=== PATIENT | female | born 1950 | race Caucasian/White ===

== ENCOUNTER 2022-03-12 20:53 | Emergency (ER) | payer MEDICARE, SELFPAY ==
[2022-03-12 21:27] VITALS: BP 171/85; PULSE 98; RESP 18; TEMP 36.3; O2SAT 97; BMI 33.7
--- NOTE | 2022-03-12 21:43 | CRLHL7_ITS ---
For Patients: As a result of the Century Cures Act, medical imaging exams and procedure reports are released immediately into your electronic medical record. You may view this report before your referring provider. If you have questions, please contact your health care provider. INDICATION: Hematuria. History of kidney stones. TECHNIQUE: CT abdomen and pelvis without contrast. COMPARISON: CT chest/abdomen/pelvis dated 11/26/2021. FINDINGS: Lower chest: No focal consolidation. Evaluation of solid organs is limited secondary to lack of IV contrast administration. Liver: Too small to characterize hypodense hepatic lesions, stable, likely benign in the absence of a known malignancy. Gallbladder and bile ducts: Postcholecystectomy. Pancreas: Unremarkable. Spleen: Unremarkable. Adrenal glands: Unremarkable. Kidneys: Multiple subcentimeter right renal calculi, overall renal stone burden has increased since prior study. There is a 0.6 cm calculus in the right renal pelvis, however there is no significant hydronephrosis or hydroureter. Interval decrease in size of a 3.0 cm cyst in the lower pole of the right kidney. Retroperitoneum: No lymphadenopathy. Bowel and mesentery: Bowel is not obstructed. Postsurgical changes at the cecum. No significant ascites. Stable perigastric postoperative changes. Stable sequelae of sclerosing mesenteritis. No pneumoperitoneum. Bladder: Decompressed, suboptimally evaluated. No bladder calculi identified. Reproductive organs: Posthysterectomy. Pelvic lymph nodes: No lymphadenopathy. Vessels: Mild atherosclerotic calcifications. Abdominal wall: No acute abdominal wall abnormality. Bones: Multilevel degenerative changes of the spine. Bones are osteopenic. Stable sclerotic lesion in the L2 vertebral body. IMPRESSION: 1. Multiple subcentimeter right renal calculi, overall renal stone burden has increased since prior study. This includes a 0.6 cm calculus in the right renal pelvis. There is no significant hydronephrosis or hydroureter. 2. Interval decrease in size of a 3.0 cm cyst in the lower pole of the right kidney. 3. Stable additional incidental findings as above. Please note that all CT scans at this facility use dose modulation, iterative reconstruction, and/or weight-based dosing when appropriate to reduce radiation dose to as low as reasonably achievable. Dictated by Nelli Lynn MD @ 03/12/2022 10:56:46 PM (Electronically Signed)
[2022-03-12 22:08] LABS: Appearance Urine Slightly Cloudy (Clear); Bilirubin Urine 2+ (Negative); Blood Urine 3+ (Negative); Color Urine Red (Yellow); Glucose Urine Negative (Negative); Ketones Urine 1+ (Negative); Leukocyte Esterase Urine Negative (Negative); Nitrite Urine Negative (Negative); Protein Urine 3+ (Negative); Specific Gravity Urine 1.015 (1.000-1.030); pH Urine 5.5 (5.0-8.5)
[2022-03-12 22:12] LABS: Chloride* 105 mmol/L (96-114)
[2022-03-12 22:13] LABS: Potassium* 3.9 mmol/L (3.6-5.1); Sodium* 141 mmol/L (135-149)
[2022-03-12 22:15] LABS: Creatinine* 1.1 mg/dL (0.5-1.5); Est. Creatinine Clearance* 44.29; Estimated Glomerular Filt Rate 53 ml/min
[2022-03-12 22:16] LABS: Blood Urea Nitrogen* 16 mg/dL (7-30); Calcium* 8.5 mg/dL (8.4-10.6); Carbon Dioxide* 31 mmol/L (20-32); Glucose* 83 mg/dL (60-115); INR 2.53 (0.91-1.10); Prothrombin Time 27.6 Seconds
[2022-03-12 22:19] LABS: Bacteria Urine Few; RBC Urine >100 (0-2); Squamous Epithelial Cell Urine Few (None-Few)
[2022-03-12 22:20] LABS: Basophils Absolute Auto 0.04 K/uL (0.00-0.30); Basophils Percent Auto 0.7 % (0.0-3.0); Eosinophils Absolute Auto 0.37 K/uL (0.00-0.50); Eosinophils Percent Auto 6.2 % (0.0-7.0); Hematocrit 40.3 % (33.0-51.0); Hemoglobin* 12.9 gm/dL (12.0-16.0); Immature Granulocytes Abs Auto 0.04 K/uL (0.00-0.30); Lymphocytes Absolute Auto 2.21 K/uL (0.90-2.90); Lymphocytes Percent Auto 36.8 % (20-44); Mean Corpuscular HGB Conc 32 gm/dL (32-36); Mean Corpuscular Hemoglobin 30 pg (26-34); Mean Corpuscular Volume 94 fL (80-100); Monocytes Percent Auto 10.2 % (0.0-11.0); Neutrophils Absolute Auto 2.73 K/uL (1.7-7.0); Neutrophils Percent Auto 45.4 % (42.0-72.0); Platelet Count* 205 K/uL (140-440); RDW Coefficient of Variation % 14.3 % (11.5-15.5)
[2022-03-12 22:21] LABS: Slide Review Reflex No
--- NOTE | 2022-03-12 22:21 | ED_ITS ---
HPI - General Adult General Time Seen by Provider: 22:10 Date Seen: 03/12/22 Chief complaint: Urogenital Problems, Female Stated complaint: blood in urine and bruising Time Seen by Provider: 03/12/22 22:06 Source: patient Mode of arrival: ambulatory Limitations: no limitations History of Present Illness HPI narrative: 72-year-old female who presents today with hematuria. This started this evening. No other symptoms. Denies nausea, vomiting, abdominal pain, flank pain. No urinary frequency or urgency. She also has a bruise at the base for right thumb. She is on Coumadin for atrial fibrillation which previously caused acute CVA, INR yesterday was 2.3. Related Data Allergies Allergy/AdvReac Type Severity Reaction Status Date / Time No Known Drug Allergies Allergy Verified 03/12/22 21:26 Review of Systems Status of ROS: Reports: 10 or more systems reviewed and unremarkable except as noted in History and below PFSH PFSH Social History Smoking Status: Never smoker Do you use any of these nicotine containing products: None Second hand tobacco smoke exposure: No How often do you have a drink containing alcohol: monthly or less How many standard drinks containing alcohol do you have on a typical day: 1 or 2 How often do you have six or more drinks on one occasion: Never AUDIT-C Alcohol total score: 1 Non-prescribed substance use: denies use service: No Exam Const: Vital Signs, click to edit/add: Vital Signs - 24 hr 03/12/22 21:27 Temperature 97.4 F L Pulse Rate [Pulse Oximeter] 98 Respiratory Rate 18 Blood Pressure [Le ft Forearm] 171/85 H Pulse Oximetry 97 Oxygen Delivery Me thod Room Air Documenting provider has reviewed patient's vital signs: yes Common normals: no apparent distress, oriented x3, alert and well nourished HENMT: Common normals: normocephalic, head/scalp atraumatic, external ears normal and external nose normal Head and scalp: normocephalic and atraumatic Nose: external nose normal External ear: external ears normal Eye: Common normals: PERRL and conjunctivae normal Conjunctiva: conjunctiva(e) normal Pupil: PERRL Neck & C-Spine: Common normals: full ROM, no lymphadenopathy and supple Chest: Common normals: palpation of chest normal Resp: Common normals: normal respiratory effort and clear to auscultation bilaterally Auscultation: clear to auscultation bilaterally Cardio: Common normals: regular rate, regular rhythm and no murmurs Rate: regular rate Rhythm: regular rhythm GI: Common normals: Normal to inspection, nondistended, normoactive bowel sounds present, soft to palpation and non-tender Palpation: soft : Common normals: no CVA tenderness Bladder/kidney exam: no CVA tenderness Back & Pelvis: Common normals: no CVA tenderness and thoracic and lumbar spine normal to inspection Extremity: Common normals: normal to inspection, full ROM and no pedal edema Neuro: Common normals: oriented x3, CN's II-XII intact bilaterally and no focal motor deficits Sensorium/orientation: alert Psych: Common normals: mental status grossly normal Skin: Common normals: no rashes or lesions noted General skin exam: no rashes or lesions noted Course Course Hospital Course: Patient seen and examined, prior records reviewed. Patient presents with painless hematuria today. History of kidney stones. CT scan personally reviewed by me shows some stones in the kidneys bilaterally but no ureteral stones, also a right renal cyst. There appears to be some bladder wall thickening although this may be due to decompression of the bladder. Labs and urinalysis are ordered if these are normal, patient be discharged with outpatient follow-up. Reevaluation(s) Reevaluation #1: Urinalysis demonstrates hematuria with few bacteria, white blood cells not out of proportion to level of hematuria. INR is therapeutic. Basic panel is reassuring. Radiology interpretation of CT agrees with my initial inter pretation. Patient should follow up with the primary care next week and Urology referral if hematuria persists for cystoscopy for evaluation for bladder cancer, av malformation, or other cause of hematuria. At this point, would have patient continue her anticoagulation as risk of the acute CVA is higher than risk of severe hemorrhage from hematuria. Vital Signs Vital signs: Initial Vital Signs Temperature 97.4 F L 03/12/22 21:27 Temperature Source Temporal Artery Scan 03/12/22 21:27 Pulse Rate 98 03/12/22 21:27 Pulse Rhythm 03/12/22 21:27 Respiratory Rate 18 03/12/22 21:27 Blood Pressure 171/85 H 03/12/22 21:27 Blood Pressure Mean 113 03/12/22 21:27 Blood Pressure Position Supine 03/12/22 21:27 Pulse Oximetry 97 03/12/22 21:27 Oxygen Delivery Method 03/12/22 21:27 Vital Signs Temperature 97.4 F L 03/12/22 21:27 Pulse Rate 98 03/12/22 21:27 Respiratory Rate 18 03/12/22 21:27 Blood Pressure 171/85 H 03/12/22 21:27 Pulse Oximetry 97 03/12/22 21:27 Oxygen Delivery Method 03/12/22 21:27 Temperature 97.4 F L 03/12/22 21:27 Pulse Rate 98 03/12/22 21:27 Respiratory Rate 18 03/12/22 21:27 Blood Pressure 171/85 H 03/12/22 21:27 Pulse Oximetry 97 03/12/22 21:27 Oxygen Delivery Method 03/12/22 21:27 Medical Decision Making Medical Records Medical records reviewed: Yes I reviewed the patient's medical records Lab Data Lab results reviewed: Yes I reviewed the patient's lab results Labs: Lab Results 03/12/22 03/12/22 03/12/22 Range/Units 21:53 21:55 21:55 WBC 6.00 (4.50-11.00) K/uL RBC 4.30 (4.00-5.20) m/uL Hgb 12.9 (12.0-16.0) gm/dL Hct 40.3 (33.0-51.0) % MCV 94 (80-100) fL MCH 30 (26-34) pg MCHC 32 (32-36) gm/dL RDW Coeff of Walt 14.3 (11.5-15.5) % Plt Count 205 (140-440) K/uL Neut % (Auto) 45.4 (42.0-72.0) % Lymph % (Auto) 36.8 (20-44) % [place] % (Auto) 10.2 (0.0-11.0) % Eos % (Auto) 6.2 (0.0-7.0) % Baso % (Auto) 0.7 (0.0-3.0) % Neut # (Auto) 2.73 (1.7-7.0) K/uL Lymph # (Auto) 2.21 (0.90-2.90) K/uL [place] # (Auto) 0.60 (0.00-0.90) K/UL Eos # (Auto) 0.37 (0.00-0.50) K/uL Baso # (Auto) 0.04 (0.00-0.30) K/uL Abs Immat Gran (auto) 0.04 (0.00-0.30) K/uL INR 2.53 H (0.91-1.10) Sodium (135-149) mmol/L Potassium (3.6-5.1) mmol/L Chloride (96-114) mmol/L Carbon Dioxide (20-32) mmol/L BUN (7-30) mg/dL Creatinine (0.5-1.5) mg/dL Estimated Creat Clear Estimated GFR ml/min Glucose (60-115) mg/dL Calcium (8.4-10.6) mg/dL Urine Color Red A (Yellow) Urine Appearance Slightly Cloudy A (Clear) Urine pH 5.5 (5.0-8.5) Ur Specific [place] 1.015 (1.000-1.030) Urine Protein 3+ A (Negative) Urine Glucose (UA) Negative (Negative) Urine Ketones 1+ A (Negative) Urine Blood 3+ A (Negative) Urine Nitrite Negative (Negative) Urine Bilirubin 2+ A (Negative) Urine Urobilinogen 1.0 (0.2-1.0) Ur Leukocyte Esterase Negative (Negative) Urine RBC >100 A (0-2) Urine WBC 5-10 A (0-5) Ur Squamous Epith Cells Few (None-Few) Urine Bacteria Few A (None) 03/12/22 Range/Units 21:55 WBC (4.50-11.00) K/uL RBC (4.00-5.20) m/uL Hgb (12.0-16.0) gm/dL Hct (33.0-51.0) % MCV (80-100) fL MCH (26-34) pg MCHC (32-36) gm/dL RDW Coeff of Walt (11.5-15.5) % Plt Count (140-440) K/uL Neut % (Auto) (42.0-72.0) % Lymph % (Auto) (20-44) % [place] % (Auto) (0.0-11.0) % Eos % (Auto) (0.0-7.0) % Baso % (Auto) (0.0-3.0) % Neut # (Auto) (1.7-7.0) K/uL Lymph # (Auto) (0.90-2.90) K/uL [place] # (Auto) (0.00-0.90) K/UL Eos # (Auto) (0.00-0.50) K/uL Baso # (Auto) (0.00-0.30) K/uL Abs Immat Gran (auto) (0.00-0.30) K/uL INR (0.91-1.10) Sodium 141 (135-149) mmol/L Potassium 3.9 (3.6-5.1) mmol/L Chloride 105 (96-114) mmol/L Carbon Dioxide 31 (20-32) mmol/L BUN 16 (7-30) mg/dL Creatinine 1.1 (0.5-1.5) mg/dL Estimated Creat Clear 44.29 Estimated GFR 53 ml/min Glucose 83 (60-115) mg/dL Calcium 8.5 (8.4-10.6) mg/dL Urine Color (Yellow) Urine Appearance (Clear) Urine pH (5.0-8.5) Ur Specific [place] (1.000-1.030) Urine Protein (Negative) Urine Glucose (UA) (Negative) Urine Ketones (Negative) Urine Blood (Negative) Urine Nitrite (Negative) Urine Bilirubin (Negative) Urine Urobilinogen (0.2-1.0) Ur Leukocyte Esterase (Negative) Urine RBC (0-2) Urine WBC (0-5) Ur Squamous Epith Cells (None-Few) Urine Bacteria (None) Discharge Plan Discharge Clinical Impression: Gross hematuria, Anticoagulated on Coumadin Patient Disposition: Home, Self-Care Condition: Stable Instructions: Hematuria (ED) Additional Instructions: Make sure you stay well hydrated this weekend. Take antibiotics as prescribed. Follow-up with your primary care doctor next week. If symptoms persist, follow- up with urology. Follow Up/Referrals: Mayur Foster MD [Primary Care Provider] - Stand Alone Forms: [employer] Info Instructions
[2022-03-12 23:30] VITALS: BP 133/76; PULSE 68; RESP 18; O2SAT 99
== END 2022-03-13 00:08 | disposition home or self-care (01) ==
PROVIDERS: Emergency Provider Family Medicine; PCP Family Medicine
DX: R31.0 Gross hematuria (principal)
CPT/HCPCS: 36415; 74176; 80048; 81001; 85025; 85610; 87086; 99284

== ENCOUNTER 2022-03-18 06:17 | Emergency (ER) | payer MEDICARE, SELFPAY ==
[2022-03-18 06:24] VITALS: BP 144/84; PULSE 71; RESP 24; TEMP 35.6; O2SAT 96
--- NOTE | 2022-03-18 06:57 | CRLHL7_ITS ---
For Patients: As a result of the Century Cures Act, medical imaging exams and procedure reports are released immediately into your electronic medical record. You may view this report before your referring provider. If you have questions, please contact your health care provider. Indication: Right-sided flank pain Technique: Plain-film examination of abdomen was performed Comparison: Limited portions of a CT dated March 12, 2022. Findings: Fecal retention. Pacemaker. Postsurgical changes in the right upper quadrant. Degenerative changes of the spine. Pelvic calcifications likely phleboliths. No definite left renal calcifications. Re-demonstration of calcifications overlying the right kidney consistent with urolithiasis. There is 1 calcification identified measuring about 6 millimeters which is at the level L3-L4 on the right. This might be within the proximal right ureter or ureteral pelvic junction. This appears to be slightly more distal than it was on the CT. On the CT, it did not appear to be obstructive. Impression: Right-sided urolithiasis as described Dictated by Martin Mitchell MD @ 03/18/2022 7:30:28 AM (Electronically Signed)
[2022-03-18 07:09] LABS: Basophils Absolute Auto 0.05 K/uL (0.00-0.30); Basophils Percent Auto 0.8 % (0.0-3.0); Eosinophils Absolute Auto 0.23 K/uL (0.00-0.50); Eosinophils Percent Auto 3.5 % (0.0-7.0); Hematocrit 38.6 % (33.0-51.0); Hemoglobin* 12.5 gm/dL (12.0-16.0); Immature Granulocytes Abs Auto 0.01 K/uL (0.00-0.30); Lymphocytes Absolute Auto 2.36 K/uL (0.90-2.90); Lymphocytes Percent Auto 36.4 % (20-44); Mean Corpuscular HGB Conc 32 gm/dL (32-36); Mean Corpuscular Hemoglobin 30 pg (26-34); Mean Corpuscular Volume 93 fL (80-100); Monocytes Percent Auto 7.9 % (0.0-11.0); Neutrophils Absolute Auto 3.33 K/uL (1.7-7.0); Neutrophils Percent Auto 51.2 % (42.0-72.0); Platelet Count* 189 K/uL (140-440); RDW Coefficient of Variation % 14.2 % (11.5-15.5); Red Blood Count 4.17 m/uL (4.00-5.20); White Blood Count* 6.49 K/uL (4.50-11.00)
[2022-03-18 07:12] LABS: Slide Review Reflex No
[2022-03-18] MEDS: KETOROLAC 15 MG/ML inj 30 MG IVP (07:22)
[2022-03-18 07:23] LABS: Chloride* 109 mmol/L (96-114); Sodium* 140 mmol/L (135-149)
[2022-03-18 07:24] LABS: Potassium* 3.9 mmol/L (3.6-5.1)
[2022-03-18] MEDS: 0.9 % SODIUM CHLORIDE 1000 ml 1,000 ML IV (07:25)
[2022-03-18] MEDS: ONDANSETRON 2 MG/ML inj 4 MG IVP (07:25)
[2022-03-18 07:26] LABS: Carbon Dioxide* 26 mmol/L (20-32); Creatinine* 1.1 mg/dL (0.5-1.5); Estimated Glomerular Filt Rate 53 ml/min
[2022-03-18 07:27] LABS: Blood Urea Nitrogen* 31 mg/dL (7-30); Calcium* 8.9 mg/dL (8.4-10.6); Glucose* 121 mg/dL (60-115); INR 3.05 (0.91-1.10); Prothrombin Time 31.9 Seconds
--- NOTE | 2022-03-18 07:54 | ED_ITS ---
HPI - Abdominal Pain General Chief Complaint: Flank Pain Stated Complaint: Right side pain Time Seen by Provider: 03/18/22 06:49 Source: patient, RN notes reviewed and old records reviewed Mode of arrival: ambulatory Limitations: no limitations History of Present Illness HPI narrative: 72-year-old woman returns to the emergency department after being seen 6 days ago with hematuria. Hematuria has returned but in addition is sudden onset of severe, sharp stabbing right flank pain at 4:[address] scan 2 days ago demonstrated numerous subcentimeter renal calculi on the right side as well as a 6 mm calculus in the right renal pelvis. She was initiated on Keflex for presumed urinary tract infection. Unconvincing culture is reviewed. Due to historically severe nausea with opiates she has taken some ibuprofen in the interim. Is anticoagulated with Coumadin. Six days ago when seen had an INR of 2.5. She has not had any fever. Is nauseated. History of atrial fibrillation and related CVA prompting anticoagulation. Related Data Home Medications Medication Instructions Recorded Confirmed albuterol sulfate 90 mcg/actuation inhalation 03/18/22 aerosol inhaler carvedilol 3.125 mg tablet mg 03/18/22 tamoxifen 20 mg tablet mg 03/18/22 warfarin 5 mg tablet mg 03/18/22 Previous Rx's Medication Instructions Recorded tamsulosin 0.4 mg capsule (Flomax) 0.4 mg PO DAILY #7 caps 03/18/22 Allergies Allergy/AdvReac Type Severity Reaction Status Date / Time No Known Drug Allergies Allergy Verified 03/18/22 06:31 Review of Systems Status of ROS Reports: 6 or more systems reviewed and unremarkable except as noted in History and below [facility] Social History Smoking Status: Never smoker Do you use any of these nicotine containing products: None Second hand tobacco smoke exposure: No How often do you have a drink containing alcohol: monthly or less How many standard drinks containing alcohol do you have on a typical day: 1 or 2 How often do you have six or more drinks on one occasion: Never AUDIT-C Alcohol total score: 1 Non-prescribed substance use: denies use service: No Exam Narrative: Exam Narrative: Is pleasant. clearly uncomfortable. With an emesis bag. Hand at right flank. Breathing easily. Moving all extremities difficulty. Well perfused peripherally. No lower extremity edema. Abdomen is soft. There is some right flank tenderness. Const: Vital Signs, click to edit/add: Vital Signs - 24 hr 03/18/22 06:24 03/18/22 08:35 03/18/22 08:39 Temperature 96.0 F L Pulse Rate [Right Pulse Oximeter] 71 Respiratory Rate 24 Blood Pressure [Ri ght Upper Arm] 144/84 H Pulse Oximetry 96 84 L 84 L Oxygen Delivery Me thod Room Air Room Air Nasal Cannula Oxygen Flow Rate 2 03/18/22 08:37 03/18/22 10:19 Temperature Pulse Rate [Right Pulse Oximeter] Respiratory Rate Blood Pressure [Ri ght Upper Arm] Pulse Oximetry 96 98 Oxygen Delivery Me thod Room Air Room Air Oxygen Flow Rate 2 Documenting provider has reviewed patient's vital signs: yes Course Course Hospital Course: Interviewed and exam as above. IV has been placed blood drawn. Reevaluation(s) Reevaluation #1: Returning after fluids and ketorolac. Looks more comfortable and she says it has taken the edge off. Though she clearly is still in a good deal of discomfort. We decided to proceed with that 0.5 mg of Dilaudid, like the less nausea inducing than morphine. Zofran is already on board, apparently this typically helps. Will add diphenhydramine for the anti-histaminic effect. Reevaluation #2: Markedly improved on reassessment with only a very small discomfort. Consultations Consultation #1: Discussed hematuria and anticoagulation with colleague. Vital Signs Vital signs: Initial Vital Signs Temperature 96.0 F L 03/18/22 06:24 Temperature Source Temporal Artery Scan 03/18/22 06:24 Pulse Rate 71 03/18/22 06:24 Respiratory Rate 24 03/18/22 06:24 Blood Pressure 144/84 H 03/18/22 06:24 Blood Pressure Mean 104 03/18/22 06:24 Blood Pressure Position Sitting 03/18/22 06:24 Pulse Oximetry 96 03/18/22 06:24 Oxygen Delivery Method 03/18/22 06:24 Vital Signs Temperature 96.0 F L 03/18/22 06:24 Pulse Rate 71 03/18/22 06:24 Respiratory Rate 24 03/18/22 06:24 Blood Pressure 144/84 H 03/18/22 06:24 Pulse Oximetry 96 03/18/22 06:24 Oxygen Delivery Method 03/18/22 06:24 Temperature 96.0 F L 03/18/22 06:24 Pulse Rate 71 03/18/22 06:24 Respiratory Rate 24 03/18/22 06:24 Blood Pressure 144/84 H 03/18/22 06:24 Pulse Oximetry 98 03/18/22 10:19 Oxygen Delivery Method 03/18/22 10:19 Oxygen Flow Rate 2 03/18/22 08:39 MDM - Abdominal Pain MDM Narrative Medical decision making narrative: We discussed options for pain management. Suspect that the stone that was evident in the renal pelvis has drifted. She would prefer not to receive opiates due to degree of nausea she gets. She would like ketorolac. Discussed that this likely to worsen her INR but perhaps a 1 time dose would be acceptable. Ordered a KUB. I did review this image. Radiology over-read also confirms renal calculi and the 6 mm renal pelvis stone noted on CT is suspected to have drifted distally. Looks to be approximately where she is complaining of pain. Medical Records Attestation: I reviewed the patient's medical records. Lab Data Attestation: I reviewed the patient's lab results. Labs: Lab Results 03/18/22 03/18/22 03/18/22 Range/Units 06:57 06:57 06:57 WBC 6.49 (4.50-11.00) K/uL RBC 4.17 (4.00-5.20) m/uL Hgb 12.5 (12.0-16.0) gm/dL Hct 38.6 (33.0-51.0) % MCV 93 (80-100) fL MCH 30 (26-34) pg MCHC 32 (32-36) gm/dL RDW Coeff of Walt 14.2 (11.5-15.5) % Plt Count 189 (140-440) K/uL Neut % (Auto) 51.2 (42.0-72.0) % Lymph % (Auto) 36.4 (20-44) % [place] % (Auto) 7.9 (0.0-11.0) % Eos % (Auto) 3.5 (0.0-7.0) % Baso % (Auto) 0.8 (0.0-3.0) % Neut # (Auto) 3.33 (1.7-7.0) K/uL Lymph # (Auto) 2.36 (0.90-2.90) K/uL [place] # (Auto) 0.50 (0.00-0.90) K/UL Eos # (Auto) 0.23 (0.00-0.50) K/uL Baso # (Auto) 0.05 (0.00-0.30) K/uL Abs Immat Gran (auto) 0.01 (0.00-0.30) K/uL INR 3.05 H (0.91-1.10) Sodium 140 (135-149) mmol/L Potassium 3.9 (3.6-5.1) mmol/L Chloride 109 (96-114) mmol/L Carbon Dioxide 26 (20-32) mmol/L BUN 31 H (7-30) mg/dL Creatinine 1.1 (0.5-1.5) mg/dL Estimated GFR 53 ml/min Glucose 121 H (60-115) mg/dL Calcium 8.9 (8.4-10.6) mg/dL Urine Color (Yellow) Urine Appearance (Clear) Urine pH (5.0-8.5) Ur Specific [place] (1.000-1.030) Urine Protein (Negative) Urine Glucose (UA) (Negative) Urine Ketones (Negative) Urine Blood (Negative) Urine Nitrite (Negative) Urine Bilirubin (Negative) Urine Urobilinogen (0.2-1.0) Ur Leukocyte Esterase (Negative) Urine RBC (0-2) Urine WBC (0-5) Urine WBC Clumps (None) Ur Squamous Epith Cells (None-Few) Urine Bacteria (None) 03/18/22 Range/Units 09:40 WBC (4.50-11.00) K/uL RBC (4.00-5.20) m/uL Hgb (12.0-16.0) gm/dL Hct (33.0-51.0) % MCV (80-100) fL MCH (26-34) pg MCHC (32-36) gm/dL RDW Coeff of [place] (11.5-15.5) % Plt Count (140-440) K/uL Neut % (Auto) (42.0-72.0) % Lymph % (Auto) (20-44) % [place] % (Auto) (0.0-11.0) % Eos % (Auto) (0.0-7.0) % Baso % (Auto) (0.0-3.0) % Neut # (Auto) (1.7-7.0) K/uL Lymph # (Auto) (0.90-2.90) K/uL [place] # (Auto) (0.00-0.90) K/UL Eos # (Auto) (0.00-0.50) K/uL Baso # (Auto) (0.00-0.30) K/uL Abs Immat Gran (auto) (0.00-0.30) K/uL INR (0.91-1.10) Sodium (135-149) mmol/L Potassium (3.6-5.1) mmol/L Chloride (96-114) mmol/L Carbon Dioxide (20-32) mmol/L BUN (7-30) mg/dL Creatinine (0.5-1.5) mg/dL Estimated GFR ml/min Glucose (60-115) mg/dL Calcium (8.4-10.6) mg/dL Urine Color Yellow (Yellow) Urine Appearance Slightly Cloudy A (Clear) Urine pH 5.5 (5.0-8.5) Ur Specific [place] 1.025 (1.000-1.030) Urine Protein 2+ A (Negative) Urine Glucose (UA) Negative (Negative) Urine Ketones Negative (Negative) Urine Blood 3+ A (Negative) Urine Nitrite Negative (Negative) Urine Bilirubin Negative (Negative) Urine Urobilinogen 0.2 (0.2-1.0) Ur Leukocyte Esterase Negative (Negative) Urine RBC 50-100 A (0-2) Urine WBC 0-2 (0-5) Urine WBC Clumps None (None) Ur Squamous Epith Cells Few (None-Few) Urine Bacteria Few A (None) Discharge Plan Discharge Clinical Impression: Hematuria, Colic, ureteral, Calculus, ureteral Patient Disposition: Home w/ Parent or Adult Condition: Improved Additional Instructions: Continue to focus on hydration. Strain urine over this next week. Taking NSAIDs like ibuprofen is raising your INR. I would use caution with those. I know that opiates make you nauseated but pretreating them like you say with Zofran or maybe diphenhydramine would be helpful in decreasing nausea effect of opiates and then less problematic with your INR. I would follow up on Tuesday to recheck your INR. Take 1/2 usual coumadin dose today. Return for uncontrolled pain, marked increase in bleeding, repeated vomiting such that you can not control your pain, fever. Be seen also if pain still present in 5 days. Zofran and Percocet from [facility]. Prescriptions: New tamsulosin [Flomax] 0.4 mg capsule 0.4 mg PO DAILY Qty: 7 1RF Rx Instructions: for ureteral colic No Action carvedilol 3.125 mg tablet warfarin 5 mg tablet albuterol sulfate 90 mcg/actuation HFA aerosol inhaler INHALATION tamoxifen 20 mg tablet Follow Up/Referrals: Mayur Foster MD [Primary Care Provider] - Stand Alone Forms: [email or web address] Info Instructions
[2022-03-18] MEDS: HYDROmorphone 0.5 mg/0.5 ml inj IVP (08:22)
[2022-03-18] MEDS: diphenhydrAMINE 50 MG/ML inj 12.5 MG IVP (08:22)
[2022-03-18 08:35] VITALS: O2SAT 84
[2022-03-18 08:37] VITALS: O2SAT 96
[2022-03-18 08:39] VITALS: O2SAT 84
[2022-03-18 10:02] LABS: Appearance Urine Slightly Cloudy (Clear); Bilirubin Urine Negative (Negative); Blood Urine 3+ (Negative); Color Urine Yellow (Yellow); Glucose Urine Negative (Negative); Ketones Urine Negative (Negative); Leukocyte Esterase Urine Negative (Negative); Nitrite Urine Negative (Negative); Protein Urine 2+ (Negative); Specific Gravity Urine 1.025 (1.000-1.030); Urobilinogen Urine 0.2 (0.2-1.0); pH Urine 5.5 (5.0-8.5)
[2022-03-18 10:07] LABS: RBC Urine 50-100 (0-2); WBC Urine 0-2 (0-5)
[2022-03-18 10:14] LABS: Squamous Epithelial Cell Urine Few (None-Few)
[2022-03-18 10:15] LABS: Bacteria Urine Few
[2022-03-18 10:19] VITALS: O2SAT 98
== END 2022-03-18 10:13 | disposition home or self-care (01) ==
PROVIDERS: Emergency Provider Family Medicine; PCP Family Medicine
DX: R31.9 Hematuria, unspecified (principal); N20.1 Calculus of ureter
CPT/HCPCS: 36415; 74018; 80048; 81003; 81015; 85025; 85610; 87086; 96374; 96375; 99283; 99284; J1170; J1200; J1885; J2405; J7030

== ENCOUNTER 2022-03-20 07:59 | Emergency (ER) | payer MEDICARE, SELFPAY ==
[2022-03-20] VITALS (14 sets, daily range): BP systolic 122–146; BP diastolic 51–76; PULSE 60–72; RESP 14–20; TEMP 35.8; O2SAT 97–100; BMI 33.7
--- NOTE | 2022-03-20 08:22 | ED_ITS ---
HPI - General Adult General Time Seen by Provider: : Date Seen: 03/20/22 Chief complaint: Flank Pain Stated complaint: Right Flank Pain Time Seen by Provider: 03/20/22 08:04 Source: patient, RN notes reviewed and old records reviewed (Prior 2 ED visits reviewed) Mode of arrival: ambulatory Limitations: no limitations History of Present Illness HPI narrative: Patient is a 72-year-old female coming and with a known kidney stone with worsening right-sided abdominal pain. She started with hematuria I believe around March 12, was seen here. Was subsequently seen on March 18 with increased pain. KUB done on the showed that a 6 mm stone had probably moved. Patient is on chronic anticoagulation with Coumadin for history of a CVA. She states her pain has increased. She had some hematuria yesterday indicating to her that this stone probably moved. Since then she has developed increasing abdominal pain. She has been trying ibuprofen at home, has been maintained on Flomax, has been trying Percocet. She did have an emesis this morning and is nauseated. She does not think she can urinate at this time. Her pain is uncontrolled. She is requesting IV Toradol. Reviewed with her that she is on Coumadin and we need to be careful with NSAIDs. She states she has cut down on her Coumadin herself because she has been using ibuprofen for pain c ontrol. She denies any fevers. No concomitant cough or cold symptoms. She reports she has had kidney stones 7 other times and they have all passed without intervention. Related Data Home Medications Medication Instructions Recorded Confirmed albuterol sulfate 90 mcg/actuation inhalation 03/18/22 aerosol inhaler carvedilol 3.125 mg tablet mg 03/18/22 tamoxifen 20 mg tablet mg 03/18/22 warfarin 5 mg tablet mg 03/18/22 Previous Rx's Medication Instructions Recorded tamsulosin 0.4 mg capsule (Flomax) 0.4 mg PO DAILY #7 caps 03/18/22 Allergies Allergy/AdvReac Type Severity Reaction Status Date / Time No Known Drug Allergies Allergy Verified 03/18/22 06:31 Review of Systems Status of ROS: Reports: 10 or more systems reviewed and unremarkable except as noted in History and below PFSH PFSH Social History Smoking Status: Never smoker Do you use any of these nicotine containing products: None Second hand tobacco smoke exposure: No How often do you have a drink containing alcohol: monthly or less How many standard drinks containing alcohol do you have on a typical day: 1 or 2 How often do you have six or more drinks on one occasion: Never AUDIT-C Alcohol total score: 1 Non-prescribed substance use: denies use service: No Exam Const: Vital Signs, click to edit/add: Vital Signs - 24 hr 03/20/22 08:13 03/20/22 10:30 03/20/22 11:00 Temperature 96.5 F L Pulse Rate [Pulse Oximeter] 61 72 60 Respiratory Rate 20 16 16 Blood Pressure [Ri ght Upper Arm] 125/72 137/72 132/65 Pulse Oximetry 97 99 99 Oxygen Delivery Me thod Room Air Nasal Cannula Nasal Cannula Oxygen Flow Rate 2 2 03/20/22 11:30 03/20/22 12:00 03/20/22 12:30 Temperature Pulse Rate [Pulse Oximeter] 60 60 60 Respiratory Rate 16 14 14 Blood Pressure [Ri ght Upper Arm] 122/51 L 139/76 146/74 H Pulse Oximetry 100 100 99 Oxygen Delivery Me thod Nasal Cannula Nasal Cannula Nasal Cannula Oxygen Flow Rate 2 2 2 03/20/22 13:00 03/20/22 13:30 03/20/22 14:00 Temperature Pulse Rate [Pulse Oximeter] 60 60 60 Respiratory Rate 16 16 14 Blood Pressure [Ri ght Upper Arm] 139/69 131/64 122/67 Pulse Oximetry 99 100 99 Oxygen Delivery Me thod Nasal Cannula Nasal Cannula Nasal Cannula Oxygen Flow Rate 2 2 2 03/20/22 14:30 03/20/22 15:00 03/20/22 15:30 Temperature Pulse Rate [Pulse Oximeter] 60 60 60 Respiratory Rate 14 14 16 Blood Pressure [Ri ght Upper Arm] 123/62 131/62 125/59 L Pulse Oximetry 99 99 99 Oxygen Delivery Me thod Nasal Cannula Nasal Cannula Nasal Cannula Oxygen Flow Rate 2 2 2 03/20/22 17:30 03/20/22 16:30 Temperature Pulse Rate [Pulse Oximeter] 60 60 Respiratory Rate 16 15 Blood Pressure [Ri ght Upper Arm] 123/70 123/58 L Pulse Oximetry 99 100 Oxygen Delivery Me thod Nasal Cannula Nasal Cannula Oxygen Flow Rate 2 2 Documenting provider has reviewed patient's vital signs: yes Common normals: oriented x3, no limitations, healthy appearing, alert and well nourished General appearance: cooperative and in distress (Groaning a little bit, hanging onto emesis bag. Looks mildly uncomfortable) mild Nutritional appearance: overweight HENMT: Common normals: normocephalic, head/scalp atraumatic, hearing grossly normal bilaterally, external ears normal, external nose normal, nasal mucous membranes and turbinates normal, moist oral mucous membranes, oropharynx normal and dentition normal Head and scalp: normocephalic and atraumatic Nose: external nose normal and nasal mucous membranes and turbinates normal External ear: external ears normal Eye: Common normals: PERRL, EOMs intact bilaterally, conjunctivae normal and no scleral icterus Conjunctiva: conjunctiva(e) normal Pupil: PERRL Neck & C-Spine: Common normals: full ROM, no lymphadenopathy, supple, no meningeal signs, no JVD and thyroid normal Thyroid: thyroid normal Resp: Common normals: normal respiratory effort, no retractions, no use of accessory muscles and clear to auscultation bilaterally Auscultation: clear to auscultation bilaterally Cardio: Common normals: no JVD, regular rate, regular rhythm, S1 normal heart sound, S2 normal heart sound, no gallops, no clicks and no murmurs Rate: regular rate Rhythm: regular rhythm Heart sounds: S1 normal and S2 normal GI: Common normals: Normal to inspection, nondistended, normoactive bowel sounds present, soft to palpation, no hepatosplenomegaly and no masses Palpation: soft, tender (Mild tenderness right mid to lower abdomen, no rebound or guarding) Details: RLQ and no hepatosplenomegaly Neuro: Common normals: oriented x3 Sensorium/orientation: alert Meningeal signs: no meningeal signs Speech: speech normal Gait (neuro): normal gait Course Course Hospital Course: Will initiate an IV, a L of normal saline over 2 hours, 4 mg IV Zofran and 15 mg IV Toradol. We will place her on pulse oximetry and motor narcotic pain management if needed. I will recheck a CBC, basic metabolic panel and obtain urinalysis. This time I do think we should reimage her with a CT for better delineation to see if there is anything within the urinary system suggesting that she should have further intervention. We will also check an INR. Reevaluation(s) Reevaluation #1: Patient is back from CT. She is up to the bathroom on was able to leave us a urine specimen. She states her pain is letting up. I did review with her that if it was not improving that we could initiate IV narcotic medicines. She stated she really did not want to do that as those medicines just make her sick. Time: 09:03 Consultations Consultation #1: Spoke with our radiologist, he states that many stones have dropped down and or obstructing in the distal ureter. He states this is not going to pass on its own and will need intervention. I have subsequently spoken with patient. She does see Dr. Foster at [facility], will see if there is any possibility for transfer to Urology. We no longer have urology services in [place]. Time: 10:28 Consultation #2: Have spoken with the hospitalist at [facility]. Barr whom is pending acceptance of this patient, will need to talk to Urology on-call as well. There is a bed hold right now at [facility], we will have await for transfer upwards of about 8 hours. I will let them know if for some reason her COVID should come back positive or if there is a change in status. Time: 11:26 Consultation #3: Spoke with Dr. Truong in Urology. He will accept this patient via the hospitalist. Time: 11:58 Vital Signs Vital signs: Initial Vital Signs Temperature 96.5 F L 03/20/22 08:13 Temperature Source Temporal Artery Scan 03/20/22 08:13 Pulse Rate 61 03/20/22 08:13 Respiratory Rate 20 03/20/22 08:13 Blood Pressure 125/72 03/20/22 08:13 Blood Pressure Mean 89 03/20/22 08:13 Blood Pressure Position Supine 03/20/22 08:13 Pulse Oximetry 97 03/20/22 08:13 Oxygen Delivery Method 03/20/22 08:13 Vital Signs Temperature 96.5 F L 03/20/22 08:13 Pulse Rate 61 03/20/22 08:13 Respiratory Rate 20 03/20/22 08:13 Blood Pressure 125/72 03/20/22 08:13 Pulse Oximetry 97 03/20/22 08:13 Oxygen Delivery Method 03/20/22 08:13 Temperature 96.5 F L 03/20/22 08:13 Pulse Rate 60 03/20/22 17:30 Respiratory Rate 16 03/20/22 17:30 Blood Pressure 123/70 03/20/22 17:30 Pulse Oximetry 99 03/20/22 17:30 Oxygen Delivery Method 03/20/22 17:30 Oxygen Flow Rate 2 03/20/22 17:30 Medical Decision Making Lab Data Labs: Lab Results 03/20/22 03/20/22 03/20/22 Range/Units 08:30 08:30 08:30 WBC 8.08 (4.50-11.00) K/uL RBC 3.82 L (4.00-5.20) m/uL Hgb 11.6 L (12.0-16.0) gm/dL Hct 36.0 (33.0-51.0) % MCV 94 (80-100) fL MCH 30 (26-34) pg MCHC 32 (32-36) gm/dL RDW Coeff of Walt 14.2 (11.5-15.5) % Plt Count 164 (140-440) K/uL Neut % (Auto) 71.3 (42.0-72.0) % Lymph % (Auto) 19.3 L (20-44) % [place] % (Auto) 6.1 (0.0-11.0) % Eos % (Auto) 2.6 (0.0-7.0) % Baso % (Auto) 0.5 (0.0-3.0) % Neut # (Auto) 5.76 (1.7-7.0) K/uL Lymph # (Auto) 1.60 (0.90-2.90) K/uL [place] # (Auto) 0.50 (0.00-0.90) K/UL Eos # (Auto) 0.21 (0.00-0.50) K/uL Baso # (Auto) 0.04 (0.00-0.30) K/uL Abs Immat Gran (auto) 0.02 (0.00-0.30) K/uL INR 2.63 H (0.91-1.10) Sodium 137 (135-149) mmol/L Potassium 4.4 (3.6-5.1) mmol/L Chloride 105 (96-114) mmol/L Carbon Dioxide 28 (20-32) mmol/L BUN 29 (7-30) mg/dL Creatinine 1.2 (0.5-1.5) mg/dL Estimated Creat Clear 40.60 Estimated GFR 48 ml/min Glucose 145 H (60-115) mg/dL Calcium 8.6 (8.4-10.6) mg/dL Urine Color (Yellow) Urine Appearance (Clear) Urine pH (5.0-8.5) Ur Specific [place] (1.000-1.030) Urine Protein (Negative) Urine Glucose (UA) (Negative) Urine Ketones (Negative) Urine Blood (Negative) Urine Nitrite (Negative) Urine Bilirubin (Negative) Urine Urobilinogen (0.2-1.0) Ur Leukocyte Esterase (Negative) Urine RBC (0-2) Urine WBC (0-5) Ur Squamous Epith Cells (None-Few) Urine Bacteria (None) SARS-CoV-2 (PCR) (Negative) 03/20/22 03/20/22 Range/Units 08:50 10:28 WBC (4.50-11.00) K/uL RBC (4.00-5.20) m/uL Hgb (12.0-16.0) gm/dL Hct (33.0-51.0) % MCV (80-100) fL MCH (26-34) pg MCHC (32-36) gm/dL RDW Coeff of Walt (11.5-15.5) % Plt Count (140-440) K/uL Neut % (Auto) (42.0-72.0) % Lymph % (Auto) (20-44) % [place] % (Auto) (0.0-11.0) % Eos % (Auto) (0.0-7.0) % Baso % (Auto) (0.0-3.0) % Neut # (Auto) (1.7-7.0) K/uL Lymph # (Auto) (0.90-2.90) K/uL [place] # (Auto) (0.00-0.90) K/UL Eos # (Auto) (0.00-0.50) K/uL Baso # (Auto) (0.00-0.30) K/uL Abs Immat Gran (auto) (0.00-0.30) K/uL INR (0.91-1.10) Sodium (135-149) mmol/L Potassium (3.6-5.1) mmol/L Chloride (96-114) mmol/L Carbon Dioxide (20-32) mmol/L BUN (7-30) mg/dL Creatinine (0.5-1.5) mg/dL Estimated Creat Clear Estimated GFR ml/min Glucose (60-115) mg/dL Calcium (8.4-10.6) mg/dL Urine Color Yellow (Yellow) Urine Appearance Clear (Clear) Urine pH 5.0 (5.0-8.5) Ur Specific [place] >= 1.030 (1.000-1.030) Urine Protein Negative (Negative) Urine Glucose (UA) Negative (Negative) Urine Ketones Negative (Negative) Urine Blood 2+ A (Negative) Urine Nitrite Negative (Negative) Urine Bilirubin Negative (Negative) Urine Urobilinogen 0.2 (0.2-1.0) Ur Leukocyte Esterase Negative (Negative) Urine RBC 10-25 A (0-2) Urine WBC 2-5 (0-5) Ur Squamous Epith Cells Few (None-Few) Urine Bacteria Few A (None) SARS-CoV-2 (PCR) Negative SARS-CoV-2 (Negative) Imaging Data CT scan - abdomen: Attestation: I have reviewed the pertinent imaging results. Radiologist's impression: Patient: AMINA ALVARES Facility:?[facility] Patient ID:?[id number] Site Patient ID:?[id number]. Site :?[id number] Study:?CT Abdomen/Pelvis WITHOUT-03/20/2022 9:03:46 AM Ordering Physician:Tj Plascencia Final Report: Indication: Right flank pain Technique: Noncontrast CT abdomen and pelvis Please note that all CT scans at this facility use dose modulation, iterative reconstruction, and/or weight-based dosing when appropriate to reduce radiation dose to as low as reasonably achievable. Comparison: 03/12/2022 Findings: Multiple stones are now present within the right distal ureter with associated right hydroureter and right hydronephrosis. Small stones remain within the right renal pelvis. Right perinephric stranding is present along with right periureteral stranding. No stone within the bladder. Ovaries are normal. Uterus appears absent. Left ovary and left kidney are normal. Normal adrenal glands. Spleen normal. Postop changes to the stomach. Gallbladder absent. Normal noncontrast enhanced liver. 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 Trace pelvic free fluid. No bowel obstruction or free air. Lung bases clear. Stable density within the L2 vertebral body. Chronic wedging of L1. Impression: Multiple stones in the right distal ureter measuring in total approximately 1.5 cm in craniocaudad dimension. Associated right hydronephrosis and right hydroureter. A few small stones remain within the right renal pelvis. Please note that all CT scans at this facility use dose modulation, iterative reconstruction, and/or weight-based dosing when appropriate to reduce radiation dose to as low as reasonably achievable. Dictated by Mike Aguayo MD @ 03/20/2022 9:28:18 AM (Electronic Signature) Critical Care Time Critical Care Time Critical Care Time: No Discharge Plan Discharge Clinical Impression: Acute unilateral obstructive uropathy Patient Disposition: Xfer [facility] Discharge Location: [facility] Condition: Stable Prescriptions: No Action carvedilol 3.125 mg tablet warfarin 5 mg tablet albuterol sulfate 90 mcg/actuation HFA aerosol inhaler INHALATION tamoxifen 20 mg tablet tamsulosin [Flomax] 0.4 mg capsule 0.4 mg PO DAILY Qty: 7 1RF Rx Instructions: for ureteral colic Stand Alone Forms: MyHealth Info Instructions
[2022-03-20] MEDS: 0.9 % SODIUM CHLORIDE 1000 ml 1,000 ML 500 ML IV (08:35)
[2022-03-20] MEDS: ONDANSETRON 2 MG/ML inj 4 MG IVP (08:36)
[2022-03-20] MEDS: KETOROLAC 15 MG/ML inj IVP (08:38)
[2022-03-20 08:39] LABS: Basophils Absolute Auto 0.04 K/uL (0.00-0.30); Basophils Percent Auto 0.5 % (0.0-3.0); Eosinophils Absolute Auto 0.21 K/uL (0.00-0.50); Eosinophils Percent Auto 2.6 % (0.0-7.0); Hemoglobin* 11.6 gm/dL (12.0-16.0); Immature Granulocytes Abs Auto 0.02 K/uL (0.00-0.30); Lymphocytes Percent Auto 19.3 % (20-44); Mean Corpuscular HGB Conc 32 gm/dL (32-36); Mean Corpuscular Hemoglobin 30 pg (26-34); Mean Corpuscular Volume 94 fL (80-100); Monocytes Percent Auto 6.1 % (0.0-11.0); Neutrophils Absolute Auto 5.76 K/uL (1.7-7.0); Neutrophils Percent Auto 71.3 % (42.0-72.0); Platelet Count* 164 K/uL (140-440); RDW Coefficient of Variation % 14.2 % (11.5-15.5); Red Blood Count 3.82 m/uL (4.00-5.20); White Blood Count* 8.08 K/uL (4.50-11.00)
[2022-03-20 08:45] LABS: Slide Review Reflex No
[2022-03-20 08:51] LABS: Chloride* 105 mmol/L (96-114); Potassium* 4.4 mmol/L (3.6-5.1); Sodium* 137 mmol/L (135-149)
[2022-03-20 08:53] LABS: INR 2.63 (0.91-1.10); Prothrombin Time 28.5 Seconds
[2022-03-20 08:54] LABS: Blood Urea Nitrogen* 29 mg/dL (7-30); Calcium* 8.6 mg/dL (8.4-10.6); Carbon Dioxide* 28 mmol/L (20-32); Creatinine* 1.2 mg/dL (0.5-1.5); Estimated Glomerular Filt Rate 48 ml/min; Glucose* 145 mg/dL (60-115)
[2022-03-20 09:13] LABS: Appearance Urine Clear (Clear); Bilirubin Urine Negative (Negative); Blood Urine 2+ (Negative); Color Urine Yellow (Yellow); Glucose Urine Negative (Negative); Ketones Urine Negative (Negative); Leukocyte Esterase Urine Negative (Negative); Nitrite Urine Negative (Negative); Protein Urine Negative (Negative); Specific Gravity Urine >= 1.030 (1.000-1.030); Urobilinogen Urine 0.2 (0.2-1.0)
[2022-03-20 09:20] LABS: Bacteria Urine Few; Squamous Epithelial Cell Urine Few (None-Few)
[2022-03-20] MEDS: fentaNYL 100 MCG/2 ML inj 50 MCG IVP ×3 (09:49→13:37)
--- NOTE | 2022-03-20 09:53 | PC.NURSE ---
pain starting to come back, fenanyl given
[2022-03-20 11:51] LABS: SARS PCR* Negative SARS-CoV-2 (Negative)
== END 2022-03-20 17:25 | disposition short-term general hospital (02) ==
PROVIDERS: Emergency Provider Family Medicine; PCP Family Medicine
DX: N13.9 Obstructive and reflux uropathy, unspecified (principal); N20.9 Urinary calculus, unspecified; Z87.442 Personal history of urinary calculi; Z13.0 Encounter for screening for diseases of the blood and blood-forming organs and certain disorders involving the immune mechanism
CPT/HCPCS: 36415; 74176; 80048; 81001; 85025; 85610; 87086; 87635; 96374; 96375; 96376; 99284; J1885; J2405; J3010; J7030

== ENCOUNTER 2022-03-20 16:56 | Outpatient (CLI) | payer MEDICARE, SELFPAY | END 2022-03-20 16:57 | disposition home or self-care (01) | LOC: AMB 03-27 20:26 | PROVIDERS: PCP Family Medicine; Visit Provider Family Medicine | DX: N20.0 Calculus of kidney (principal); M54.9 Dorsalgia, unspecified | CPT/HCPCS: A0425; A0426 ==

== ENCOUNTER 2022-07-07 09:45 | Outpatient (RCR) | payer MEDICARE, SELFPAY ==
[2022-05-20 09:45] VITALS: BP 141/77; PULSE 82; RESP 18; TEMP 36.4; O2SAT 95
[2022-05-20 10:06] LABS: Creatinine* 1.1 mg/dL (0.5-1.5); Est. Creatinine Clearance* 44.29; Estimated Glomerular Filt Rate 53 ml/min
[2022-05-20] MEDS: DENOSUMAB 60 MG/ML SYRINGE SUBCUT (10:20)
== END 2022-10-03 23:59 | disposition home or self-care (01) ==
LOC: CCIC 09:45
PROVIDERS: PCP Family Medicine; Referring Provider Family Medicine; Visit Provider Internal Medicine Hematology & Oncology
DX: C50.911 Malignant neoplasm of unspecified site of right female breast (principal); Z17.0 Estrogen receptor positive status [ER+]; Z79.810 Long term (current) use of selective estrogen receptor modulators (SERMs); R53.83 Other fatigue; M25.512 Pain in left shoulder; I48.91 Unspecified atrial fibrillation; Z79.01 Long term (current) use of anticoagulants
CPT/HCPCS: 36415; 82310; 82565; 96372; 99202; 99212; 99214; J0897

== ENCOUNTER 2022-09-25 20:47 | Outpatient (CLI) | payer MEDICARE, SELFPAY | END 2022-09-25 20:48 | disposition home or self-care (01) | LOC: SLEEP 20:47 | PROVIDERS: PCP Family Medicine; Visit Provider Internal Medicine | DX: G47.33 Obstructive sleep apnea (adult) (pediatric) (principal) | CPT/HCPCS: 95810 ==

== ENCOUNTER 2023-02-22 10:00 | Outpatient (RCR) | payer MEDICARE, SELFPAY | END 2023-06-22 23:59 | disposition home or self-care (01) | PROVIDERS: PCP Family Medicine; Visit Provider Family Medicine | DX: M47.816 Spondylosis without myelopathy or radiculopathy, lumbar region (principal); M51.36 Other intervertebral disc degeneration, lumbar region; M54.50 Low back pain, unspecified; R26.2 Difficulty in walking, not elsewhere classified; Z51.89 Encounter for other specified aftercare | CPT/HCPCS: 97110; 97161 ==

== ENCOUNTER 2023-02-24 10:00 | Outpatient (RCR) | payer MEDICARE, SELFPAY ==
--- NOTE | 2022-11-16 13:37 | URNOTE ---
Per Karen at [facility], prior auth is not required for Prolia ([id number]). Ref #[id number]
[2022-11-18 08:52] VITALS: BP 123/82; PULSE 78; RESP 18; TEMP 36.7; O2SAT 93
[2022-11-18 09:02] LABS: Estimated Glomerular Filt Rate 59 ml/min
[2022-11-18 09:03] LABS: Calcium* 8.6 mg/dL (8.4-10.6)
[2022-11-18] MEDS: DENOSUMAB 60 MG/ML SYRINGE SUBCUT (09:17)
== END 2023-04-26 23:59 | disposition home or self-care (01) ==
LOC: CCIC 10:00
PROVIDERS: Internal Medicine Hematology & Oncology; PCP Family Medicine; Visit Provider Physician Assistant
DX: C50.911 Malignant neoplasm of unspecified site of right female breast (principal); Z17.0 Estrogen receptor positive status [ER+]; Z90.13 Acquired absence of bilateral breasts and nipples; Z79.810 Long term (current) use of selective estrogen receptor modulators (SERMs); M81.0 Age-related osteoporosis without current pathological fracture; I48.91 Unspecified atrial fibrillation; Z86.73 Personal history of transient ischemic attack (TIA), and cerebral infarction without residual deficits
CPT/HCPCS: 36415; 82310; 82565; 96372; 99212; 99214; 99215; J0897

== ENCOUNTER 2023-06-24 06:56 | Outpatient (CLI) | payer MEDICARE, SELFPAY ==
--- OUTSIDE RECORDS SUMMARY | 2023-06-24 06:58 | XMS_ITS | Continuity of Care Document ---
Author Name Unknown Organization [facility] Address [address] [place] [address] Phone Care Team Providers Care Rn Psych Name Role Phone Katerine ABRAMS MD, Miller Unavailable Unavailable Advance Directives Directive Yes / No Effective Date File Name No Information Encounters Encounter Description Practice Location Reason(s) For Visit Diagnoses Date Provider Providers Copied on Encounter [facility], [address] [facility] [address], [place], [place], [id number], [place] tel:[phone] No Information Apr-200 9 Katerine Bhatt. [address], [place], [address], . tel:[phone] Referring Provider: Miller Donald, [address] [place], [place], [facility]. tel:[phone] Family History Family Member Type Diagnosis Age At Onset No Information Payers Payer name Insurance type Covered republican ID Authoriza tirafa(s) [employer] [facility] CI [id number] Social History Type Description Quantity Date Captured Comments Sex Female Smoking Status No Information Chief Complaint And Reason For Visit No Information Reason For Referral Reason For Referral No Information History Of Present Illness Encounter Date Complaint History Of Prese nt Illness No Information Functional Status Date Functional Assessmen t No Information Instructions Date Instruction Additional Infor mation No Information Assessments Type Assessment Date No Information Patient Care Teams Name Effective Dates (start - stop) Status Members No Information
--- OUTSIDE RECORDS SUMMARY | 2023-06-24 06:58 | XMS_ITS | Continuity of Care Document ---
Author Name Unknown Organization [facility] Address [address] [place] [address] [address] [place] [address] Phone Care Team Providers Care Tourist Agent Name Role Phone No Information Unavailable Unavailable Procedures Procedure Date Office consultation, moderate 0 X-ray exam lwr spine, min 4 views Advance Directives Directive Yes / No Effective Date File Name No Information Encounters Encounter Description Practice Location Reason(s) For Visit Diagnoses Date Provider Providers Copied on Encounter [facility], [address] [place] [address], [address], tel:[phone] No Information 8-201 0 No Information Office consultation, moderate [facility], [address] [place] [address], [address], tel:[phone] [facility] No Information 0-201 0 Cody Hinojosa. [facility], [address], [address], [id number], . tel:[phone] Referring Provider: Micaela Ross, [facility] [address], [facility] [address], [place], [address] . tel:[phone] Family History Family Member Type Diagnosis Age At Onset No Information Payers Payer name Insurance type Covered green party ID Authoriza tion(s) No Information Social History Type Description Quantity Date Captured [...]
--- OUTSIDE RECORDS SUMMARY | 2023-06-24 06:58 | XMS_ITS | Continuity of Care Document ---
Author Name Unknown Organization [facility] Address [address] [address] [place] [address] Phone Care Team Providers Care Frit Coater Name Role Phone Eric Jacob MD Unavailable Unavailable Allergies, Adverse Reactions, Alerts Substance Reaction Status Criticality No Known Allergies Active No Inform ation Medications Medication Instructions Dosage Effective Dates (start - stop) Status Comments Coreg 3.125 mg tablet take 1 tablet by oral route 2 times every day with food 3.125 MG - Active Aspir-81 81 mg tablet,delayed release take 1 tablet by oral route every day - Active losartan 25 mg tablet take 1 tablet by ORAL route every day 25 MG - Active Lasix 20 mg tablet take 1 tablet by ORAL route every day as needed 20 MG - Active Prilosec OTC 20 mg tablet,delayed release take 1 Tablet by Oral route every day as needed 1 Tablet - No Longer Active Procedures Procedure Date Offic/outpt E&m New Mod-hi Subsqt Hosp-da E&m Minr Compl 9 Init Inpt Cons New/est Mod-hi 9 [facility]; W/bx 1/mx [facility] End[facility]; Dx W/wo Collec Specm 09 Ugi Endo; W/remov Fb Offic Cons New/estab Minor 15 8 U[facility] Endo; W/remov Fb EGD W/eso EUS [facility] Endo; W/remov Fb Advance Directives Directive Yes / No Effective Date File Name No Information Encounters Encounter Description Practice Location Reason(s) For Visit Diagnoses Date Provider Providers Copied on Encounter [facility], [address] [address], [place], [place], [id number], [place] tel:[phone] [facility] No Information Cecil Reyes. [address] [facility], [facility] [address], [place], [place], [id number], [place]. tel:[phone] Offic/outpt E&m New Mod-[facility], [address] [address], [place], [place], [id number], [place] tel:[phone] [facility] GI Symptoms or Concerns (chief complaint) DyspepsiaWeight lossNauseaDietar y counseling and surveillance Cecil Reyes. [address] [place] [address], [facility] [address], [place], [place], [id number], [place]. tel:[phone] Referring Provider: Mayur Foster MD W, [address] [place] [address], [place], [address]. tel:[phone] Subsqt Hosp-da E&m Minr Compl [facility], [address] [address], [place], [id number], [place] tel:[phone] [facility] No Information No Information Referring Provider: Sudarshan Adams MD, [address] [place] [address], [place], [address] . tel:[phone] Init Inpt Cons New/est Mod-hi [facility], [address] [address], [place], [id number], [place] tel:[phone] [facility] No Information Volodymyr Call. [facility], [facility] [address], [place], [place], [id number], [place]. tel:[phone] Referring Provider: Sudarshan Adams MD, [address] [place] [address], [place], [address] . tel:[phone] [facility], [address] [address], [place], [id number], [place] tel:[phone] [facility] No Information [address] [facility], [facility] [address], [place], [place], [id number], [place]. tel:[phone] [facility], [address] [address], [place], [id number], [place] tel:[phone] [facility] No Information 8200 8 No Information Offic Cons New/estab Minor 15 [facility], [address] [address], [place], [id number], [place] tel:[phone] [facility] No Information [address] [facility], [facility] [address], [place], [place], [id number], [place]. tel:[phone] Referring Provider: Leonides Bond, [address], [place], [address]. tel:[phone] [facility], [address] [address], [place], [id number], [place] tel:[phone] [facility] No Information 7 Link MD Young. [address] [facility], [address], [place], [place], [id number], [place]. tel:[phone] [facility], [address] [address], [place], [id number], [place] tel:[phone] [facility] No Information 7 No Information Referring Provider: Leonides Bond, [address], [place], [address]. tel:[phone] Family History Family Member Type Diagnosis Age At Onset Sister Problem (finding) Alive and well Father Problem (finding) Brother Problem (finding) Alive and well Daughter Problem (finding) Irritable bowel disease Mother Problem (finding) malignant neoplasm of c ervix uteri Immunizations Vaccine Date Status Comments Influenza, injectable, quadr ivalent, preservative free, 3 yrs or older administered Source : Other Provider Pneumococcal conjugate PCV 13 administere d Source: Other Provider Pneumo (2 yrs or older)(PPV) administered Source: Other Provider Payers Payer name Insurance type Covered green party ID Giacomo rendon(s) Blue Cross [place] [employer] BL [id number] Social History Type Description Quantity Date Captured Comments Alcohol Use Details Unknown Caffeine Use Details Unknown Tobacco Use Status No Information Smoking Status No Information Sex Female Chief Complaint And Reason For Visit No Information Reason For Referral Reason For Referral No Information Plan Of Treatment Date Type Action Status Goal Lifestyle education regardin g diet completed History Of Present Illness Encounter Date Complaint History Of Prese nt Illness GI Symptoms or Concerns This is a 67-year-old female who we are asked to see by Dr. Foster for postprandial abdominal pain, nausea. Apparently, the patient was also discussed with Dr. Souza, and the patient was referred here. She states over the last five to six weeks whenever she eats, she will get abdominal discomfort that lasts for two to three hours. She feels full. Discomfort she feels is in the upper epigastric area as a pressure that is constant. She will belch a lot. She does have a early satiety. She has nausea, but no vomiting.She has a history of VBG with a gastric band placed in 1997. This was removed on 10/22/2015. After that was done, she did gain about 15 pounds. More recently over the last five or six weeks with her not feeling well, she has lost about 25 pounds. Over the last two months, she has had her knee replaced and has had some pain associated with that. She has been on aspirin. In addition to the 81 mg aspirin that she takes every day, she has been taking 625 mg of aspir Functional Status Date Functional Assessmen t No Information Instructions Date Instruction Additional Infor [place] We could start by ch ecking abdominal x-ray. We should also start the patient on a PPI to see if this helps improve her symptoms. If the x-ray is nondiagnostic and the PPI is not helping, she should call and let me know that and then we will set up an upper endoscopy to help investigate her symptoms. At some point in the near future, she should have the followup colonoscopy done, I do not think that is currently urgent. Related to Dyspepsia Lifestyle education regarding di et Related to Dietary counseling and surveillance Xray Abdomen Complete Assessments Type Assessment Date No Information Patient Care Teams Name Effective Dates (start - stop) Status Members No Information
== END 2023-06-24 06:57 | disposition home or self-care (01) ==
LOC: INJ CL 06:56
PROVIDERS: PCP Family Medicine; Visit Provider Family Medicine
DX: M54.16 Radiculopathy, lumbar region (principal); M51.36 Other intervertebral disc degeneration, lumbar region
CPT/HCPCS: 62323; J0702; Q9966

== ENCOUNTER 2023-06-29 14:13 | Outpatient (CLI) | payer MEDICARE, SELFPAY ==
--- OUTSIDE RECORDS SUMMARY | 2023-06-29 14:17 | XMS_ITS | Continuity of Care Document ---
Author Name Unknown Organization [facility] Address [address] [place] [address] [address] [place] [address] Phone Care Team Providers Care Photovoltaic Panel Installer Name Role Phone No Information Unavailable Unavailable Procedures Procedure Date Office consultation, moderate 0 X-ray exam lwr spine, min 4 views Advance Directives Directive Yes / No Effective Date File Name No Information Encounters Encounter Description Practice Location Reason(s) For Visit Diagnoses Date Provider Providers Copied on Encounter [facility], [address] [place] [address], [address], tel:[phone] No Information 8-201 0 No Information Office consultation, moderate [facility], [address] [place] [address], [address], tel:[phone] [facility] No Information 0-201 0 Cody Hinojosa. [facility], [address], [address], [id number], . tel:[phone] Referring Provider: Micaela Ross, [facility] [address], [facility] [address], [place], [address] . tel:[phone] Family History Family Member Type Diagnosis Age At Onset No Information Payers Payer name Insurance type Covered republican ID Authoriza tion(s) No Information Social History [...]
--- NOTE | 2023-06-29 14:30 | CRLHL7_ITS ---
For Patients: As a result of the Century Cures Act, medical imaging exams and procedure reports are released immediately into your electronic medical record. You may view this report before your referring provider. If you have questions, please contact your health care provider. DXA BONE MINERAL DENSITY STUDY Current height (in): 67.0. Weight (lb): 225.0. Menopause age: 49. Ethnicity: White. Reason for exam: Monitor on aromatase inhibitor. 1. Have you had a previous hip or vertebral fracture? Yes. 2. Have you had any fractures during your adult life which did not result from significant trauma (e.g., auto accident)? Yes. 3. Did either of your parents have a hip fracture? No. 4. Do you smoke? No. 5. Have you ever taken Glucocorticoids? No. 6. Do you have rheumatoid arthritis? No. 7. Do you have secondary osteoporosis? No. 8. Do you drink 3 or more alcoholic drinks per day? No. 9. Are you being treated for osteoporosis? No. 10. Have you ever taken any of the following medications: Actonel, Evista, Fosamax, Miacalcin, Reclast, Boniva, Forteo, HRT (i.e. estrogen/hormone therapy), Protelos, Prolia, Vitamin D, Calcium, other ??? please specify. ANSWER: Yes, HRT, Prolia, calcium, Tamoxifen. 11. Do you have any of the following medical conditions: Anorexia or bulimia, asthma or emphysema, end stage renal disease, hyperparathyroidism, any seizure disorders, cancer, inflammatory bowel diseases, hysterectomy, other ??? please specify. ANSWER: Yes, cancer, breast cancer, hysterectomy. 12. What was your maximum height (inches)? 68. 13. Do you perform weight bearing exercise regularly? No. 14. Do you regularly consume dairy products? Yes. 15. Do you drink caffeinated beverages? Yes. 16. At what age did your period start? 13. 17. Are you premenopausal? No. 18. How many full term pregnancies have you had? 2. 19. Have you ever missed your period for more than 6 months in a row (not including or menopause)? No. TECHNIQUE: Bone mineral density study was performed using the [employer]. FINDINGS: The results of the study expressed as bone mineral density (BMD) are as follows: Lumbar spine L3-L4: BMD: 0.807 g/cm2. T-score: -2.7. Z-score: -0.2 Neck Left: BMD: 0.603 g/cm2. T-score: -2.2. Z-score: -0.2. Right: BMD: 0.591 g/cm2. T-score: -2.3. Z-score: -0.3. Total Left: BMD: 0.745 g/cm2. T-score: -1.6. Z-score: 0.1. Right: BMD: 0.766 g/cm2. T-score: -1.4. Z-score: 0.3. IMPRESSION: Osteoporosis. *Comparison exams done prior to 12/2019 were performed on different unit, [employer]. COMPARISON: Compared with scan of 06/11/2021, the bone mineral density has increased by 5.0 percent at the spine and increased by 5.9 percent at the hip. Mike Aguayo M.D. Diagnostic Radiologist [email or web address] Transcribed: 9:26 am DW/Dictated by: Mike Aguayo MD @ 07/04/2023 6:37:00 AM (Electronically Signed)
== END 2023-06-29 14:14 | disposition home or self-care (01) ==
LOC: RAD 14:14
PROVIDERS: PCP Family Medicine; Visit Provider Physician Assistant
DX: M81.0 Age-related osteoporosis without current pathological fracture (principal); Z79.811 Long term (current) use of aromatase inhibitors
CPT/HCPCS: 77080

== ENCOUNTER 2023-11-14 13:00 | Outpatient (RCR) | payer MEDICARE, SELFPAY ==
[2023-05-18 08:31] LABS: Creatinine* 1.1 mg/dL (0.5-1.5); Estimated Glomerular Filt Rate 53 ml/min
[2023-05-18 08:32] LABS: Calcium* 8.9 mg/dL (8.4-10.6)
[2023-05-18 08:49] VITALS: BP 117/79; PULSE 78; RESP 16; TEMP 36.6; O2SAT 94
[2023-05-18] MEDS: DENOSUMAB 60 MG/ML SYRINGE SUBCUT (08:49)
--- NOTE | 2023-07-01 11:40 | URNOTE ---
Prior auth obtained for Denosumab ([id number]). 06/29/2023-06/27/2024 Ref #[id number]
--- NOTE | 2023-07-08 11:44 | ONC.NURNOTE ---
Dexa scan reviewed by Tati Sierra PA-C. Per Tati, Dexa with osteoporosis, improved from 2020. No change in plan. Pt notified, verbalized understanding of plan of care.
== END 2023-11-14 23:59 | disposition home or self-care (01) ==
LOC: CCIC 13:00
PROVIDERS: Internal Medicine Hematology & Oncology; PCP Family Medicine; Referring Provider Family Medicine; Visit Provider Physician Assistant
DX: C50.911 Malignant neoplasm of unspecified site of right female breast (principal); Z17.0 Estrogen receptor positive status [ER+]
CPT/HCPCS: 36415; 82310; 82565; 96372; 99214; G0463; J0897

== ENCOUNTER 2023-12-30 08:00 | Outpatient (RCR) | payer MEDICARE, SELFPAY | END 2024-04-13 14:10 | disposition home or self-care (01) | PROVIDERS: PCP Family Medicine; Visit Provider Family Medicine | DX: M54.50 Low back pain, unspecified (principal); M48.062 Spinal stenosis, lumbar region with neurogenic claudication; Z74.09 Other reduced mobility; R29.3 Abnormal posture; R29.898 Other symptoms and signs involving the musculoskeletal system; Z51.89 Encounter for other specified aftercare | CPT/HCPCS: 97110; 97140; 97162; 97530 ==

== ENCOUNTER 2024-02-20 08:30 | Outpatient (RCR) | payer MEDICARE, SELFPAY ==
[2023-11-17 08:58] LABS: Creatinine* 0.9 mg/dL (0.5-1.5); Estimated Glomerular Filt Rate 67 ml/min
[2023-11-17 08:59] LABS: Calcium* 8.9 mg/dL (8.4-10.6)
[2023-11-17] MEDS: DENOSUMAB 60 MG/ML SYRINGE SUBCUT (09:32)
[2024-02-20 09:31] LABS: Basophils Absolute Auto 0.07 K/uL (0.00-0.30); Basophils Percent Auto 1.4 % (0.0-3.0); Eosinophils Percent Auto 10.3 % (0.0-7.0); Hematocrit 38.8 % (33.0-51.0); Hemoglobin* 12.4 gm/dL (12.0-16.0); Immature Granulocytes Abs Auto 0.01 K/uL (0.00-0.30); Immature Granulocytes Pct Auto 0.2 %; Lymphocytes Absolute Auto 1.64 K/uL (0.90-2.90); Lymphocytes Percent Auto 33.9 % (20-44); Mean Corpuscular HGB Conc 32 gm/dL (32-36); Mean Corpuscular Hemoglobin 30 pg (26-34); Mean Corpuscular Volume 93 fL (80-100); Monocytes Percent Auto 8.9 % (0.0-11.0); Neutrophils Absolute Auto 2.19 K/uL (1.7-7.0); Neutrophils Percent Auto 45.3 % (42.0-72.0); Platelet Count* 220 K/uL (140-440); RDW Coefficient of Variation % 14.4 % (11.5-15.5); Red Blood Count 4.16 m/uL (4.00-5.20); White Blood Count* 4.84 K/uL (4.50-11.00)
[2024-02-20 09:34] LABS: Slide Review Reflex No
[2024-02-20 09:41] LABS: Albumin* 3.9 g/dL (3.3-5.0); Chloride* 109 mmol/L (96-114)
[2024-02-20 09:42] LABS: Potassium* 4.2 mmol/L (3.6-5.1); Sodium* 141 mmol/L (135-149)
[2024-02-20 09:44] LABS: Alkaline Phosphatase* 86 U/L (40-150); Anion Gap 3 mEq/L (7-15); Aspartate Amino Transferase* 56 U/L (12-35); Bilirubin Total* 0.6 mg/dL (0.1-1.5); Blood Urea Nitrogen* 17 mg/dL (7-30); Carbon Dioxide* 29 mmol/L (20-32); Estimated Glomerular Filt Rate 59 ml/min; Total Protein* 6.3 g/dL (6.0-8.3)
[2024-02-20 09:45] LABS: Alanine Aminotransferase* 51 U/L (4-35); Calcium* 9.3 mg/dL (8.4-10.6); Glucose* 121 mg/dL (60-115)
== END 2024-05-15 23:59 | disposition home or self-care (01) ==
LOC: CCIC 08:30
PROVIDERS: Physician Assistant; PCP Family Medicine; Referring Provider Family Medicine; Visit Provider Internal Medicine Hematology & Oncology
DX: C50.911 Malignant neoplasm of unspecified site of right female breast (principal); Z17.0 Estrogen receptor positive status [ER+]; R42 Dizziness and giddiness; M81.0 Age-related osteoporosis without current pathological fracture; Z51.81 Encounter for therapeutic drug level monitoring; Z79.810 Long term (current) use of selective estrogen receptor modulators (SERMs); I48.91 Unspecified atrial fibrillation; Z86.73 Personal history of transient ischemic attack (TIA), and cerebral infarction without residual deficits; R51.9 Headache, unspecified; Z90.13 Acquired absence of bilateral breasts and nipples; Z79.01 Long term (current) use of anticoagulants
CPT/HCPCS: 36415; 80053; 82310; 82565; 85025; 96372; 99215; G0463; J0897

== ENCOUNTER 2024-02-29 08:17 | Outpatient (CLI) | payer MEDICARE, SELFPAY ==
--- OUTSIDE RECORDS SUMMARY | 2024-02-29 08:19 | XMS_ITS | Clinical Summary ---
Author Organization [facility] Address [address] [place] [address] Care Team Providers Care Autocad Designer Name Role Phone Mayur Foster Primary Care Provider Unavailabl e Allergies Active Allergy Reactions Criticality Noted Date Comments No Known Drug Allergy 12/07/2006 Medications Medication Sig Dispensed Refills Start Date End Date Status carvedilol (COREG) 3.125 MG tablet Take 3.125 mg by mouth 2 times daily (with meals) Active furosemide (LASIX) 20 MG tablet Take 20 mg by mouth daily as needed (swelling) Active cholecalciferol (VITAMIN D3) 125 mcg (5000 units) capsule Take 125 mcg by mouth every other day Active Zinc Sulfate 220 (50 Zn) MG TABS Take 110 mg by mouth every 3 days Active montelukast (SINGULAIR) 10 MG tablet Take 10 mg by mouth daily Active warfarin ANTICOAGULANT (COUMADIN) 5 MG tablet Take 7.5 mg by mouth daily Active dexamethasone (DECADRON) 4 MG tablet Take 16 mg by mouth daily as needed Takes for 3 days of chemo Active prochlorperazine (COMPAZINE) 10 MG tablet Take 10 mg by mouth every 6 hours as needed for nausea or vomiting Active ondansetron (ZOFRAN) 4 MG tablet Take 4 mg by mouth every 8 hours as needed for nausea Active LORazepam (ATIVAN) 0.5 MG tablet Take 0.5 mg by mouth every 6 hours as needed for anxiety, nausea or vomiting Active diclofenac (VOLTAREN) 1 % topical gelIndications:Closed fracture of multiple ribs of right side, initial encounter Apply 4 g topically 4 times daily 5 g 1 03/17/2021 Active hydrOXYzine (ATARAX) 25 MG tabletIndications:Sheba sed fracture of multiple ribs of right side, initial encounter Take 1-2 tablets (25-50 mg) by mouth every 6 hours as needed for other (adjuvant pain) 30 tablet 03/17/2021 Active Lidocaine (LIDOCARE) 4 % PatchIndications:Clos ed fracture of multiple ribs of right side, initial encounter Place 1 patch onto the skin every 24 hours To prevent lidocaine toxicity, patient should be patch free for 12 hrs daily. 10 patch 1 03/17/2021 Active oxyCODONE (ROXICODONE) 5 MG tabletIndications:Sheba sed fracture of multiple ribs of right side, initial encounter Take 1 tablet (5 mg) by mouth every 6 hours as needed for severe pain 12 tablet 03/17/2021 Active methocarbamol (ROBAXIN) 500 MG tabletIndications:Com pression fracture of L1 vertebra with routine healing, subsequent encounter Take 1 tablet (500 mg) by mouth 4 times daily as needed for muscle spasms 20 tablet 04/28/2021 Active gabapentin (NEURONTIN) 300 MG capsule Take 300 mg by mouth At Bedtime Active Active Problems Problem Noted Date Diagnosed Date Facet arthropathy, lumbosacral 08/11/2021 Compression fracture of L1 v ertebra with routine healing, subsequent encounter 04/30/2021 Rib fractures 03/15/2021 Knee pain 12/05/2014 HYPERLIPIDEMIA LDL GOAL <160 05/31/2010 DDD (degenerative disc disease), lumbosacral Disorder of bone and cartilage 08/09/2006 Overview: Problem list name updated by automated process. Provider to review Diaphragmatic hernia 08/09/2006 Overview: Problem list name updated by automated process. Provider to review s/p Gastric Bypass 08/09/2006 Overview: 2002 Hyperlipidemia 08/09/2006 Overview: Problem list name updated by automated process. Provider to review CARDIAC DYSRHYTHMIA - Pacemaker 08/03/2006 Overview: Sick Sinus Syndrome Immunizations Name Administration Dates Next Due Influenza (IIV3) PF 05/21/2010 TD,PF 7+ (Tenivac) 12/18/2002 Family History Medical History Relation Comments Family History Negative Brother 1 prostate ca Family History Negative Brother 2 Cancer Father prostate ca, ali ve 89 in 2 weeks Cancer Mother at 51, uter ine ca Hypertension Mother Family History Negative Sister 1 Diabetes Sister 2 Relation Status Comments Brother 1 Brother 2 Father Mother Sister 1 Sister 2 Social History Tobacco Use Types Packs/Day Years Used Date Smoking Tobacco: Never Smokeless Tobacco: Never Alcohol Use Standard Drinks/Week Comments Yes 0 (1 standard drink = 0.6 oz pur e alcohol) casual- 2 drinks per year PHQ-2 Answer Date Recorded PHQ-2 Score 0 01/12/2022 Adolescent Education Answer Date Record ed Getting School Help Needed Not on file 04/24 Sex and Gender Information Value Date Recorded Sex Assigned at Not on file Gender Identity Not on file Sexual Orientation Not on file Last Filed Vital Signs Vital Sign Reading Time Taken Comments Blood Pressure 165/90 05/03/2022 1:36 PM CDT Pulse 77 05/03/2022 1:36 PM CDT Temperature 36.1 ??C (96.9 ??F) 03/17/2021 7:39 AM CD T Respiratory Rate 16 03/09/2022 7:22 AM CDT Oxygen Saturation 93% 05/03/2022 1:36 PM CDT Inhaled Oxygen Concentration - - Weight 97.5 kg (215 lb) 05/03/2022 1:36 PM CDT Height 170.2 cm (5' 7) 05/03/2022 1:36 PM CDT Body Mass Index 33.67 05/03/2022 1:36 PM CDT Plan of Treatment Health Maintenance Due Date Last Done Comments ADVANCE CARE PLANNING 1950 ANNUAL REVIEW OF HM ORDERS 1950 CT COLONOGRAPHY 1950 FLEX SIG 1950 sDNA (Cologuard) 1950 DEXA 1967 HEPATITIS C SCREENING 1967 RSV VACCINE ( & 60+) (1 - 1-dose 60+ series) 2009 FIT 07/15/2010 07/15/2009, 08/09/2006 MAMMO SCREENING 07/22/2011 07/22/2010, 12/31, 08/31/2004 LIPID 05/02/2012 05/02/2007 FALL RISK ASSESSMENT 2014 COLONOSCOPY 02/08/2017 02/08/2007 COLORECTAL CANCER SCREENING 02/08/2017 MEDICARE ANNUAL WELLNESS VISIT 07/22/2022 07/22/2021, 06/17/2020 DTAP/TDAP/TD IMMUNIZATION (2 - Td or Tdap) 02/06/2023 02/06/2013, 12/18/2002 COVID-19 Vaccine (3 - season) 2023 07/28/2021, 03/13/2021 PHQ-2 (once per calendar year) 2023 01/12/2022 GLUCOSE 03/15/2024 03/15/2021, 05/01, 02/27/2011, Additional history exists INFLUENZA VACCINE (#1) 2024 , 06/17/2020, 06/04/2019, Additional history exists Pneumococcal Vaccine: 65+ Years Completed 06/17/2015, 05/16/2014 ZOSTER IMMUNIZATION Completed 12/02/2022, 08/23/2022, 03/07/2013 HPV IMMUNIZATION Aged Out No longer e ligible based on patient's age to complete this topic IPV IMMUNIZATION Aged Out No longer e ligible based on patient's age to complete this topic MENINGITIS IMMUNIZATION Aged Out No l onger eligible based on patient's age to complete this topic RSV MONOCLONAL ANTIBODY Aged Out No l onger eligible based on patient's age to complete this topic Procedures Procedure Name Priority Date/Time Associated Diagnosis Comments BASIC METABOLIC PANEL STAT 03/15/2021 7:46 PM CDT MA SCREENING DIGITAL BILATERAL Routine 07/22/2010 9:00 AM APPLIANCE SERVICER Other screening mammogram OCCULT BLOOD STOOL STAT 07/15/2009 6: 55 AM APPLIANCE SERVICER CL AFF A.M.A. LIPID PANEL Routine 05/02/2007 11:16 AM CDT Screening-Lipoid Disorders COLONOSCOPY Routine 02/08/2007 10:00 AM CDT from Last 3 Months or Most Recently Relevant to Health Maintenance Results * (ABNORMAL) Basic metabolic panel (03/15/2021 7:46 PM CDT) Sodium 139 133 - 144 mmol/L 03/15/2021 8:31 PM CDT LABORATORY Potassium 3.7 3.4 - 5.3 mmol/L 03/15/2021 8:31 PM CDT LABORATORY Chloride 107 94 - 109 mmol/L 03/15/2021 8:31 PM CDT LABORATORY Carbon Dioxide (CO2) 28 20 - 32 mmol/L 03/15/2021 8:31 PM CDT LABORATORY Anion Gap 4 3 - 14 mmol/L 03/15/2021 8:31 PM CDT LABORATORY Urea Nitrogen 13 7 - 30 mg/dL 03/15/2021 8:31 PM CDT LABORATORY Creatinine 0.92 0.52 - 1.04 mg/dL 03/15/2021 8:31 PM CDT LABORATORY Calcium 8.6 8.5 - 10.1 mg/dL 03/15/2021 8:31 PM CDT LABORATORY Glucose 148(H) 70 - 99 mg/dL 03/15/2021 8:31 PM CDT LABORATORY GFR Estimate 62 >60 mL/min/1.7 3m2 03/15/2021 8:31 PM CDT LABORATORY Comment:As of February 08, 2021, eGFR is calculated by the CKD-EPI creatinine equation, without race adjustment. eGFR can be influenced by muscle mass, exercise, and diet. The reported eGFR is an estimation only and is only applicable if the renal function is stable. Blood VENOUS LINE / Unknown Venipuncture / Unknown 03/15/2021 7:46 PM CDT 03/15/2021 7:58 PM CDT Liz Lopez MD LAB - BLOOD ORDERABL ES LABORATORY [facility] [address] Lab (1st floor, no room number) [place] [address], [facility] [phone] * Mammo Screening digital (bilat) (07/22/2010 9:00 AM APPLIANCE SERVICER) Anatomical Region Laterality Modality Breast Bilateral Other 07/22/2010 9:00 AM APPLIANCE SERVICER Impressions 07/22/2010 9:57 AM APPLIANCE SERVICER SCREENING MAMMOGRAPHY, BILATERAL, DIGITAL, w/CAD ??July ??2009. HISTORY/COMPARISON: 01/27/2007 BREAST PARENCHYMAL PATTERN: ??Heterogeneously dense. FINDINGS: ??Negative. ?? IMPRESSION: ??BI-RADS 1, NEGATIVE. Liseth Holly MD IMG MAMMOGRAPHY ORDE AMADOR * (ABNORMAL) Occult blood stool (07/15/2009 6:55 AM APPLIANCE SERVICER) Occult Blood Positive(A ) NEG MISYS 07/15/2009 6:55 AM APPLIANCE SERVICER 07/15/2009 7:02 AM APPLIANCE SERVICER Anastasia Castaneda MD LAB - STOOLS ORD ERABLES MISYS * A.M.A. LIPID PANEL (05/02/2007 11:16 AM CDT) Cholesterol 170 0 - 200 mg/dL [facility] Comment: LDL Cholesterol is the primary guide to therapy: LDL-cholesterol goal in high risk patients is <100 mg/dL and in very high risk patients is <70 mg/dL. The NCEP recommends further evaluation of: patients with cholesterol <200 mg/dL if additional risk factors are present, cholesterol >240 mg/dL, triglycerides >150 mg/dL, or HDL <40 mg/dL. Triglycerides 133 0 - 150 mg/dL [facility] HDL Cholesterol 56 50 - 110 mg/dL [facility] LDL Cholesterol Calculated 87 0 - 129 mg/dL [facility] Comment: LDL Cholesterol is the primary guide to therapy: LDL-cholesterol goal in high risk patients is <100 mg/dL and in very high risk patients is <70 mg/dL. VLDL-Cholesterol 27 0 - 30 mg/dL [facility] Cholesterol/HDL Ratio 3.0 0.0 - 5.0 [facility] 05/02/2007 11:1 6 AM CDT 05/02/2007 11:18 AM CDT Peewee Headley MD LABORATORY [facility] * COLONOSCOPY (02/08/2007 10:00 AM CDT) COLONOSCOPY Endoscopy Patient Name: Fartun Farias ?Gender: F ? Procedure Date: 02/08/2007 10:00 AM ? Date of : 1950 ? Age: 56 ? Admit Type: Outpatient ? Attending MD: Triston Bryant ? Procedure: ?Colonoscopy Indications: ?Avg risk screening for malignant neoplasm in the colon Providers: ?Triston Bryant MD Referring MD: ?? Peewee Headley MD Medicines: ?Fentanyl 100 mcg IV, Midazolam 2 mg IV, Atropine 0.6 mg IV Complications: ??No immediate complications Procedure: ?- A History and Physical has been performed, and patient ?medication allergies have been reviewed. The patient The ?risks and benefits of the procedure and the sedation options ?and risks were discussed with the patient. All questions were ?answered and informed consent was obtained. Patient ?identification and proposed procedure were verified prior to ?the procedure by the physician in the procedure room. Mental ?Status Examination: normal. Respiratory Examination: clear to ?auscultation. CV Examination: normal. ASA Grade Assessment: ?P2 A patient with mild systemic disease. After reviewing the ?risks and benefits, the patient was deemed in satisfactory ?condition to undergo the procedure. The anesthesia plan was ?to use moderate sedation / analgesia (conscious sedation). ?Immediately prior to administration of medications, the ?patient was re-assessed for adequacy to receive sedatives. ?The heart rate, respiratory rate, oxygen saturations, blood ?pressure, adequacy of pulmonary ventilation, and response to ?care were monitored throughout the procedure. The physical ?status of the patient was re-assessed after the procedure. ?After obtaining informed consent, the colonoscope was passed ?under direct vision. Throughout the procedure, the patient's ?blood pressure, pulse, and oxygen saturations were monitored ?continuously. The [id number] was introduced through ?the anus and advanced to the ileum. The colonoscopy was ?accomplished without difficulty. The patient tolerated the ?procedure well. The quality of the prep was good. ? Findings: ? The digital rectal exam was normal. The rectum, sigmoid colon, ? descending colon, splenic flexure, transverse colon, hepatic flexure, ? ascending colon, cecum, ileocecal valve and ileum were normal. The ? retroflexed view of the anal verge was normal and showed no anal or ? rectal abnormalities. The terminal ileum was normal. ? Impression: ? - The rectum, sigmoid colon, descending colon, splenic ?flexure, transverse colon, hepatic flexure, ascending colon, ?cecum, ileocecal valve and terminal ileum are normal. ?- The terminal ileum is normal. Recommendation: - Discharge patient to home (ambulatory). ?- Collect hemoccults on three spontaneously passed stools ?annually. ?- Flexible Sigmoidoscopy in 3 years. ?- Return to primary care provider PRN. ? R Annette Sands Triston Bryant MD Signed Date: 02/08/2007 10:22 AM Number of Addenda: 0 I was physically present for the entire viewing portion of the exam. Note generated on 02/08/2007 10:02 AM RADIOLOGY RESULTS COLONOSCOPY RADIOLOG Y RESULTS 02/08/2007 10:0 0 AM CDT Jorge Headley MD PROCEDURES RADIOLOGY RESULTS from Last 3 Months or Most Recently Relevant to Health Maintenance Advance Directives For more information, please contact: [phone] * Full Code (Latest Code Status on File) Date Activated Date Inactivated Comments 03/15/2021 11:10 PM 03/17/2021 1:25 PM All basic a nd advanced life-sustaining interventions are performed as appropriate Question Answer Comments Code status determined by: Discussion with jose mckeon/ legal decision maker Care Teams Autocad Designer Relationship Specialty Start Date End Date Mayur Foster PCP - General 05/16/12
--- OUTSIDE RECORDS SUMMARY | 2024-02-29 08:19 | XMS_ITS | Continuity of Care Document ---
Author Organization [facility] Address [address] [place] [address] [address] [place] [address] Phone Care Team Providers Care Dormitory Supervisor Name Role Phone No Information Unavailable Unavailable Procedures Procedure Date Office consultation, moderate 0 X-ray exam lwr spine, min 4 views Advance Directives Directive Yes / No Effective Date File Name No Information Encounters Encounter Description Practice Location Reason(s) For Visit Diagnoses Date Provider Providers Copied on Encounter [facility], [address] [place] [address], [address], tel:[phone] No Information 8-201 0 No Information Office consultation, moderate [facility], [address] [place] [address] [address] [place], [address], tel:[phone] [facility] No Information 0-201 0 Cody Hinojosa. [facility] [place], [address], [address], [place], [place], [id number], . tel:[phone] Referring Provider: Micaela Ross, [facility] [address], [address], [place], [address] . tel:[phone] Family History Family Member Type Diagnosis Age At Onset No Information Payers Payer name Insurance type Covered democrat ID Authoriza tion(s) No Information Social History [...]
--- OUTSIDE RECORDS SUMMARY | 2024-02-29 08:19 | XMS_ITS | Referral Summary ---
Author Organization [facility] Address [address] [place] [id number] Care Team Providers Care Neonatal Critical Care Nurse Name Role Phone Mayur Foster Primary Care [...] (IIV3) PF 05/21/2010 TD,PF 7+ (Tenivac) 12/18/2002 Social History Tobacco Use Types Packs/Day Years [...] 05/03/2022 1:36 PM CDT Plan of Treatment Not on file Procedures Procedure Name Priority Date/Time Associated Diagnosis Comments BASIC METABOLIC PANEL STAT 03/15/2021 7:46 PM CDT MA SCREENING DIGITAL BILATERAL Routine 07/22/2010 9:00 AM SENIOR IOS DEVELOPER Other screening mammogram OCCULT BLOOD STOOL STAT 07/15/2009 6: 55 AM SENIOR IOS DEVELOPER CL AFF A.M.A. LIPID PANEL Routine 05/02/2007 11:16 AM CDT Screening-Lipoid Disorders COLONOSCOPY Routine 02/08/2007 10:00 AM CDT from Last 3 Months or Most Recently Relevant to Health Maintenance Results * (ABNORMAL) Basic metabolic panel (03/15/2021 7:46 PM CDT) Sodium 139 133 - 144 mmol/L 03/15/2021 8:31 PM CDT [facility] LAB[facility]AT[facility] Potassium 3.7 3.4 - 5.3 mmol/L [...] MD LAB - BLOOD ORDERABL ES LABORATORY [facility] Lab [address] Lab (1st floor, no room number) [place] [address], [facility] [phone] * Mammo Screening digital (bilat) (07/22/2010 9:00 AM SENIOR IOS DEVELOPER) Anatomical Region Laterality Modality Breast Bilateral Other 07/22/2010 9:00 AM SENIOR IOS DEVELOPER Impressions 07/22/2010 9:57 AM SENIOR IOS DEVELOPER SCREENING MAMMOGRAPHY, BILATERAL, DIGITAL, w/CAD ??July ??2009. HISTORY/COMPARISON: 01/27/2007 BREAST PARENCHYMAL PATTERN: ??Heterogeneously dense. FINDINGS: ??Negative. ?? IMPRESSION: ??BI-RADS 1, NEGATIVE. Liseth Holly MD IMG MAMMOGRAPHY MARU ALIYAALEISHA * (ABNORMAL) Occult blood stool (07/15/2009 6:55 AM SENIOR IOS DEVELOPER) Occult Blood Positive(A ) NEG MISYS 07/15/2009 6:55 AM SENIOR IOS DEVELOPER 07/15/2009 7:02 AM SENIOR IOS DEVELOPER Anastasia Castaneda MD LAB - STOOLS ORD ERABLES MISYS * A.M.A. LIPID PANEL (05/02/2007 11:16 AM CDT) Cholesterol 170 0 - 200 mg/dL [facility] Comment: LDL Cholesterol is the primary guide to therapy: LDL-cholesterol goal in high risk patients is <100 mg/dL and in very high risk patients is <70 mg/dL. The NCEP recommends further evaluation of: patients with cholesterol <200 mg/dL if additional risk factors are present, cholesterol >240 mg/dL, triglycerides >150 mg/dL, or HDL <40 mg/dL. Triglycerides 133 0 - 150 mg/dL [facility] HDL Cholesterol 56 50 - 110 mg/dL [facility] LDL Cholesterol Calculated 87 0 - 129 mg/dL [facility] Comment: LDL Cholesterol is the primary guide to therapy: LDL-cholesterol goal in high risk patients is <100 mg/dL and in very high risk patients is <70 mg/dL. VLDL-Cholesterol 27 0 - 30 mg/dL [facility] Cholesterol/HDL Ratio 3.0 0.0 - 5.0 [facility] 05/02/2007 11:1 6 AM CDT 05/02/2007 11:18 AM CDT Peewee Headley MD LABORATORY [facility] * COLONOSCOPY (02/08/2007 10:00 AM CDT) [...] and oxygen saturations were monitored ?continuously. The [id number] was introduced through ?the anus and advanced [...] Advance Directives For more information, please contact: [phone] * Full Code (Latest Code Status on File) Date Activated Date Inactivated Comments 03/15/2021 11:10 PM 03/17/2021 1:25 PM All basic a nd advanced life-sustaining interventions are performed as appropriate Question Answer Comments Code status determined by: Discussion with jose nt/ legal decision maker Care Teams Neonatal Critical Care Nurse Relationship Specialty Start Date End Date Mayur Foster PCP - General 05/16/12
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
--- OUTSIDE RECORDS SUMMARY | 2024-02-29 08:20 | XMS_ITS | Clinical Summary ---
Author Organization [employer] [facility] Address [place], [place] [address] Care Team Providers Care Sausage Cooker Name Role Phone Guera Dominique DO Primary Care Provider [phone] Allergies Active Allergy Reactions Criticality Noted Date Comments Lisinopril Cough 05/09/2014 Narcotic Antagonist Nausea Only 05/08/2014 Medications Medication Sig Dispensed Refills Start Date End Date Status ondansetron (ZOFRAN) 4 mg tabletIndication s:Closed fracture of distal end of left radius with routine healing, unspecified fracture morphology, subsequent encounter Take 1 Tablet (4 mg) by mouth every 8 hours if needed for Nausea/Vomiting. 0 1 Active tamoxifen (NOLVADEX) 20 mg tablet Take 1 Tablet by mouth once daily. 2 Active calcium carbonate (CALCIUM 600 ORAL) Take 1 Tablet by mouth 2 times daily. Active cholecalciferol (VITAMIN D3) 1,000 unit tablet Take 2,000 units by mouth two times daily. Active zinc sulfate 50 mg zinc (220 mg) capsule Take 220 mg by mouth once weekly. (on ) Active acetaminophen (TYLENOL) 325 mg tabletIndication s:Nephrolithiasi s Take 2 Tablets (650 mg) by mouth every 4 hours if needed for Pain (For mild pain.). Max acetaminophen dose: 4000mg in 24 hrs. 0 2 Active albuterol HFA (PRO-AIR; VENTOLIN; PROVENTIL) 90 mcg/actuation inhalerIndicatio ns:Bronchitis with bronchospasm Inhale 1-2 Puffs by mouth every 6 hours if needed for Shortness of Breath 2nd choice or Wheezing 1st choice. 17 g 3 Active albuterol (PROVENTIL) 0.083 % neb solutionIndicati ons:Chronic bronchitis, unspecified chronic bronchitis type (HC),Wheezing,SO B (shortness of breath) Inhale 3 mL (2.5 mg) via a nebulizer every 6 hours if needed for Cough 1st choice. 180 mL 3 Active NebulizerIndicat ions:Chronic bronchitis, unspecified chronic bronchitis type (HC),Wheezing,SO B (shortness of breath) Nebulizer, disposable neb kit x 4, reuseable neb kit x 1, mask x 1, filters x 1. Frequency of use: daily; Medication: albuterol Length of need: prn months 1 Each 3 Active fluticasone furoate-vilanter oL (Breo Ellipta) 100-25 mcg/dose inhalerIndicatio ns:Asthma, unspecified asthma severity, unspecified whether complicated, unspecified whether persistent Inhale 1 Puff by mouth once daily. 60 Each 11 3 Active CPAPIndications: JENNIFER (obstructive sleep apnea) CPAP machine for home use at pressure 4-15 cmw, nasal mask x1/3month with a nasal cushion x2/mo 1 Each 11 3 Active spironolactone (ALDACTONE) 25 mg tabletIndication s:Cerebrovascula r accident (CVA), unspecified mechanism (HC) Take 1 Tablet (25 mg) by mouth once daily. 90 Tablet 3 3 Active carvediloL (COREG) 3.125 mg tabletIndication s:Essential hypertension,PAF (paroxysmal atrial fibrillation) (HC) TAKE ONE TABLET BY MOUTH TWICE A DAY WITH MEALS 180 Tablet 2 4 Active aspirin 325 mg tablet reports taking 650 mg twice weekly for back pain 4 Active warfarin (COUMADIN) 5 mg tabletIndication s:PAF (paroxysmal atrial fibrillation) (HC),Anticoagula tion monitoring, INR range 2-3 Take by mouth 7.5 mg (5 mg x 1.5) every Mon, Wed, Fri; 5 mg (5 mg x 1) all other days in the evening OR as directed 4 Active methylPREDNISolo ne (Medrol, Nigel,) 4 mg tabletIndication s:Chronic right-sided low back pain without sciatica Take by mouth as instructed per packaging. 21 Tablet 4 024 Discontinued(*P atient states no longer taking) warfarin (COUMADIN) 5 mg tabletIndication s:PAF (paroxysmal atrial fibrillation) (HC),Anticoagula tion monitoring, INR range 2-3 Take by mouth 5 mg (5 mg x 1) every Sun, Kalee; 7.5 mg (5 mg x 1.5) all other days in the evening OR as directed 4 024 Discontinued warfarin (COUMADIN) 5 mg tabletIndication s:PAF (paroxysmal atrial fibrillation) (HC),Anticoagula tion monitoring, INR range 2-3 Take by mouth 5 mg (5 mg x 1) every Sun, Kalee; 7.5 mg (5 mg x 1.5) all other days in the evening OR as directed 111 Tablet 4 024 Discontinued(Ot her - add note to specify (E-cancel not sent)) Active Problems Problem Noted Date Diagnosed Date Chronic anticoagulation 08/02/2023 Chronic bronchitis, unspecified chronic bronchit is type 08/02/2023 Anticoagulation monitoring, INR range 2-3 2023 DDD (degenerative disc disease), lumbar 06/27/20 Overview: ~ June 2023: L4-L5 [place] epidural steroid injection by Dr. Goyal. 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 September 2020 Vitamin D deficiency 06/17/2020 Creatinine elevation 06/17/2020 Essential hypertension 07/26/2018 ACP (advance care planning) 07/18/2018 Overview: Patient has identified Health Care Agent(s): Yes Add Health Care Agents: Yes Health Care Agent(s): Primary Health Care Agent: Peter Farias Relationship: spouse Secondary Health Care Agent: Vanesa Farias Relationship: daughter Conservator: Relationship: Phone: Guardian: Relationship: Phone: Patient has Advance Care Plan Documents (Health Care Directive, POLST): Yes Advance Care Plan Documents: Health Care Directive (she was asked to provide a copy) Patient has identified Specific Treatment Preferences: Seasonal allergies 07/17/2018 PAF (paroxysmal atrial fibrillation) 07/14/2018 Cerebrovascular accident (CV A) due to embolism of right posterior cerebral artery 07/14/2018 Status post total right knee replacement 017 Ascending aortic aneurysm 02/21/2017 Overview: 3.8 cm on 02/11/2017 echo Repeat yearly Presence of permanent cardiac pacemaker 01/26/20 17 Sick sinus syndrome 01/25/2017 Status post total left knee replacement 06/02/20 16 Iron deficiency anemia 11/11/2015 s/p exploratory laparoscopy, removal of silastic VBG ring, extensive adhesiolysis, intra-op EGD 10/22/2015 Overview: Dr. Rolle Gastric band malfunction 10/21/2015 JENNIFER 08/22/2018 AHi- 6.3 09/25/2022 AHI- 11 016 Stress-induced cardiomyopathy 05/09/2014 Adenomatous colon polyp 12/18/2013 Overview: Colonoscopy 11/2013 polyps repeat in 5 years Colonoscopy 08/2019 polyps, repeat in 5 years Bronchospasm 11/28/2013 Primary osteoarthritis of both knees 11/14/2013 Gastritis 12/28/2011 Overview: EGD 11/2011 Reactive gastropathy Bradycardia 01/14/2011 Overview: S/p pacemaker 2003 Pure hypercholesterolemia 01/14/2011 Hiatal hernia 01/14/2011 Resolved Problems Problem Noted Date Diagnosed Date Resolved Date Anticoagulation monitoring, INR range 2-3 [Z79.01] 08/31/2018 04/20/2023 Anticoagulation monitoring, special range 04/20/2017 05/12/2017 Anticoagulation monitoring, special range 06/02/2016 06/09/2016 Anticoagulation monitoring, special range 05/31/2016 07/15/2016 Encounters Date Type Department Care Team Description 02/22/2024 11:00 AM CDT Orders Only [facility] [address] [place] [address] [facility] [facility] 02/22/2024 Anticoagulation (warfarin) [facility] [address] [place] [address] 1, [facility] Anticoagulation ( ) 02/22/2024 Travel 02/15/[address] [address] Josie Cortés, DO Results 02/15/2024 Anticoagulation (warfarin) [address] [address] 1, [facility] Anticoagulation 02/14/2024 3:15 PM CDT Orders Only [address] [address] Lab, [place] [facility] 02/13/2024 3:40 PM CDT Office Visit [address] [address] Josie Cortés, DO Headache (2 months. side and back of head. tylenol helps some) 02/13/2024 Travel 02/03/[address] [address] Guera Dominique, Refill Request (Warfarin) 01/30/2024 9:30 AM CDT Orders Only [address] [address] Lab[place] [facility] 01/30/2024 Anticoagulation (warfarin) [facility] [address] [place] [address] 1, [facility] Anticoagulation 01/30/[address] [address] Guera Dominique, DO Anticoagulation (INR questions) 01/30/2024 Travel 01/20/2024 1:50 PM CDT Office Visit [facility] [address] [place] [address] Erica Gillette PA Back Pain (Has arthritis in back-has been going to [facility]-woke up today with severe pain and wants some prednisone until she can get in for cortisone injection) 01/20/2024 1:30 PM CDT Orders Only [facility] [address] [place] [address] Lab[facility] [place] [facility] 01/20/2024 Anticoagulation (warfarin) [facility] [address] [place] [address] 1, [facility] Anticoagulation 01/20/2024 Travel 12/05/2023 11:45 AM CDT Orders Only [facility] [address] [place] [address] Lab[facility] [place] 12/05/2023 Anticoagulation (warfarin) [facility] [address] [place] [address] 1, [facility] Anticoagulation 12/05/2023 Travel from Last 3 Months Immunizations Name Administration Dates Next Due COVID-19 vaccine (Nuvotronics-Weatherista NTFluent Home 30mcg/0.3mL) ERICH GARCIA 07/28/2021 Influenza, High-dose Inactivated 05/20/2016,06/01,05/16/2014 Influenza, IIV3 (Age >=3 years) 05/21/2010 Influenza, IIV4 05/21/2010 Influenza, Inactivated AIIV4 (Age 65+ Years) Preserv Free 07/01/2023,07/22/2021,06/17/2020 Influenza, Inactivated IIV3 (Age 65+ Years) Preserv Free 06/04/2019,04/06/2018,06/20/2017 Pneumococcal Poly,23-Valent (Pneumovax) 05/16/20 14 Pneumococcal conj 13-Valent (Prevnar 13) 015 Td (Age >=7 Years) 12/18/2002 Td, Preservative Free (age >= 7 Years) 3 Tdap 08/04/2023,02/06/2013 Zoster (Shingrix-RZV, recombinant) 12/02/2022, Zoster (Zostavax-ZVL, live) 03/07/2013 Family History Medical History Relation Name Comments Cancer Brother 1 prostate, kidne y gall bladder(3 separate cancers) Good Health Brother 2 Other Father at 92 afte r leg fracture Heart Disease Mother at 51 due to valve dz Diabetes Sister 1 Good Health Sister 2 Anesthesia Problem No Family History Blood Disease No Family History Cancer-breast No Family History Relation Name Status Comments Brother 1 Brother 2 Father Mother Sister 1 Sister 2 Social History Tobacco Use Types Packs/Day Years Used Date Smoking Tobacco: Never Smokeless Tobacco: Never Tobacco Cessation:Counseling Given: Yes Alcohol Use Standard Drinks/Week Comments Yes 0 (1 standard drink = 0.6 oz pur e alcohol) PHQ-2 Answer Date Recorded PHQ-2 TOTAL SCORE 1 08/02/2023 Social Connections Answer Date Recorded Frequency of Communication with Friends and Fami ly 0 07/15/2023 Alcohol Use Answer Date Recorded How often do you have a drink containing alcohol ? 1 08/20/2022 How many drinks containing a lcohol do you have on a typical day when you are drinking? 0 08/20/2022 How often do you have five or more drinks on one occasion? 0 08/20/2022 Financial Resource Strain Answer Date R ecorded Difficulty of Paying Living Expenses 3 07/15/2023 Difficulty of Paying Living Expenses Not on file 07/15/2023 Food Insecurity Answer Date Recorded Worried About Running Out of Food in the Last Ye ar 1 07/15/2023 Transportation Needs Answer Date Record ed Lack of Transportation (Medical) 1 07/15/2023 Housing Stability Answer Date Recorded Unable to Pay for Housing in the Last Year 1 07/15/2023 Sex and Gender Information Value Date Recorded Sex Assigned at Not on file Gender Identity Not on file Sexual Orientation Not on file Obstetrics History Para Term AB IAB SAB Ectopic Multiple Livin g Live Births 2 2 2 2 Date Outcome GA Total Labor Labor/2nd/3rd Weight Sex Type Anes PTL Tammy A1 A5 Name Clin Term Term Last Filed Vital Signs Vital Sign Reading Time Taken Comments Blood Pressure 119/79 02/13/2024 3:38 PM CDT Pulse 79 02/13/2024 3:38 PM CDT Temperature 36.6 ??C (97.8 ??F) 08/25/2023 8:01 AM CS T Respiratory Rate 20 12/03/2022 2:09 PM CDT Oxygen Saturation 95% 01/20/2024 1:47 PM CDT Inhaled Oxygen Concentration - - Weight 98 kg (216 lb) 02/13/2024 3:38 PM CDT Height 168 cm (5' 6.14) 08/02/2023 8:48 AM DRESS OPERATOR Body Mass Index 34.71 08/02/2023 8:48 AM DRESS OPERATOR Plan of Treatment Upcoming Encounters Date Type Department Care Team (Late st Contact Info) Description 04/13/2024 1:30 PM CDT Office Visit [facility] [address] [place] [phone] Abdirashid Regalado MD [address] [facility] [address] [place], [place] [phone] 06/12/2024 10:00 AM DRESS OPERATOR Cardiac Device Check [facility] [address] [place] [phone] Health Maintenance Due Date Last Done Comments COVID-19 vaccine series ( season) 2023 07/28/2021, 03/13/2021 Influenza for age 65+ 04/01/2024 07/01/2023 , 07/22/2021, 06/17/2020, Additional history exists BMI (ht and wt on same day) for age 18+ 08/02/2024 08/02/2023, 12/03/2022, 10/07/2022, Additional history exists Depression screening for age 12+ 08/02/2024 08/02/2023, 08/02/2023, 08/02/2023, Additional history exists Medicare Wellness for age 65+ 08/02/2024, 08/20/2022, 07/22/2021, Additional history exists Colonoscopy through age 75 08/08/202408/08, 08/08/2019, 08/08/2019, Additional history exists Lipids for age 45-75 08/16/2028 08/16/2023, 06/17/2020, 08/13/2019, Additional history exists Tetanus booster 08/04/2033 08/04/2023, 07/0 04/2013, 12/18/2002, Additional history exists Pneumococcal series for age 65+ Completed 5, 05/16/2014 Hepatitis C screening for ag e 18-79 Completed 06/14/2020 (Completed [facility]) DEXA/DXA scan for age 65+ Completed 06/11/2021 Zoster (shingles) series for age 50+ Completed 12/02/2022, 08/23/2022, 03/07/2013 Tdap Completed 08/04/2023, 02/06/2013 Medical Devices Implanted Type Area Toll Test Worker Device Identifier Shelf Expiration Date Model / Serial / Lot Standard Pacemaker- 002 Implanted:2001 by Leonides Coffey MD (Quantity not on file) Standard Pacemaker GUIDANT [id number] / [id number] / Stent Uret [id number] Contour - [id number] Implanted:Qty: 1 on 03/21/2022 by Troy Quintanilla MD at [facility] Right: Ureter [facility] Urology [id number] 30 / / [id number] Stent Uret [id number] Contour - [id number] Implanted:Qty: 1 on 04/07/2022 by Troy Quintanilla MD at [facility] Right: Ureter [facility] Urology 07/09/2024 [id number] 30 / / [id number] Procedures Procedure Name Priority Date/Time Associated Diagnosis Comments INR,POCT Routine 02/22/2024 11:00 AM CDT PAF (paroxysmal atrial fibrillation) (HC) PLATELET ESTIMATE Routine 02/14/2024 3:0 0 PM CDT Headache in back of head RED CELL MORPHOLOGY Routine 02/14/2024 3 :00 PM CDT Headache in back of head BASIC METABOLIC PANEL Routine 02/14/2024 3:00 PM CDT Headache in back of head CBC W PLT NO DIFF Routine 02/14/2024 3:0 0 PM CDT Headache in back of head PROTIME-INR STAT 02/14/2024 3:00 PM CDT PAF (paroxysmal atrial fibrillation) (HC) INR,POCT Routine 01/30/2024 8:16 AM CDT PAF (paroxysmal atrial fibrillation) (HC) PROTIME-INR STAT 01/20/2024 1:33 PM CDT PAF (paroxysmal atrial fibrillation) (HC) INR,POCT Routine 12/05/2023 1:01 PM CDT PAF (paroxysmal atrial fibrillation) (HC) LIPID PANEL W REFLEX MEASURED LDL Routine 08/16/2023 8:32 AM DRESS OPERATOR Pure hypercholesterolemia SCAN-BONE DENSITOMETRY DEXA 06/11/2021 12:00 AM DRESS OPERATOR COLONOSCOPY SCREENING Routine 08/08/2019 7:39 AM DRESS OPERATOR History of colon polyps from Last 3 Months or Most Recently Relevant to Health Maintenance Results * (ABNORMAL) INR,POCT (02/22/2024 11:00 AM CDT) Only the most recent of3 resultswithin the time period is included. INR 2.4(H) <1.3 02/22/2024 11:00 AM CDT [facility] Blood BLOOD SPECIMEN / Unknown Capillary / Unknown 02/22/2024 11:00 AM CDT 02/22/2024 11:00 AM CDT Narrative [facility] - 02/22/2024 11:00 AM CDT ?Therapeutic Range 2.0-3.0 for most anticoagulated patients 2.5-3.5 or 4.0 for high risk patients Guera Dominique DO LABORATORY Performing Organization Address [facility]/ZIP Co de Phone Number [facility] [address] [place] [address], [place] [phone] * RED CELL MORPHOLOGY (02/14/2024 3:00 PM CDT) RBC COMMENT RBC morphology appears normal RBC morphology appears normal, RBC morphology within normal limits for newborns. 02/14/2024 3:43 PM CDT [facility] Blood BLOOD SPECIMEN / Unknown Venipuncture / Unknown 02/14/2024 3:00 PM CDT 02/14/2024 3:00 PM CDT Josie Cortés DO HEMATOLOGY Performing Organization Address [facility] Co de Phone Number [facility] [address] [place] [address], [place] [phone] * PLATELET ESTIMATE (02/14/2024 3:00 PM CDT) Pathologist [facility] PLATELET ESTIMATE Adequate Adequate, No estimate 02/14/2024 3:43 PM CDT [facility] Blood BLOOD SPECIMEN / Unknown Venipuncture / Unknown 02/14/2024 3:00 PM CDT 02/14/2024 3:00 PM CDT Josie Cortés DO HEMATOLOGY Performing Organization Address City/[facility]/ZIP Co de Phone Number [facility] [address] [place] [address], [place] [phone] * (ABNORMAL) CBC W PLT NO DIFF (02/14/2024 3:00 PM CDT) Pathologist [facility] WHITE BLOOD COUNT 5.1 4.5 - 11.0 thou/cu mm 02/14/2024 3:42 PM CDT [facility] RED BLOOD COUNT 4.22 4.00 - 5.20 mil/cu mm 02/14/2024 3:42 PM CDT [facility] HEMOGLOBIN 12.6 12.0 - 16.0 g/dL 02/14/2024 3:42 PM CDT [facility] HEMATOCRIT 38.4 33.0 - 51.0 % 02/14/2024 3:42 PM CDT [facility] MCV 91 80 - 100 fL 02/14/2024 3:42 PM CDT [facility] MCH 29.9 26.0 - 34.0 pg 02/14/2024 3:42 PM CDT [facility] MCHC 32.8 32.0 - 36.0 g/dL 02/14/2024 3:42 PM CDT [facility] RDW 14.6 11.5 - 15.5 % 02/14/2024 3:42 PM CDT [facility] PLATELET COUNT 197 140 - 440 thou/cu mm 02/14/2024 3:42 PM CDT [facility] MPV 11.3(H) 6.5 - 11.0 fL 02/14/2024 3:42 PM CDT [facility] Blood BLOOD SPECIMEN / Unknown Venipuncture / Unknown 02/14/2024 3:00 PM CDT 02/14/2024 3:00 PM CDT Josie Cortés DO HEMATOLOGY [facility] [address] [place] [address], * (ABNORMAL) PROTIME-INR (02/14/2024 3:00 PM CDT) Only the most recent of2 resultswithin the time period is included. INR 3.7(H) <1.3 02/14/2024 8:59 PM CDT [facility] PROTIME 40.0(H) 10.3 - 12.3 sec 02/14/2024 8:59 PM CDT [facility] Blood BLOOD SPECIMEN / Unknown Venipuncture / Unknown 02/14/2024 3:00 PM CDT 02/14/2024 3:00 PM CDT Narrative [facility] - 02/14/2024 8:59 PM CDT ?Therapeutic Range 2.0-3.0 for most anticoagulated patients 2.5-3.5 or 4.0 for high risk patients The INR is only used for patients on stable oral anticoagulant therapy. It makes no significant contribution to the diagnosis or treatment of patients whose Protime is prolonged for other reasons. INR results are increased when heparin levels exceed 1.0 U/mL, which corresponds to an aPTT >125 seconds if the patient is on UFH. Guera Tammy Eulogioveronica HEMATOLOGY [facility] [address] [place] [address], * (ABNORMAL) BASIC METABOLIC PANEL (02/14/2024 3:00 PM CDT) SODIUM 138 136 - 145 mmol/L 02/15/2024 6:30 AM [facility] POTASSIUM 4.3 3.5 - 5.1 mmol/L 02/15/2024 6:30 AM [facility] CHLORIDE 105 98 - 107 mmol/L 02/15/2024 6:30 AM [facility] CO2,TOTAL 24 22 - 29 mmol/L 02/15/2024 6:30 AM [facility] ANION GAP 9 5 - 18 02/15/2024 6:30 AM [facility] GLUCOSE 108(H) 70 - 99 mg/dL 02/15/2024 6:30 AM [facility] CALCIUM 9.4 8.8 - 10.2 mg/dL 02/15/2024 6:30 AM [facility] BUN 26(H) 8 - 23 mg/dL 02/15/2024 6:30 AM [facility] CREATININE 1.18(H) 0.50 - 0.90 mg/dL 02/15/2024 6:30 AM [facility] BUN/CREAT RATIO 22(H) 10 - 20 4 6:30 AM CDT [facility] eGFR 49(L) >90 mL/min/1.7 3m2 02/15/2024 6:30 AM CDT [facility] Comment:As of 2021, eG FR is calculated by the CKD-EPI creatinine equation without race adjustment. ??eGFR can be influenced by muscle mass, exercise, and diet. ??The reported eGFR is an estimation only and is only applicable if the renal function is stable. Blood BLOOD SPECIMEN / Unknown Venipuncture / Unknown 02/14/2024 3:00 PM CDT 02/14/2024 3:00 PM CDT Josie Cortés DO [facility] [address] [place] [address], * (ABNORMAL) LIPID PANEL W REFLEX MEASURED LDL (08/16/2023 8:32 AM DRESS OPERATOR) CHOLESTEROL,TOTAL 205(H) 100 - 199 mg/dL 08/16/2023 5:07 PM DRESS OPERATOR [facility] Comment: Cholesterol, Total Reference Ranges Desirable <200 mg/dL Borderline 200-239 mg/dL High >=240 mg/dL TRIGLYCERIDES 143 <150 mg/dL 08/16/2023 5:07 PM [facility] HDL CHOLESTEROL 63 >40 mg/dL 4 5:07 PM DRESS OPERATOR [facility] NON-HDL CHOLESTEROL 142 <145 mg/dl 08/16/2023 5:07 PM [facility] CHOL/HDL RATIO 3.25 <4.50 08/16/2023 5:07 PM [facility] LDL CHOLESTEROL 113 <=130 mg/dL 08/16/2023 5:07 PM [facility] VLDL CHOLESTEROL 29 <=30 mg/dL 08/16/2023 5:07 PM [facility] PROVIDER ORDERED STATUS RANDOM 08/16/2023 5:07 PM DRESS OPERATOR [facility] Blood BLOOD SPECIMEN / Unknown Venipuncture / Unknown 08/16/2023 8:32 AM DRESS OPERATOR 08/16/2023 8:33 AM DRESS OPERATOR Guera Dominique CHEMISTRY [facility] [address] [place] [address], * SCAN-BONE DENSITOMETRY DEXA (06/11/2021 12:00 AM DRESS OPERATOR) Anatomical Region Laterality Modality Other Scanner OTHER * COLONOSCOPY SCREENING [[id number]] (08/08/2019 7:39 AM DRESS OPERATOR) Mayur Foster MD GI PROCEDURE ORD from Last 3 Months or Most Recently Relevant to Health Maintenance Advance Directives * Full Code (Latest Code Status on File) Date Activated Date Inactivated Comments 04/07/2022 6:06 AM 04/07/2022 2:46 PM Question Answer Comments Code Status Discussion: Not Discussed * DNR Date Activated Date Inactivated Comments 03/20/2022 7:33 PM 03/22/2022 4:21 PM Question Answer Comments Code Status Discussion: Reviewed Preferences * Full Code Date Activated Date Inactivated Comments 07/17/2018 12:42 PM 07/21/2018 12:35 PM Question Answer Comments Code Status Discussion: Per Existing Order * Full Code Date Activated Date Inactivated Comments 07/14/2018 3:22 AM 07/17/2018 12:34 PM * Full Code Date Activated Date Inactivated Comments 12/22/2015 6:53 AM 12/22/2015 1:14 PM Care Teams Sausage Cooker Relationship Specialty Start Date End Date Guera Dominique DO [address] [place] [address] PCP - General Family Practice 08/06/22
--- OUTSIDE RECORDS SUMMARY | 2024-02-29 08:20 | XMS_ITS | Encounter Summary ---
Author Organization [facility] Address [address] [place] [address]. [place] [address] Care Team Providers Care Pharm Spec Name Role Phone Peewee Headley MD Primary Care Provider Mayur Foster Primary Care Provider UnavailNishant Read PA-C Unavailable [phone] Tom Dickens MD Unavailable [phone] Encounter Details Date Type Department Care Team (Late st Contact Info) Description 07/15/[address] [id number] Perla Lee MD [address] [place], [place] [id number] Social History Tobacco Use Types Packs/Day Years Used Date Smoking Tobacco: Never Smokeless Tobacco: Never Alcohol Use Standard Drinks/Week Comments Yes 0 (1 standard drink = 0.6 oz pur e alcohol) casual- 2 drinks per year Sex and Gender Information Value Date Recorded Sex Assigned at Not on file Gender Identity Not on file Sexual Orientation Not on file documented as of this encounter Progress Notes * Perla Lee MD - 07/15/2009 3:58 PM CST CC: Coffee Ground emesis and Dizziness HPI: Fartun Farias is a 59 year old female who presented to the ER this AM with complaints of not feeling well for the past several days. Has had nausea, vomiting and dizziness. Dizziness started last PM. About 5 am this AM she had a large episode of coffee ground emesis per her . Has been taking Ibuprofen recently No abdominal pain. No black tarry stools but had a guiac positive stool in the ER. No history of ulcers. Patient has no history of ulcers but has a history of gastric banding. Hashad to have dilation procedures in the past. No weight loss. Patient has also had increasingly severe PECK's. Started out just occasionally but over the past several weeks, have become debililtating. Having them almost every day. Back of head. No associated visual changes, numbness, weakness. Have been waking her from sleep at night. Family said they have lesley decline in her quality of life due to the headaches. No recent head trauma. No fevers. Patient Active Problem List Diagnoses Code ??? CARDIAC DYSRHYTHMIA - Pacemaker 427.89 ??? Osteopenia 733.90 ??? DIAPHRAGMATIC HERNIA 553.3 ??? s/p Gastric Bypass V45.86 ??? HYPERLIPIDEMIA NEC/NOS 272.4 ??? DDD (Degenerative Disc Disease), Lumbar 722.52G Past Surgical History Procedure Date ??? Gastric bypass 1997 stapling with band, last problem with this 3 years, open up with banding, surgeon-dr. omer ??? Hysterectomy, magda fibroids and precancerous calls ??? Removal gallbladder No current outpatient prescriptions on file. Allergies Allergen Reactions ??? No Known Drug Allergy Family History Mother of CHF Children alive and well Social History: . Works at [employer]. 2 children. No ETOH, tobacco and drug use. Full Code. Review Of Systems Skin: negative Eyes: negative Ears/Nose/Throat: negative Respiratory: Recently got over pleurisy Cardiovascular: Packemaker Gastrointestinal: as above Genitourinary: negative Musculoskeletal: Wrist pain after a fracture. Chronic low back pain Neurologic: as above Psychiatric: negative PE: BP 135/66, T-98.7, P 87, 96% RA Gen: Sleepy. Answers questions appropriately HEENT: TM's clear bilaterally. Mucous Membranes pink, moist. Sclera nonicteric. Neck: Supple. No adenopathy. Thyroid Midline. No masses. No nuchal rigidity CV: RRR No S3, S4, murmurs Lungs: CTA bilaterally Abdomen: + BS. Soft. NT/ND. No masses Extremities: No C/C/E Neuro: CN II-XII grossly intact. Strength 5/5 and symmetrical in extremities. FTN-FTF intact Guiac positive in ER. Labs: See FCIS A/P 1. Coffee ground emesis-some concern over GI bleed. History of gastric banding. Will consult GI. Keep NPO after midnight. Protonix IV. Will repeat H/H later on today. Patient is typed and screened. 2. Severe Headaches-increasing in severity. CT head was negative. Unable to do an MRI due to patient's pacemaker. Will get a CT of Head with contrast. Neurology consult. Will check TSH, sed rate and B12 and folate. 3. History of Sick Sinus Syndrome-has pacemaker 4. F/E/N-will keep on maintenance fluids. 5. Disp: Anticipate several days. Perla Lee MD ETRICS SPECIALIST documented in this encounter Plan of Treatment Not on file documented as of this encounter Visit Diagnoses Not on filedocumented in this encounter Care Teams Pharm Spec Relationship Specialty Start Date End Date Peewee Headley MD PCP - General 08/09/06 05/15/12 Mayur Foster PCP - General 05/16/12 Nishant Garcia PA-C [id number] [place] [id number] [place] [id number] Assigned Musculoskeletal Provider 05/03/21 01/21/23 [place] [id number] [address] [place] [id number] Assigned Neuroscience Provider 08/16/21 11/21/23 documented as of this encounter
--- NOTE | 2024-02-29 09:00 | CRLHL7_ITS ---
For Patients: As a result of the Century Cures Act, medical imaging exams and procedure reports are released immediately into your electronic medical record. You may view this report before your referring provider. If you have questions, please contact your health care provider. Indication: Headaches, history of breast cancer. Technique: Noncontrast followed by contrast-enhanced CT of the head multiplanar reconstruction. 106 cc Isovue 370 iodinated intravenous contrast was utilized. Comparison: CT head dated 07/12/2018. Findings: No acute intracranial hemorrhage. The ledesma-white matter interface is preserved. No focus of abnormal enhancement is identified. The ventricles are normal and unchanged in size. No abnormal extra-axial fluid collection is identified. The skull base and calvarium are within normal limits. There is evidence of prior cataract surgery. The imaged paranasal sinuses and mastoid air cells are clear. Impression: 1. No acute intracranial abnormality. 2. Subject to the limited sensitivity of CT, no intracranial mass, mass effect, or focus of abnormal enhancement. Please note that all CT scans at this facility use dose modulation, iterative reconstruction, and/or weight-based dosing when appropriate to reduce radiation dose to as low as reasonably achievable. Dictated by Diony Prince MD @ 03/02/2024 2:04:31 PM (Electronically Signed)
== END 2024-02-29 08:18 | disposition home or self-care (01) ==
LOC: CT 08:17
PROVIDERS: PCP Family Medicine; Visit Provider Internal Medicine Hematology & Oncology
DX: R51.9 Headache, unspecified (principal); C50.919 Malignant neoplasm of unspecified site of unspecified female breast; Z86.73 Personal history of transient ischemic attack (TIA), and cerebral infarction without residual deficits
CPT/HCPCS: 70470; Q9967

== ENCOUNTER 2024-06-07 11:05 | Outpatient (RCR) | payer MEDICARE, SELFPAY | END 2024-12-04 23:59 | disposition home or self-care (01) | LOC: CCIC 11:05 | PROVIDERS: PCP Family Medicine; Referring Provider Family Medicine; Visit Provider Physician Assistant | DX: C50.911 Malignant neoplasm of unspecified site of right female breast (principal); Z17.0 Estrogen receptor positive status [ER+]; Z79.810 Long term (current) use of selective estrogen receptor modulators (SERMs); M81.0 Age-related osteoporosis without current pathological fracture; Z79.01 Long term (current) use of anticoagulants; Z90.13 Acquired absence of bilateral breasts and nipples; Z86.73 Personal history of transient ischemic attack (TIA), and cerebral infarction without residual deficits; I48.91 Unspecified atrial fibrillation; Z51.81 Encounter for therapeutic drug level monitoring; Z92.21 Personal history of antineoplastic chemotherapy | CPT/HCPCS: 99215; G0463 ==

== ENCOUNTER 2024-09-09 19:21 | Emergency (ER) | payer MEDICARE, SELFPAY ==
--- OUTSIDE RECORDS SUMMARY | 2024-09-09 19:23 | XMS_ITS | Clinical Summary ---
Author Organization [facility] Address [place], [place] [address] Care Team Providers Care Assistant Store Leader Name Role Phone Guera Dominique DO Primary Care Provider [phone] Allergies Active Allergy Reactions Criticality Noted Date Comments Lisinopril Cough 05/09/2014 Narcotic Antagonist Nausea Only 05/08/2014 Medications ondansetron (ZOFRAN) 4 mg tabletIndicatio ns:Closed fracture of distal end of left radius with routine healing, unspecified fracture morphology, subsequent encounter Take 1 Tablet (4 mg) by mouth every 8 hours if needed for Nausea/Vomiting. 0 07/22/20 21 Active tamoxifen (NOLVADEX) 20 mg tablet Take 1 Tablet by mouth once daily. 10/22/19 22 Active calcium carbonate (CALCIUM 600 ORAL) Take 1 Tablet by mouth 2 times daily. Active cholecalciferol (VITAMIN D3) 1,000 unit tablet Take 2,000 units by mouth two times daily. Active zinc sulfate 50 mg zinc (220 mg) capsule Take 220 mg by mouth once weekly. (on ) Active acetaminophen (TYLENOL) 325 mg tabletIndicatio ns:Nephrolithia sis Take 2 Tablets (650 mg) by mouth every 4 hours if needed for Pain (For mild pain.). Max acetaminophen dose: 4000mg in 24 hrs. 0 03/22/20 22 Active CPAPIndications :JENNIFER (obstructive sleep apnea) CPAP machine for home use at pressure 4-15 cmw, nasal mask x1/3month with a nasal cushion x2/mo 1 Each 11 12/07/19 23 Active spironolactone (ALDACTONE) 25 mg tabletIndicatio ns:Cerebrovascu lar accident (CVA), unspecified mechanism (HC) Take 1 Tablet (25 mg) by mouth once daily. 90 Tablet 3 05/07/20 24 Active carvediloL (COREG) 3.125 mg tabletIndicatio ns:Essential hypertension,PA F (paroxysmal atrial fibrillation) (HC) Take 1 Tablet (3.125 mg) by mouth two times daily with meals. 90 Tablet 3 08/06/19 25 Active rosuvastatin (CRESTOR) 5 mg tabletIndicatio ns:Cerebrovascu lar accident (CVA), unspecified mechanism (HC) Take 1 Tablet (5 mg) by mouth at bedtime. 90 Tablet 3 08/06/19 25 Active polyethylene glycol-electrol yte (GOLYTELY) 236-22.74-6.74 -5.86 gram suspensionIndic ations:Encounte r for screening colonoscopy Drink 2 liters (half the bottle) the day before colonoscopy and 2 liters (remaining prep) 6 hours prior to colonoscopy appointment. 4000 mL 08/08/19 25 Active warfarin (COUMADIN) 5 mg tabletIndicatio ns:PAF (paroxysmal atrial fibrillation) (HC),Anticoagul ation monitoring, INR range 2-3 Take by mouth 5mg (5mg x1) daily in the evening OR as directed 90 Tablet 3 08/13/19 25 Active rivaroxaban (XARELTO) 20 mg tabletIndicatio ns:Cerebrovascu lar accident (CVA), unspecified mechanism (HC) Take 1 Tablet (20 mg) by mouth once daily with a meal. 30 Tablet 3 04/13/20 24 025 Discontin ued(*Med complete/ Regimen complete/ Level of care change) Active Problems Problem Noted Date Diagnosed Date Anticoagulation monitoring, INR range 2-3 2024 Chronic bronchitis, unspecified chronic bronchit is type 08/02/2023 DDD (degenerative disc disease), lumbar 06/27/20 23 Overview (06/27/2023): ~ June 2023: L4-L5 [place] epidural steroid injection by Dr. Jyotsna. 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 September 2020 Vitamin D deficiency 06/17/2020 Creatinine elevation 06/17/2020 Essential hypertension 07/26/2018 ACP (advance care planning) 07/18/2018 Overview (07/18/2018): Patient has identified Health Care Agent(s): Yes Add Health Care Agents: Yes Health Care Agent(s): Primary Health Care Agent: Peter Jarrett Relationship: spouse Secondary Health Care Agent: Vanesa Jarrett Relationship: daughter Conservator: Relationship: Phone: Guardian: Relationship: [...] knee replacement 017 Ascending aortic aneurysm 02/21/2017 Overview (02/21/2017): 3.8 cm on 02/11/2017 echo Repeat yearly Presence of permanent cardiac pacemaker 01/26/20 17 Sick sinus syndrome 01/25/2017 Status post total left knee replacement 06/02/20 16 Iron deficiency anemia 11/11/2015 s/p exploratory laparoscopy, removal of silastic VBG ring, extensive adhesiolysis, intra-op EGD 10/22/2015 Overview (10/22/2015): Dr. Rolle Gastric band malfunction 10/21/2015 JENNIFER 08/22/2018 AHi- 6.3 09/25/2022 AHI- 11 016 Stress-induced cardiomyopathy 05/09/2014 Adenomatous colon polyp 12/18/2013 Overview (08/10/2019): Colonoscopy 11/2013 polyps repeat in 5 years Colonoscopy 08/2019 polyps, repeat in 5 years Bronchospasm 11/28/2013 Primary osteoarthritis of both knees 11/14/2013 Gastritis 12/28/2011 Overview (12/28/2011): EGD 11/2011 Reactive gastropathy Bradycardia 01/14/2011 Overview (01/14/2011): S/p pacemaker 2002 Pure hypercholesterolemia 01/14/2011 Hiatal hernia 01/14/2011 Resolved Problems Problem Noted Date Diagnosed Date Resolved Date Chronic anticoagulation 08/02/202309/2023 Anticoagulation monitoring, INR range 2-3 08/02/2023 05/02/2024 Anticoagulation monitoring, INR range 2-3 [Z79.01] 08/31/2018 04/20/2023 Anticoagulation monitoring, special range 04/20/2017 05/12/2017 Anticoagulation monitoring, special range 06/02/2016 06/09/2016 Anticoagulation monitoring, special range 05/31/2016 07/15/2016 Encounters Date Type Department Care Team Description 09/06/2024 9:00 AM TRANSLATION DIRECTOR Orders Only [facility] [address] [place] [address] Lab, [place] [facility] 09/06/2024 Telephone [facility] [address] [place] [address] Guera Dominique, DO Anticoagulation (Procedure 11/02/24) 09/06/2024 Anticoagulation (warfarin) [facility] [address] [place] [address] 1, [facility] Anticoagulation 09/06/2024 Travel 08/13/2024 Anticoagulation (warfarin) [facility] [address] [place] [address] 1, [facility] Anticoagulation (Chart Update) 08/13/2024 Refill [facility] [address] [place] [address] Abdirashid Regalado MD, PhD Refill Request (Xarelto 20mg tabs) 08/10/2024 Telephone [facility] [address] [place] [address] Shaqra, Guera Tammy, DO Anticoagulation (Xarelto to warfarin transition) 08/10/[address] [address] Shaqra, Guera Tammy, DO Anticoagulation (INR Orders) 08/10/[address] [address] Shaqra, Guera Tammy, DO 08/08/[address] [address] Shaqra, Guera Tammy, DO Results 08/07/[address] [address] Jose Martin Souza MD pharmacy - [facility] 08/06/2024 7:40 AM TRANSLATION DIRECTOR Office Visit [address] [address] Shaqra Guera Tammy, DO Medicare ANNUAL (subsequent) Visit (74 year old female); Medication Management (Unable to afford Xarelto anymore) 08/06/2024 Travel 08/05/[address] [address] Shaqra, Guera Tammy, DO Refill Request (Carvedilol) 07/27/2024 Orders Only [address] [address] Jose Martin Souza MD <No scans attached> 07/08/[address] [address] Shaqra Guera Tammy, DO Refill Request (Carvedilol) 06/12/2024 Travel 06/11/2024 Refill [facility] [address] [place] [address] Guera Dominique, Refill Request (Rosuvastatin) from Last 3 Months Immunizations Name Administration Dates Next Due COVID-19 vaccine (WeLink NTOpenBook 30mcg/0.3mL) PF, MDV 07/28/2021 Influenza, High-dose Inactivated 05/20/2016,06/01,05/16/2014 Influenza, IIV3 (Age >=3 years) 05/21/2010 Influenza, IIV4 05/21/2010 Influenza, Inactivated AIIV4 (Age 65+ Years) Preserv Free 07/01/2023,07/22/2021,06/17/2020 Influenza, Inactivated IIV3 (Age 65+ Years) Preserv Free 08/06/2024,06/04/2019,04/06/2018,2016 Pneumococcal Poly,23-Valent (Pneumovax) 05/16/2014 Pneumococcal conj 13-Valent (Prevnar 13) 06/17/2015 Td (Age >=7 Years) 12/18/2002 Td, Preservative Free (age > = 7 Years) 12/18/2002 Tdap 08/04/2023,02/06/2013 Zoster (Shingrix-RZV, recombinant) 12/02/2022, Zoster [...] Answer Date Recorded PHQ-2 TOTAL SCORE 1 08/06/2024 Social Connections Answer Date Recorded Do you often feel lonely or isolated from those around you? 0 07/15/2023 Alcohol Use Answer Date Recorded [...] file 07/15/2023 Food Insecurity Answer Date Recorded Do you worry your food will run out before you are able to buy more? 1 07/15/2023 Transportation Needs Answer Date Record ed Does lack of transportation keep you from medica l appointments? 1 07/15/2023 Does lack of transportation keep you from work, meetings or getting things that you need? 1 07/15/2023 Housing Stability Answer Date Recorded What is your housing situation today? 1 07/15/2023 Utilities Answer Date Recorded Do you have trouble paying f or utilities (for example, heat, electricity, water, phone)? 1 07/15/2023 Comments No Sex and Gender Information Value Date Recorded Sex Assigned at Not on file Legal Sex Female 5:25 AM TRANSLATION DIRECTOR Gender Identity Not on file Sexual Orientation Not on file Occupation Industry Job Start Date Job End Date Not on file Not on file Not on file Not on file Obstetrics History Para Term AB IAB SAB Ectopic Multiple Livin g Live Births 2 2 2 2 Date Outcome GA Total Labor Labor/2nd/3rd Weight Sex Type Anes PTL Tammy A1 A5 Name Clin Term Term Last Filed Vital Signs Vital Sign Reading Time Taken Comments Blood Pressure 116/78 08/06/2024 7:55 AM TRANSLATION DIRECTOR Pulse 81 08/06/2024 7:55 AM TRANSLATION DIRECTOR Temperature 36.6 C (97.8 F) 08/25/2023 8:01 AM TRANSLATION DIRECTOR Respiratory Rate 20 12/03/2022 2:09 PM CDT Oxygen Saturation 96% 08/06/2024 7:55 AM TRANSLATION DIRECTOR Inhaled Oxygen Concentration - - Weight 95.9 kg (211 lb 6.4 oz) 08/06/2024 7:55 A M TRANSLATION DIRECTOR Height 168 cm (5' 6.14) 08/06/2024 7:55 AM TRANSLATION DIRECTOR Body Mass Index 33.97 08/06/2024 7:55 AM TRANSLATION DIRECTOR Plan of Treatment Upcoming Encounters Date Type Department Care Team (Late st Contact Info) Description 10/24/2024 7:40 AM CDT Office Visit [facility] [address] [place] [address] Guera Dominique DO [address] [place] [address] 11/02/2024 6:30 AM CDT Office Visit [facility] at [facility] [address] [place] [phone] Jose Martin Souza MD [address] [place] [address] 12/11/2024 10:00 AM CDT Cardiac Device Check [facility] [address] [place] [phone] Health Maintenance Due Date Last Done Comments RSV vaccine for adults or (1 - 1-dose 75+ series) 2024 COVID-19 vaccine series (2023- season) 2024 07/28/2021, 03/13/2021 Colonoscopy through age 75 08/08/202408/08, 08/08/2019, 08/08/2019, Additional history exists BMI (ht and wt on same day) for age 18+ 08/06/2025 08/06/2024, 08/02/2023, 12/03/2022, Additional history exists Medicare Wellness for age 65+ 08/07/2025, 08/02/2023, 08/20/2022, Additional history exists Depression screening for age 12+ 08/08/2025 08/08/2024, 08/07/2024, 08/06/2024, Additional history exists Lipids for age 45-75 08/06/2029 08/06/2024, 08/16/2023, 06/17/2020, Additional history exists Tetanus booster 08/04/2033 08/04/2023, 04/2013, 12/18/2002, Additional history exists Pneumococcal series for age 50+ Completed 5, 05/16/2014 Hepatitis C screening for ag e 18-79 Completed 06/14/2020 (Completed outsid e of Aretha) DEXA/DXA scan for age 65+ Completed 06/11/2021 Zoster (shingles) series for age 50+ Completed 12/02/2022, 08/23/2022, 03/07/2013 Tdap Completed 08/04/2023, 02/06/2013 Influenza for age 65+ Completed 08/06/2024 , 07/01/2023, 07/22/2021, Additional history exists Medical Devices Implanted Type Area New Car Driver Device Identifier Shelf Expiration Date Model / Serial / Lot Standard Pacemaker- 002 Implanted:2001 by Leonides Coffey MD (Quantity not on file) Standard Pacemaker GUIDANT [id number] / [id number] / Stent Uret [id number] Contour - [id number] Implanted:Qty: 1 on 03/21/2022 by Troy Quintanilla MD at [facility] Right: Ureter [facility] [id number] / / [id number] Stent Uret [id number] Contour - [id number] Implanted:Qty: 1 on 04/07/2022 by Troy Quintanilla MD at [facility] Right: Ureter [facility] 07/09/2024 [id number] / / [id number] Procedures Procedure Name Priority Date/Time Associated Diagnosis Comments PROTIME-INR Routine 09/06/2024 9:16 AM TRANSLATION DIRECTOR PAF (paroxysmal atrial fibrillation) (HC) Anticoagulation monitoring, INR range 2-3 LIPID PANEL W REFLEX MEASURED LDL Routine 08/06/2024 9:11 AM TRANSLATION DIRECTOR Pure hypercholesterolemia BASIC METABOLIC PANEL Routine 08/06/2024 9:11 AM TRANSLATION DIRECTOR Essential hypertension HEMOGLOBIN A1C Routine 08/06/2024 9:11 AM TRANSLATION DIRECTOR Elevated glucose SCAN-BONE DENSITOMETRY DEXA 06/11/2021 12:00 AM TRANSLATION DIRECTOR COLONOSCOPY SCREENING Routine 08/08/2019 7:39 AM TRANSLATION DIRECTOR History of colon polyps from Last 3 Months or Most Recently Relevant to Health Maintenance Results * (ABNORMAL) PROTIME-INR [17389.0] - Standing Order (09/06/2024 9:16 AM TRANSLATION DIRECTOR) INR 2.0(H) <1.3 09/06/2024 2:38 PM TRANSLATION DIRECTOR [facility] PROTIME 22.8(H) 10.6 - 12.4 sec 09/06/2024 2:38 PM TRANSLATION DIRECTOR [facility] Blood BLOOD SPECIMEN / Unknown [facility] / Unknown 09/06/2024 9:16 AM TRANSLATION DIRECTOR 09/06/2024 9:16 AM TRANSLATION DIRECTOR Narrative [facility] - 09/06/2024 2:38 PM TRANSLATION DIRECTOR Therapeutic Range 2.0-3.0 for most anticoagulated patients 2.5-3.5 [...] if the patient is on UFH. Guera Dominique DO HEMATOLOGY Final Result [facility] [address] [place] [address], * (ABNORMAL) HEMOGLOBIN A1C (08/06/2024 9:11 AM TRANSLATION DIRECTOR) HEMOGLOBIN A1C 6.0(H) <5.7 % of total Hgb [facility] Comment: For someone without known diabetes, a hemoglobin A1c value between 5.7% and 6.4% is consistent with prediabetes and should be confirmed with a follow-up test. For someone with known diabetes, a value <7% indicates that their diabetes is well controlled. A1c targets should be individualized based on duration of diabetes, age, comorbid conditions, and other considerations. This assay result is consistent with an increased risk of diabetes. Currently, no consensus exists regarding use of hemoglobin A1c for diagnosis of diabetes for children. Blood BLOOD SPECIMEN / Unknown 08/06/2024 9:11 AM TRANSLATION DIRECTOR 08/06/2024 9:11 AM TRANSLATION DIRECTOR Guera Dominique DO CHEMISTRY Final Result [facility] [address] [place] [address], [facility] [address] [place] [address] * LIPID PANEL W REFLEX MEASURED LDL (08/06/2024 9:11 AM TRANSLATION DIRECTOR) [facility] Signature CHOLESTEROL, TOTAL 150 <200 mg/dL [facility] HDL CHOLESTEROL 70 > OR = 50 mg/dL [facility] TRIGLYCERIDES 112 <150 mg/dL [facility] LDL-CHOLESTEROL 60 mg/dL (calc) [facility] Comment: Reference range: <100 Desirable range <100 mg/dL for primary prevention; <70 mg/dL for patients with CHD or diabetic patients with > or = 2 CHD risk factors. LDL-C is now calculated using the Jose Martin-Corado calculation, which is a validated novel method providing better accuracy than the Friedewald equation in the estimation of LDL-C. Jose Martin SS et al. DORIE. 2013;310(19): 4155-8665 (http://education.Qvanteq.[employer]/faq/ICA791) CHOL/HDLC RATIO 2.1 <5.0 (calc) [facility] NON HDL CHOLESTEROL 80 <130 mg/dL (calc) [facility] Comment: For patients with diabetes plus 1 major ASCVD risk factor, treating to a non-HDL-C goal of <100 mg/dL (LDL-C of <70 mg/dL) is considered a therapeutic option. Blood BLOOD SPECIMEN / Unknown 08/06/2024 9:11 AM TRANSLATION DIRECTOR 08/06/2024 9:11 AM TRANSLATION DIRECTOR Guera Dominique DO CHEMISTRY Final Result Performing Organization Address [facility]/ZIP Co de Phone Number [employer] [facility] [address] [place] [address], [place] [phone] [facility] [address] [place] [address] * (ABNORMAL) BASIC METABOLIC PANEL (08/06/2024 9:11 AM TRANSLATION DIRECTOR) [facility] GLUCOSE 103(H) 65 - 99 mg/dL [facility] Comment: Fasting reference interval For someone without known diabetes, a glucose value between 100 and 125 mg/dL is consistent with prediabetes and should be confirmed with a follow-up test. UREA NITROGEN (BUN) 17 7 - 25 mg/dL [facility] CREATININE 1.00 0.60 - 1.00 mg/dL [facility] EGFR 59(L) > OR = 60 mL/min/1. 73m2 [facility] BUN/CREATININE RATIO SEE NOTE: 6 - 22 (calc) [facility] Comment: Not Reported: BUN and Creatinine are within reference range. SODIUM 141 135 - 146 mmol/L [facility] POTASSIUM 4.0 3.5 - 5.3 mmol/L [facility] CHLORIDE 105 98 - 110 mmol/L [facility] CARBON DIOXIDE 27 20 - 32 mmol/L [facility] ELECTROLYTE BALANCE 9 7 - 17 mmol/L (calc) [facility] CALCIUM 9.0 8.6 - 10.4 mg/dL [facility] Blood BLOOD SPECIMEN / Unknown 08/06/2024 9:11 AM TRANSLATION DIRECTOR 08/06/2024 9:11 AM TRANSLATION DIRECTOR Guera Tammy Trip DO CHEMISTRY Final Result Performing Organization Address City/[facility]/ZIP Co de Phone Number [employer] [facility] [address] [place] [address], [place] [phone] [facility] [address] [place] [address] * SCAN-BONE DENSITOMETRY DEXA (06/11/2021 12:00 AM TRANSLATION DIRECTOR) Anatomical Region Laterality Modality Other us Scanner OTHER Final Result * COLONOSCOPY SCREENING [[id number]] (08/08/2019 7:39 AM TRANSLATION DIRECTOR) Myaur Foster MD GI PROCEDURE ORD Final R esult from Last 3 Months or Most Recently Relevant to Health Maintenance Insurance MEDICARE PART A HB ONLY [employer] MEDICARE ADVANTAGE [employer] Advance Directives * Full Code (Latest Code [...] 6:53 AM 12/22/2015 1:14 PM Care Teams Assistant Store Leader Relationship Specialty Start Date End Date Guera Dominique DO [address] [place] [address] PCP - General Family Practice 08/06/22
--- OUTSIDE RECORDS SUMMARY | 2024-09-09 19:23 | XMS_ITS | Clinical Summary ---
Author Organization [facility] Address [address] [place] [address] Care Team Providers Care Overlock Waistline Joiner Name Role Phone Mayur Foster Primary Care Provider Unavailabl e Allergies Active Allergy Reactions Criticality Noted Date Comments No Known Drug Allergy 12/07/2006 Medications carvedilol (COREG) 3.125 MG tablet Take 3.125 [...] vomiting Active diclofenac (VOLTAREN) 1 % topical gelIndications:Sheba sed fracture of multiple ribs of right side, initial encounter Apply 4 g topically 4 times daily 5 g 1 1 Active hydrOXYzine (ATARAX) 25 MG tabletIndications: Closed fracture of multiple ribs of right side, initial encounter Take 1-2 tablets (25-50 mg) by mouth every 6 hours as needed for other (adjuvant pain) 30 tablet 1 Active Lidocaine (LIDOCARE) 4 % PatchIndications:C losed fracture of multiple ribs of right side, initial encounter Place 1 patch onto the skin every 24 hours To prevent lidocaine toxicity, patient should be patch free for 12 hrs daily. 10 patch 1 1 Active oxyCODONE (ROXICODONE) 5 MG tabletIndications: Closed fracture of multiple ribs of right side, initial encounter Take 1 tablet (5 mg) by mouth every 6 hours as needed for severe pain 12 tablet 1 Active methocarbamol (ROBAXIN) 500 MG tabletIndications: Compression fracture of L1 vertebra with routine healing, subsequent encounter Take 1 tablet (500 mg) by mouth 4 times daily as needed for muscle spasms 20 tablet 1 Active gabapentin (NEURONTIN) 300 MG capsule Take 300 mg by mouth At Bedtime Active Active Problems Problem Noted Date Diagnosed Date Facet arthropathy, lumbosacral 08/11/2021 Compression fracture of L1 v ertebra with routine healing, subsequent encounter 04/30/2021 Rib fractures 03/15/2021 Knee pain 12/05/2014 HYPERLIPIDEMIA LDL GOAL <160 05/31/2010 DDD (degenerative disc disease), lumbosacral Disorder of bone and cartilage 08/09/2006 Overview (05/01/2015): Problem list name updated by automated process. Provider to review Diaphragmatic hernia 08/09/2006 Overview (05/01/2015): Problem list name updated by automated process. Provider to review s/p Gastric Bypass 08/09/2006 Overview (08/09/2006): 2002 Hyperlipidemia 08/09/2006 Overview (05/01/2015): Problem list name updated by automated process. Provider to review CARDIAC DYSRHYTHMIA - Pacemaker 08/03/2006 Overview (07/15/2009): Sick Sinus Syndrome Immunizations Name Administration Dates [...] School Help Needed Not on file 04/24 Comments No Sex and Gender Information Value Date Recorded Sex Assigned at Not on file Legal Sex Female 4:43 AM SHANK PINNER Gender Identity Not on file Sexual Orientation Not on file Last Filed Vital Signs Vital Sign Reading Time Taken Comments Blood Pressure 165/90 05/03/2022 1:36 PM CDT Pulse 77 05/03/2022 1:36 PM CDT Temperature 36.1 C (96.9 F) 03/17/2021 7:39 AM CDT Respiratory Rate 16 03/09/2022 7:22 AM CDT [...] 1950 DEXA 1967 HEPATITIS C SCREENING 1967 FIT 07/15/2010 07/15/2009, 08/09/2006 MAMMO SCREENING 07/22/2011 07/22/2010, 12/31, 08/31/2004 LIPID 05/02/2012 05/02/2007 FALL RISK ASSESSMENT 2014 COLONOSCOPY 02/08/2017 02/08/2007 COLORECTAL CANCER SCREENING 02/08/2017 MEDICARE ANNUAL WELLNESS VISIT 07/22/2022 07/22/2021, 06/17/2020 DTAP/TDAP/TD IMMUNIZATION (2 - Td or Tdap) 02/06/2023 02/06/2013, 12/18/2002 RSV VACCINE (1 - 1-dose 75+ series) 2024 GLUCOSE 03/15/2024 03/15/2021, 05/01, 02/27/2011, Additional history exists COVID-19 Vaccine ( - season) 2024 07/28/2021, 03/13/2021 INFLUENZA VACCINE (#1) 2024 , 06/17/2020, 06/04/2019, Additional history exists PHQ-2 (once per calendar year) 2024 01/12/2022 Pneumococcal Vaccine: 50+ Years Completed 06/17/2015, 05/16/2014 ZOSTER IMMUNIZATION Completed [...] SCREENING DIGITAL BILATERAL Routine 07/22/2010 9:00 AM SHANK PINNER Other screening mammogram OCCULT BLOOD STOOL STAT 07/15/2009 6: 55 AM SHANK PINNER CL AFF A.M.A. LIPID PANEL Routine 05/02/2007 [...] 7:46 PM CDT 03/15/2021 7:58 PM CDT us Liz Lopez MD LAB - BLOOD ORDERABLES Final R esult LABORATORY [facility] [address] Lab (1st floor, no room number) [place] [address], [facility] [phone] * Mammo Screening digital (bilat) (07/22/2010 9:00 AM SHANK PINNER) Anatomical Region Laterality Modality Breast Bilateral Other 07/22/2010 9:00 AM SHANK PINNER Impressions 07/22/2010 9:57 AM SHANK PINNER SCREENING MAMMOGRAPHY, BILATERAL, DIGITAL, w/CAD July 22, 2010. HISTORY/COMPARISON: 01/27/2007 BREAST PARENCHYMAL PATTERN: Heterogeneously dense. FINDINGS: Negative. IMPRESSION: BI-RADS 1, NEGATIVE. Liseth Holly MD IMG MAMMOGRAPHY ORDERABLES Edite d * (ABNORMAL) Occult blood stool (07/15/2009 6:55 AM SHANK PINNER) Occult Blood Positive(A ) NEG MISYS 07/15/2009 6:55 AM SHANK PINNER 07/15/2009 7:02 AM SHANK PINNER Anastasia Castaneda MD LAB - STOOLS ORDERABLES Final Result MISYS * A.M.A. LIPID PANEL (05/02/2007 11:16 AM CDT) Cholesterol 170 0 - 200 mg/dL [facility] Comment: LDL Cholesterol is the primary guide to therapy: LDL-cholesterol goal in high risk patients is <100 mg/dL and in very high risk patients is <70 mg/dL. The NCEP recommends further evaluation of: patients with cholesterol <200 mg/dL if additional risk factors are present, cholesterol >240 mg/dL, triglycerides >150 mg/dL, or HDL <40 mg/dL. Triglycerides 133 0 - 150 mg/dL [facility] HDL Cholesterol 56 50 - 110 mg/dL [facility] LDL Cholesterol Calculated 87 0 - 129 mg/dL [facility] Comment: LDL Cholesterol is the primary guide to therapy: LDL-cholesterol goal in high risk patients is <100 mg/dL and in very high risk patients is <70 mg/dL. VLDL-Cholesterol 27 0 - 30 mg/dL [facility] Cholesterol/HDL Ratio 3.0 0.0 - 5.0 [facility] 05/02/2007 11:1 6 AM CDT 05/02/2007 11:18 AM CDT Peewee Headley MD LABORATORY Final Result [place] [id number] * COLONOSCOPY (02/08/2007 10:00 AM CDT) COLONOSCOPY Endoscopy Patient Name: Fartun Farias Gender: F Procedure Date: 02/08/2007 10:00 AM Date of : 1950 Age: 56 Admit Type: Outpatient Attending MD: Triston Bryant Procedure: Colonoscopy Indications: Avg risk screening for malignant neoplasm in the colon Providers: Triston Bryant MD Referring MD: Peewee Headley MD Medicines: Fentanyl 100 mcg IV, Midazolam 2 mg IV, Atropine 0.6 mg IV Complications: No immediate complications Procedure: - A History and Physical has been performed, and patient medication allergies have been reviewed. The patient The risks and benefits of the procedure and the sedation options and risks were discussed with the patient. All questions were answered and informed consent was obtained. Patient identification and proposed procedure were verified prior to the procedure by the physician in the procedure room. Mental Status Examination: normal. Respiratory Examination: clear to auscultation. CV Examination: normal. ASA Grade Assessment: P2 A patient with mild systemic disease. After reviewing the risks and benefits, the patient was deemed in satisfactory condition to undergo the procedure. The anesthesia plan was to use moderate sedation / analgesia (conscious sedation). Immediately prior to administration of medications, the patient was re-assessed for adequacy to receive sedatives. The heart rate, respiratory rate, oxygen saturations, blood pressure, adequacy of pulmonary ventilation, and response to care were monitored throughout the procedure. The physical status of the patient was re-assessed after the procedure. After obtaining informed consent, the colonoscope was passed under direct vision. Throughout the procedure, the patient's blood pressure, pulse, and oxygen saturations were monitored continuously. The [id number] was introduced through the anus and advanced to the ileum. The colonoscopy was accomplished without difficulty. The patient tolerated the procedure well. The quality of the prep was good. Findings: The digital rectal exam was normal. The rectum, sigmoid colon, descending colon, splenic flexure, transverse colon, hepatic flexure, ascending colon, cecum, ileocecal valve and ileum were normal. The retroflexed view of the anal verge was normal and showed no anal or rectal abnormalities. The terminal ileum was normal. Impression: - The rectum, sigmoid colon, descending colon, splenic flexure, transverse colon, hepatic flexure, ascending colon, cecum, ileocecal valve and terminal ileum are normal. - The terminal ileum is normal. Recommendation: - Discharge patient to home (ambulatory). - Collect hemoccults on three spontaneously passed stools annually. - Flexible Sigmoidoscopy in 3 years. - Return to primary care provider PRN. Marissa Bryant M.D Triston Bryant MD Signed Date: 02/08/2007 10:22 AM Number of Addenda: 0 I was physically present for the entire viewing portion of the exam. Note generated on 02/08/2007 10:02 AM RADIOLOGY RESULTS COLONOSCOPY RADIOLOG Y RESULTS 02/08/2007 10:0 0 AM CDT us Jorge Headley MD PROCEDURES Edited RADIOLOGY RESULTS from Last 3 Months or Most Recently Relevant to Health Maintenance Insurance BCBS MEDICARE ADVANTAGE [employer] [facility] MEDICARE ADVANTAGE Advance Directives For more information, please contact: [phone] * Full Code (Latest Code Status on File) Date Activated Date Inactivated Comments 03/15/2021 11:10 PM 03/17/2021 1:25 PM All basic a nd advanced life-sustaining interventions are performed as appropriate Question Answer Comments Code status determined by: Discussion with jose nt/ legal decision maker Care Teams Overlock Waistline Joiner Relationship Specialty Start Date End Date Mayur Foster PCP - General 05/16/12
--- OUTSIDE RECORDS SUMMARY | 2024-09-09 19:23 | XMS_ITS | Encounter Summary ---
Author Organization [facility] Address [address] [place] [address]. [place] [address] Care Team Providers Care Investor Relations Associate Name Role Phone Peewee Headley MD Primary Care Provider Mayur Foster Primary Care Provider UnavailNishant Read PA-C Unavailable [phone] Tom Dickens MD Unavailable [phone] Encounter Details Date Type Department Care Team (Late st Contact Info) Description 07/15/[address] [address] Perla Lee MD [address] [place], [place] [id number] Social History Tobacco Use Types Packs/Day Years Used Date Smoking Tobacco: Never Smokeless Tobacco: Never Alcohol Use Standard Drinks/Week Comments Yes 0 (1 standard drink = 0.6 oz pur e alcohol) casual- 2 drinks per year Comments No Sex and Gender Information Value Date Recorded Sex Assigned at Not on file 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 Works at [employer]. 2 children. No ETOH, tobacco and drug [...] Disp: Anticipate several days. Perla Lee MD WRIGHT SUPERVISOR documented in this encounter Plan of Treatment Not on file documented as of this encounter Visit Diagnoses Not on filedocumented in this encounter Care Teams Investor Relations Associate Relationship Specialty Start Date End Date Peewee Headley MD PCP - General 08/09/06 05/15/12 Mayur Foster PCP - General 05/16/12 Nishant Garcia PA-C [address] [place] [address] [place] [id number] Assigned Musculoskeletal Provider 05/03/21 01/21/23 [place] [id number] [address] [place] [id number] Assigned Neuroscience Provider 08/16/21 11/21/23 documented as of this encounter
--- OUTSIDE RECORDS SUMMARY | 2024-09-09 19:23 | XMS_ITS | Continuity of Care Document ---
Author Organization [facility] Address [address] [place] [address] [address] [place] [address] Phone Care Team Providers Care Pipe Foreman Name Role Phone No Information Unavailable Unavailable Procedures Procedure Date Office consultation, moderate 0 X-ray exam lwr spine, min 4 views Advance Directives Directive Yes / No Effective Date File Name No Information Encounters Encounter Description Practice Location Reason(s) For Visit Diagnoses Date Provider Providers Copied on Encounter [facility], [address] [place] [address], [address], tel:[phone] No Information 8-201 0 No Information Office consultation, moderate Z [facility], [address] [place] [address], [place], [address], tel:[phone] [facility] No Information 0-201 0 Cody Hinojosa. [facility], [address], [address], [place], [place], [id number], . tel:[phone] Referring Provider: Micaela Ross, [facility] [address], [address], [place], [address] . tel:[phone] Family History Family Member Type Diagnosis Age [...]
--- OUTSIDE RECORDS SUMMARY | 2024-09-09 19:24 | XMS_ITS | Continuity of Care Document ---
Author Organization [facility] Address [address] [facility] [address] [place] [address] Phone Care Team Providers Care Pai Gow Dealer Name Role Phone Person Drew RODARTE Unavailable Unavailable Allergies, Adverse Reactions, Alerts Substance Reaction Status Criticality No Known Allergies Active No Inform ation Medications Medication Instructions Dosage Effective Dates (start - stop) Status Comments TAMOXIFEN CITRATE (unknown strength) take 1 tablet by oral route every day in the morning Not Available - Active COREG (unknown strength) take 1 tablet by oral route 2 times every day with food Not Available - Active WARFARIN SODIUM (unknown strength) take 1 tablet by oral route every day Not Available - Active Procedures Procedure Date [...] Est Pt Eval Telehealth [facility], [address], [place], [place], [id number], [place] tel:[phone] [facility] lower back pain (chief complaint) Body mass index (BMI) 37.0-37.9, adultSpinal stenosis, lumbar region with neurogenic claudicationLow back pain 4 Person Drew. [address], [place], [place], [address], [place]. tel:[phone] Referring Provider: Bryant Barr, [address], [place], [address] . tel:[phone] Devyn [facility], [address], [place], [place], [id number], [place] tel:[phone] [facility] No Information 4 Yvette Aranda. [address], [place], [address], [place]. tel:[phone] Referring Provider: Manoj Ovalle, [address], [place], [address]. tel:[phone] [facility], [address], [place], [address], [place] tel:[phone] [facility] Right Low Back Pain (chief complaint) Radiculopathy, lumbar regionSacroiliit is, not elsewhere classifiedSacroi liitis, not elsewhere classified 4 [facility]. [address], [place], [place], [id number], [place]. tel:[phone] Referring Provider: Manoj Ovalle, [address], [place], [address]. tel:[phone] Devyn, [facility], [address], [place], [place], [id number], [place] tel:[phone] [facility] No Information 4 Yvette Aranda. [address] [facility] [address], [place], [address], [place]. tel:[phone] Referring Provider: Manoj Ovalle, [address] [facility] [address], [place], [address]. tel:[phone] [facility], [facility], [address] [facility] [address], [place], [place], [id number], [place] tel:[phone] [facility] Low back painSpinal stenosis, lumbar region with neurogenic claudication 4 Iesha Davidson. [address] [facility] [address], [place], [address], [place]. tel:[phone] Referring Provider: *PCP *No. New Pt Eval Moderate Devyn, [facility], [address] [facility] [address], [place], [place], [address], [place] tel:[phone] [facility] back pain (chief complaint) Body mass index (BMI) 37.0-37.9, adultEssential (primary) hypertensionLow back painSpinal stenosis, lumbar region with neurogenic claudication 4 Iesha Davidson. [address] [facility] [address], [place], [address], [place]. tel:[phone] Referring Provider: Bryant Barr, [address] [facility] [address], [place], [address] . tel:[phone] Family History Family Member Type Diagnosis Age At Onset No Information Payers Payer name Insurance type Covered democrat ID kp rendon(s) Blue Cross Medicare 16 [id number] Social History Type Description Quantity Date Captured [...] discuss next stepsDiscuss with your PCP or Clay Molder regarding holding your Coumadin for 5 days [...] Mental Status Date Cognitive Assessment Orientation - Samaria ed to time, place, person, situation. Patient Care Teams Name Effective Dates (start - stop) Status Members No Information
--- OUTSIDE RECORDS SUMMARY | 2024-09-09 19:24 | XMS_ITS | Continuity of Care Document ---
Author Organization [facility] Address [address] [address] [place] [address] Phone Care Team Providers Care Facilities Locator Name Role Phone Eric Jacob MD Unavailable [...] Diagnoses Date Provider Providers Copied on Encounter [facility], [address] [address], [place], [id number], [place] tel:[phone] [facility] No Information Cecil Reyes. [facility], [place] [address], [place], [place], [address], [place]. tel:[phone] Offic/outpt E&m New Mod-hi [facility], [address] [address], [place], [id number], [place] tel:[phone] [facility] GI Symptoms or Concerns (chief complaint) DyspepsiaWeight lossNauseaDietar y counseling and surveillance Cecil Reyes. [address] [place] [address], [place] [address], [place], [place], [id number], [place]. tel:[phone] Referring Provider: Mayur Foster MD W, [address] [place] [address], [place], [address]. tel:[phone] [facility] Minr Compl [facility], [address] [address], [place], [address], [place] tel:[phone] [facility] No Information No Information Referring Provider: Sudarshan Adams MD, [address] [place] [address], [place], [address] . tel:[phone] Init Inpt Cons New/est Mod-hi [facility], [address] [address], [place], [address], [place] tel:[phone] [facility] No Information Volodymyr Call. [facility], [facility] [address], [place], [place], [id number], [place]. tel:[phone] Referring Provider: Sudarshan Adams MD, [address] [place] [address], [place], [address] . tel:[phone] [facility], [address] [address], [place], [address], [place] tel:[phone] [facility] No Information 9 Gardenia Gamble. [address] [facility], [facility] [address], [place], [place], [address], [place]. tel:[phone] [facility], [address] [address], [place], [id number], [place] tel:[phone] [facility] No Information 8 No Information Offic Cons New/estab Minor 15 [facility], [address] [address], [place], [id number], [place] tel:[phone] [facility] No Information 8 Volodymyr Call. [address] [facility], [facility] [address], [place], [place], [address], [place]. tel:[phone] Referring Provider: Leonides Bond, [address], [place], [address]. tel:[phone] [facility], [address] [address], [place], [id number], [place] tel:[phone] [facility] No Information 7 Link MD Young. [address] [facility], [facility] [address], [place], [place], [address], [place]. tel:[phone] [facility], [address] [address], [place], [id number], [place] tel:[phone] [facility] No Information 7 No Information Referring Provider: Leonides Bond, [address], [place], [address]. tel:[phone] Family History Family Member Type Diagnosis Age [...] Provider Payers Payer name Insurance type Covered libertarian [place] Giacomo rendon(s) Blue Cross [place] Blue BL [id number] Social History Type Description Quantity Date Captured [...]
--- OUTSIDE RECORDS SUMMARY | 2024-09-09 19:24 | XMS_ITS | Data Portability ---
Author Organization [facility], [facility] [employer] Address [facility] [facility] [address] [place] [address] Care Team Providers Care Oenologist Name Role Phone MEJIA DE OLIVEIRA Primary Care Provider Assessment No assessment recorded. Plan of Treatment Reminders Order Date Submit Date Provider Last Modified By Organization Details Last Modified Time Details Appointments None record ed. Lab None record ed. Referral None record ed. Procedures None record ed. Surgeries None record ed. Imaging None record ed. Medication Orders None record ed. Patient TargetsNo targets recorded. Patient Instructions Encounter Date Encounter Id Patient Instructions Last Modified By Organization Details Last Modified Time 04/20/2022 [id number] push fluids and call if problems Not available 04/21/2022 09:24:54 Reason for Referral None Reported. Results Created Date Observation Date Name Description Value Unit Range Abnormal Flag Note LastModifiedBy Organization Detail LastModifiedTime Result Notes None recorded. Problems Name Problem SNOMED Code Status Onset Date Resolution Date Notes Provider Name and Address Organization Details Recorded Time Bradycard ia 82112201 Active 2010 Erica arnold [facility] 2 16:03:23 Iron deficienc y anemia 93698568 Active 2015 Erica arnold [facility] 2 16:03:23 Seasonal allergy 922954479 Active 2017 Erica arnold [facility] 2 16:03:23 Vitamin D deficienc y 89028051 Active 2019 Erica arnold [facility] 2 16:03:23 Paroxysma l atrial fibrillat ion 072972937 Active 2017 Erica arnold [facility] 2 16:03:23 History of bariatric surgical procedure 749777702 Active 2015 Erica arnold [facility] 2 16:03:23 Essential hypertens ion 19066657 Active 2017 Erica arnold [facility] 2 16:03:23 Complicat ion of implant 94036276 Active 2015 Erica arnold [facility] 2 16:03:23 Patient encounter status 903343913 Completed 201707/18/2018 Erica arnold [facility] 2 16:03:23 Takotsubo cardiomyo balbir 798873197 Active 2013 Erica arnold [facility] 2 16:03:24 Embolic stroke 774906397 Active 2017 Erica arnold [facility] 2 16:03:24 Cardiac pacemaker in situ 633051223 Active 2016 Erica arnold [facility] 2 16:03:24 Kidney stone 59268641 Active 2021 Erica arnold [facility] 2 16:03:24 Pure hyperchol esterolem ia 874997177 Active 2010 Erica arnold [facility] 2 16:03:24 Hiatal hernia 19874754 Active 2010 Erica arnold [facility] 2 16:03:24 Adenomato us polyp of colon 961044845 Active 2013 Erica arnold [facility] 2 16:03:24 Bronchosp asm 2374345 Active 2013 Erica arnold [facility] 2 16:03:24 Gastritis 8019068 Active 2011 Erica arnold [facility] 2 16:03:24 Primary osteoporo sis 521659807 Active 2020 Erica arnold [facility] 2 16:03:24 Long-term current use of anticoagu lant 474669219 Active 2018 Erica arnold [facility] 2 16:03:24 Obstructi ve sleep apnea syndrome 09535479 Active 2015 Erica arnold [facility] 2 16:03:24 Primary malignant neoplasm of breast 129396639 Active 2020 Erica arnold [facility] 2 16:03:24 Creatinin e level - finding 003813888 Active 2019 Erica arnold [facility] 2 16:03:24 Sick sinus syndrome 99178221 Active 2016 Erica arnold [facility] 2 16:03:24 Aneurysm of ascending aorta 556991366 Active 2016 Erica arnold [facility] 2 16:03:24 History of total knee arthropla sty 440889504943 5 Active 2015 Erica arnold [facility] 2 16:03:24 Primary gonarthro sis, bilateral 608869620 Active 2013 Erica arnold [facility] 2 16:03:24 Problem Notes None recorded. Procedures Surgical History Date Name Laterality Status Provider Name and Address Organization Details Recorded Time 2 Cystoscopy with foreign body/stent removal completed Troy Quintanilla MD [address] [place], [place] [address], [place], [address], [facility] 04/21/2022 09:24:26 Imaging Results None recorded. Procedure Notes None recorded. Medical Equipment None Reported. Allergies Allergen ID Allergen Name Allergen Category Reaction Reaction Severity Criticality Documentation Date Start Date Code Code System Note Provider Name and Address Organization Details Recorded Time 994481 lisinopri l medicatio n cough Not available Not available 04/20/20222013 55599 RxNorm Not Available Not Available Not Available Medications Name Sig Start Date Stop Date Status Note LastModified by Organization Details LastModified Time methocarbamo l 500 mg tablet active Not Available Not Available Not Available anastrozole 1 mg tablet active Not Available Not Available Not Available acetaminophe n 325 mg tablet 650 mg by oral route. 2021 active Not Available Not Available Not Avai lable hydrocodone 5 mg-acetamino phen 325 mg tablet 04/20 completed Not Available Not Available Not Available ondansetron HCl 4 mg tablet Take 4 mg by oral route. 04/20 completed Not Available Not Available Not Available carvedilol 3.125 mg tablet 3.125 mg by oral route. active Not Available Not Available No t Available zinc sulfate 50 mg zinc (220 mg) tablet 110 mg by oral route. 03/21 completed Not Available Not Available Not Available lorazepam 0.5 mg tablet 04/20 completed Not Available Not Available Not Available tamsulosin 0.4 mg capsule TAKE ONE CAPSULE BY MOUTH ONCE DAILY IN THE EVENING active Not Available Not Available No t Available cephalexin 500 mg capsule 04/20 completed Not Available Not Available Not Available warfarin 5 mg tablet 2021 active Not Available Not Available Not Avai lable gabapentin 300 mg capsule 03/21 completed Not Available Not Available Not Available furosemide 20 mg tablet 20 mg by oral route. active Not Available Not Available No t Available albuterol sulfate HFA 90 mcg/actuatio n aerosol inhaler active Not Available Not Available Not Available Percocet 5 mg-325 mg tablet 1 {tbl} by oral route. active Not Available Not Available No t Available ondansetron 4 mg disintegrati ng tablet active Not Available Not Available No t Available cholecalcife rol (vitamin D3) 125 mcg (5,000 unit) capsule 125 ugs by oral route. 03/21 completed Not Available Not Available Not Available tamoxifen 20 mg tablet 1 {tbl} by oral route. active Not Available Not Available No t Available oxycodone 5 mg tablet 04/20 completed Not Available Not Available Not Available zinc sulfate 50 mg zinc (220 mg) capsule 220 mg by oral route. active Not Available Not Available No t Available cholecalcife rol (vitamin D3) 25 mcg (1,000 unit) tablet 2000 units by oral route. active Not Available Not Available No t Available calcium 600 mg (as carbonate)-v itamin D3 10 mcg (400 unit) tablet 03/21 completed Not Available Not Available Not Available Vitals Date Recorded Body height Body mass index (BMI) Body weight Provider Name and Address Organization Details Last Updated DateTime 04/20/2022 170.18 cm 33.7 kg/m2 31149.36 g Erica Grimm [facility] 04/20/2022 16:03:03 Social History Question Answer Notes LastModified by Organizat ion Details LastModified Time Tobacco Smoking Status Never Smoker Erica arnold [facility] 04/20/2022 16:09:32 What Was The Date Of Your Most Recent Tobacco Screening? 04/20/2022 Information not available 04/20/2022 Do You Or Have You Ever Used Any Other Forms Of Tobacco Or Nicotine? No Information not available 04/20/2022 Sex: Unknown Functional Status None recorded. Mental Status None recorded. Family History Nothing Reported. Medical History Condition Response Other N High Blood Pressure N Kidney Stones Y Depression N Lung Disease N GERD/Acid Reflux N Sexually Transmitted Infection N Cancer N High Cholesterol N Diabetes N Bleeding Disorder N Heart Disease N Gynecological HistoryNo gynecological history recorded. Obstetrics History GPAL:G 0 P 0 0 0 0 Immunizations Vaccine Type Date Status Note Provider Nam e and Address Organization Details Recorded Time Influenza, split virus, quadrivalent, PF 0 completed Erica arnold [facility] 04/20/2022 16:03:34 Influenza, adjuvanted, quadrivalent, PF [facility]:03:[facility] Influenza, adjuvanted, trivalent, PF 8 [facility] 16:03:34 Influenza, split virus, trivalent, preservative 0 completed Erica Grimm null, [facility] 04/20/2022 16:03:34 Pneumococcal conjugate PCV 13 5 completed Erica Grimm null, [facility] 04/20/2022 16:03:34 Influenza, high-dose, trivalent, PF 4 completed Erica Grimm null, [facility] 04/20/2022 16:03:34 Influenza, high-dose, trivalent, PF 6 completed Erica Grimm null, [facility] 04/20/2022 16:03:34 Tdap 3 completed Erica Grimm null, [facility] 04/20/2022 16:03:34 Influenza, high-dose, trivalent, PF 5 completed Erica Grimm null, [facility] 04/20/2022 16:03:34 Influenza, adjuvanted, quadrivalent, PF 1 completed Erica Grimm null, [facility] 04/20/2022 16:03:34 COVID-19, mRNA, LNP-S, PF, 30 mcg/0.3 mL dose 1 completed Erica Grimm null, [facility] 04/20/2022 16:03:34 Td (adult), 2 Lf tetanus toxoid, preservative free, adsorbed 3 completed Erica Grimm null, [facility] 04/20/2022 16:03:34 zoster live 3 completed Erica Grimm null, [facility] 04/20/2022 16:03:34 pneumococcal polysaccharide PPV23 4 completed Erica Grimm null, [facility] 04/20/2022 16:03:34 Td (adult), 5 Lf tetanus toxoid, preservative free, adsorbed 3 completed Erica Grimm null, [facility] 04/20/2022 16:03:34 Influenza, adjuvanted, trivalent, PF 9 completed DAGOBERTO [facility] 04/20/2022 16:03:34 Influenza, adjuvanted, trivalent, PF 7 completed DAGOBERTO [facility] 04/20/2022 16:03:34 Past Encounters Encounter ID Performer Location Encounter Start Date Encounter Closed Date Diagnosis/Indication Diagnosis SNOMED-CT Code Diagnosis ICD10 Code Diagnosis Note [id number] Troy Quintanilla MD [facility] [address] [place] [address] 04/20/2022 15:53:34 04/22/2022 12:08:58 Ureteric stone 04371058 N20.1 Health Concerns Section Related Observation LastModified by Organization Detai ls LastModified Time None Recorded Concern Status LastModified by Organization Details LastModified Time None Recorded Advance Directives Directive None Recorded Payers Encounter Date Sequence Insurance Name Policy Number Policy Boone Covered Member ID Boone Member ID Guarantor Name 04/20/2022 1 [place] [employer] COST [id number] Fartun Farias [id number] Fartun Farias Notes Date Note Type Note Provider Name and Address Organization Details Recorded Time 04/20/2022 text/html here for stent removal. stone was calcium oxalate Troy Quintanilla MD [address] [facility],[address], [place], [address], [facility] 04/21/2022 09:25:05 OBGyn Episode No OBEpisode recorded.
--- NOTE | 2024-09-09 19:29 | ED.GENADULT ---
HPI - General Adult General Date Seen: 09/09/24 Chief complaint: Fall/Minor Trauma Stated complaint: on coumadin, fell on stairs, inr high, Time Seen by Provider: 09/09/24 19:29 History of Present Illness HPI narrative: 74-year-old female with a history of AFib (on warfarin. INR 2/6 was 2.0), sick sinus syndrome, pacemaker also history of high cholesterol, ascending aortic aneurysm, previous stroke, CHF, iron deficiency anemia, history of breast cancer, sleep apnea, gastric band surgery. She presents to the ER today with her family with concern that she fell. She was walking out of her home just prior to her about what she lost her balance on her front step and fell backward. She hit the right occipital parietal portion of her scalp against the steps. She saw stars but did not get knocked out. Since then she has had a mild headache. Also mild ache in the back of her neck. No blurry vision. No nausea vomiting. Normal mental status. No confusion. No focal numbness or weakness. Knowing that head injury on Coumadin can be dangerous, she and her family came immediately here to the ER. No other injuries from the fall. She think she might have bumped her right elbow but does not even have a marker a bruise there yet. No other pain. Related Data Home Medications ?Medication ?Instructions ?Recorded ?Confirmed albuterol sulfate 90 mcg/actuation 2 inh inhalation Q4H PRN shortness 03/18/22 07/23/24 aerosol inhaler of breath or wheezing carvedilol 3.125 mg tablet 3.125 mg PO Q12H 03/18/22 09/09/24 denosumab 60 mg/mL subcutaneous 60 mg subcut [id number] 06/14/22 07/23/24 syringe calcium carbonate-vitamin D3 500 1 cap PO BID 11/18/22 07/23/24 mg (1,250 mg)-50 unit capsule spironolactone 25 mg tablet 25 mg PO QDAY 08/04/23 07/23/24 rosuvastatin 5 mg tablet 5 mg PO DAILY 06/07/24 09/09/24 warfarin 5 mg tablet 5 mg PO DAILY 09/09/24 09/09/24 Previous Rx's ?Medication ?Instructions ?Recorded tamoxifen 20 mg tablet 20 mg PO DAILY #90 tabs 11/11/24 Allergies Allergy/AdvReac Type Severity Reaction Status Date / Time No Known Drug Allergies Allergy Verified 09/09/24 19:33 [facility] Medical History , RN) Osteoporosis Surgical History , RN) H/O bilateral mastectomy Status post arthroscopy of right knee (04/13/18) Status post arthroscopy of right shoulder (10/29/93) 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) Status post total right knee replacement (04/13/17) Social History (Reviewed 06/14/22 @ 09:44 by Silva Page ~ [facility], [facility]) Smoking Status: Never smoker Do you use any of these nicotine containing products: None Second hand tobacco smoke exposure: No How often do you have a drink containing alcohol: monthly or less How many standard drinks containing alcohol do you have on a typical day: 1 or 2 How often do you have six or more drinks on one occasion: Never AUDIT-C Alcohol total score: 1 Non-prescribed substance use: denies use service: No Exam Const: Vital Signs, click to edit/add: Vital Signs - 24 hr 09/09/24 19:30 Temperature 97.6 F Pulse Rate [Pulse Oximeter] 93 Respiratory Rate 18 Blood Pressure [Ri ght Upper Arm] 170/91 H Pulse Oximetry 96 Oxygen Delivery Me thod Room Air Course Course ED Course: Primary Survey: A- patent. Speaking clearly. Phonation normal. No stridor. B- breathing easily. Lung sounds clear and equal. Oxygen saturation normal on room air C- no active bleeding. Blood pressure stable. Symmetric pulses and cap refill in 4 extremities. D- alert and oriented x3. GCS 15. No focal deficits. Constitutional: Appears well-developed and well-nourished. Alert. Conversant. Non toxic. HENT: Head: Right occipital parietal scalp tenderness with subtle hematoma. Exam head trauma. Nose: Nose normal. Mouth/Throat: Oral mucosa is clear and moist. no trismus. Pharynx normal. Tonsils symmetric. No tonsillar enlargement, erythema, or exudate. Eyes: Conjunctivae normal. EOM normal. Pupils equal, round, and reactive to light. No scleral icterus. Neck: She does have posterior tenderness at the base of the skull in the midline but no step-off. Cannot be cleared by nexus. Normal range of motion. Neck supple. No tracheal deviation present. Cardiovascular: Normal rate, regular rhythm. No gallop. No friction rub. No murmur heard. Symmetric radial artery pulses Pulmonary/Chest: Effort normal. No stridor. No respiratory distress. No wheezes. No rales. No rhonchi . No tenderness. Abdominal: Soft. No distension. No mass. No tenderness. No rebound. No guarding. Musculoskeletal: RUE: Normal range of motion. No tenderness. No deformity LUE: Normal range of motion. No tenderness. No deformity RLE: Normal range of motion. No edema. No tenderness. No deformity LLE: Normal range of motion. No edema. No tenderness. No deformity Neurological: Alert and oriented to person, place, and time. Normal strength. CN II-VII intact. No sensory deficit. GCS eye subscore is 4. GCS verbal subscore is 5. GCS motor subscore is 6. Normal coordination Skin: Skin is warm and dry. No rash noted. No pallor. Normal capillary refill. Psychiatric: Normal mood. Normal affect. Vital Signs Vital signs: Initial Vital Signs Temperature 97.6 F 09/09/24 19:30 Temperature Source Temporal Artery Scan 09/09/24 19:30 Pulse Rate 93 09/09/24 19:30 Respiratory Rate 18 09/09/24 19:30 Blood Pressure 170/91 H 09/09/24 19:30 Blood Pressure Mean 117 H 09/09/24 19:30 Blood Pressure Position Sitting 09/09/24 19:30 Pulse Oximetry 96 09/09/24 19:30 Oxygen Delivery Method Room Air 09/09/24 19:30 Vital Signs Temperature 97.6 F 09/09/24 19:30 Pulse Rate 93 09/09/24 19:30 Respiratory Rate 18 09/09/24 19:30 Blood Pressure 170/91 H 09/09/24 19:30 Pulse Oximetry 96 09/09/24 19:30 Oxygen Delivery Method Room Air 09/09/24 19:30 Temperature 97.6 F 09/09/24 19:30 Pulse Rate 93 09/09/24 19:30 Respiratory Rate 18 09/09/24 19:30 Blood Pressure 170/91 H 09/09/24 19:30 Pulse Oximetry 96 09/09/24 19:30 Oxygen Delivery Method Room Air 09/09/24 19:30 Medical Decision Making MDM Narrative Medical decision making narrative: This patient presents with blunt head trauma. She is on warfarin for stroke prophylaxis for AFib. INR 3 days ago was 2.0. At this point I think she needs a repeat INR check. Differential includes intracranial injuries (e.g. skull fracture, epidural hematoma, subdural hematoma, intracerebral hemorrhage, and traumatic subarachnoid hemorrhage), verses concussion or other traumatic brain injury. CT imaging was obtained and fortunately was normal. Discussed the risk of delayed bleeding when on a blood thinner and precautions for return to the ER. The patient/family understand that they must return if any red flags appear/develop in the coming hours/days, as this may represent an indication to perform a repeat CT scan or further evaluation. I have noted that red flags include: headaches that get worse, increased drowsiness, strange behavior, repetitive speech, seizures, repeated vomiting, growing confusion, increased irritability, slurred speech, weakness or numbness, and loss of responsiveness. This information will also be provided in writing at discharge. The patient's questions have been answered. They have a responsible adult to accompany them home. Imaging Data CT C spine: Attestation: I have reviewed the pertinent imaging results. Radiologist's impression: Impression: 1. No convincing radiographic evidence of acute osseous injury. 2. Scattered degenerative changes of the cervical spine. CT scan - head: Attestation: I have reviewed the pertinent imaging results. Radiologist's impression: Impression: No acute intracranial abnormality. No significant changes compared to the prior exam. Discharge Plan Discharge Clinical Impression: Head injury, Warfarin anticoagulation Patient Disposition: Home, Self-Care Condition: Stable Instructions: Head Injury (DC) Additional Instructions: As we discussed, please come back to the ER right away if you have any worsening in your condition, especially worsening headache, blurry vision, confusion, nausea vomiting, numbness or weakness in your arms and legs, unsteadiness. Please continue on warfarin and follow-up with your doctor to recheck her INR as planned. Prescriptions: No Action denosumab 60 mg/mL syringe 60 mg subcut [id number] spironolactone 25 mg tablet 25 mg PO QDAY rosuvastatin 5 mg tablet 5 mg PO DAILY tamoxifen 20 mg tablet 20 mg PO DAILY Qty: 90 3RF carvedilol 3.125 mg tablet 3.125 mg PO Q12H albuterol sulfate 90 mcg/actuation HFA aerosol inhaler 2 inh INHALATION Q4H PRN (Reason: shortness of breath or wheezing) warfarin 5 mg tablet 5 mg PO DAILY calcium carbonate-vitamin D3 500 mg(1,250mg) -50 unit capsule 1 cap PO BID Follow Up/Referrals: Guera Dominique DO [Primary Care Provider] - Stand Alone Forms: [employer] Info Instructions
[2024-09-09 19:30] VITALS: BP 170/91; PULSE 93; RESP 18; TEMP 36.4; O2SAT 96; BMI 32.3
--- NOTE | 2024-09-09 19:36 | CRLHL7_ITS ---
For Patients: As a result of the Century Cures Act, medical imaging exams and procedure reports are released immediately into your electronic medical record. You may view this report before your referring provider. If you have questions, please contact your health care provider. Indication: FALL, ON COUMADIN. HX RT BREAST CANCER Technique: CT of the head without contrast. Coronal and sagittal reformats. Bone and soft tissue windows. Comparison: CT 02/29/2024 Findings: No acute intracranial hemorrhage or extra-axial collection. No evidence of acute cortical infarction. No mass effect or midline shift. Normal cerebral volume. The ventricles are normal in size, shape and contour. There is normal babin and white matter differentiation. The orbital contents are normal. No calvarial fractures. No lytic or sclerotic osseous lesions within the calvarium or skull base. Scalp and other imaged soft tissue structures are normal. Mastoid air cells are clear. Paranasal sinuses are well aerated. Advanced degenerative changes at the anterior atlantoaxial articulation. Impression: No acute intracranial abnormality. No significant changes compared to the prior exam. Please note that all CT scans at this facility use dose modulation, iterative reconstruction, and/or weight-based dosing when appropriate to reduce radiation dose to as low as reasonably achievable. Dictated by Mike Nelson MD @ 09/09/2024 8:35:15 PM (Electronically Signed)
--- NOTE | 2024-09-09 19:45 | CRLHL7_ITS ---
For Patients: As a result of the Century Cures Act, medical imaging exams and procedure reports are released immediately into your electronic medical record. You may view this report before your referring provider. If you have questions, please contact your health care provider. Indication: Fall on Coumadin Technique: Noncontrast axial CT of the cervical spine with coronal and sagittal reformats are provided. Comparison: No prior studies available for comparison at this institution. Findings: Fusion of the T2-T4 posterior elements. Moderate interspace narrowing at C3-4, C4-5, C5-6, C6-7 C7-T1 and severe interspace narrowing at T1-2 to with anterior osteophytic spurring. No aggressive osseous lesions. The craniocervical junction is unremarkable. Advanced degenerative changes at the anterior atlantoaxial articulation. Congenital nonunion of the C1 posterior arch. C1-2: No spinal canal stenosis. C2-3: No significant spinal canal stenosis or neural foraminal narrowing. C3-4: Shallow disc osteophyte complex and uncovertebral joint hypertrophy. [id number] left neural foraminal narrowing. No significant spinal canal stenosis or right neural foraminal narrowing. C4-5: Uncovertebral joint hypertrophy. Moderate right and mild left neural foraminal narrowing. Shallow disc osteophyte complex. No significant spinal canal stenosis. C5-6: Uncovertebral joint hypertrophy and facet arthrosis results in moderate left neural foraminal narrowing. No significant spinal canal stenosis or right neural foraminal narrowing. C6-7: Uncovertebral joint hypertrophy results in severe right and moderate left neural foraminal stenosis. Shallow disc osteophyte complex without significant spinal canal stenosis. C7-T1: No significant spinal canal stenosis or neural foraminal narrowing. The lung apices are clear. Impression: 1. No convincing radiographic evidence of acute osseous injury. 2. Scattered degenerative changes of the cervical spine. Please note that all CT scans at this facility use dose modulation, iterative reconstruction, and/or weight-based dosing when appropriate to reduce radiation dose to as low as reasonably achievable. Dictated by Mike Nelson MD @ 09/09/2024 8:38:35 PM (Electronically Signed)
--- OUTSIDE RECORDS SUMMARY | 2024-09-09 20:03 | XMS_ITS | Encounter Summary ---
Author Organization [facility] Address [address] [place] [address]. [place] [address] Care Team Providers Care Manager Foreign Name Role Phone Peewee Headley MD Primary Care Provider Mayur Foster Primary Care Provider UnavailNishant Read PA-C Unavailable [phone] Tom Dickens MD Unavailable [phone] Encounter Details Date Type Department Care Team (Late st Contact Info) Description 07/15/[address] [address] Perla Lee MD [address] [place] [place], [place] [address] Social History Tobacco Use Types Packs/Day Years Used Date Smoking Tobacco: Never Smokeless Tobacco: Never Alcohol Use Standard Drinks/Week Comments Yes 0 (1 standard drink = 0.6 oz pur e alcohol) casual- 2 drinks per year Comments No Sex and Gender Information Value Date Recorded Sex Assigned at Not on file 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 Works at [employer]. 2 children. No ETOH, tobacco and drug [...] Disp: Anticipate several days. Perla Lee MD LINE OPERATOR documented in this encounter Plan of Treatment Not on file documented as of this encounter Visit Diagnoses Not on filedocumented in this encounter Care Teams Manager Foreign Relationship Specialty Start Date End Date Peewee Headley MD PCP - General 08/09/06 05/15/12 Mayur Foster PCP - General 05/16/12 Nishant Garcia PA-C [address] [place] [address] [place] [address] Assigned Musculoskeletal Provider 05/03/21 01/21/23 [place] [address] [place] [id number] Assigned Neuroscience Provider 08/16/21 11/21/23 documented as of this encounter
--- OUTSIDE RECORDS SUMMARY | 2024-09-09 20:03 | XMS_ITS | Continuity of Care Document ---
Author Organization [facility] Address [address] [place] [address] [address] [place] [address] Phone Care Team Providers Care Division Plant Engineer Name Role Phone No Information Unavailable Unavailable Procedures Procedure Date Office consultation, moderate 0 X-ray exam lwr spine, min 4 views Advance Directives Directive Yes / No Effective Date File Name No Information Encounters Encounter Description Practice Location Reason(s) For Visit Diagnoses Date Provider Providers Copied on Encounter [facility], [address] [place] [address], [address], tel:[phone] No Information 8-201 0 No Information Office consultation, moderate [facility], [address] [place] [address], [place], [address], tel:[phone] [facility] No Information 0-201 0 Cody Hinojosa. [facility], [address], [address], [place], [place], [id number], . tel:[phone] Referring Provider: Micaela Ross, [facility] [address], [address], [place], [address] . tel:[phone] Family History Family Member Type Diagnosis Age [...]
--- OUTSIDE RECORDS SUMMARY | 2024-09-09 20:03 | XMS_ITS | Continuity of Care Document ---
Author Organization [facility] Address [address] [address] [place] [address] Phone Care Team Providers Care Strip Winder Name Role Phone Eric Jacob MD Unavailable [...] Diagnoses Date Provider Providers Copied on Encounter [facility], [address] [address], [place], [id number], [place] tel:[phone] [facility] No Information Cecil Reyes. [facility], [place] [address], [place], [place], [address], [place]. tel:[phone] Offic/outpt E&m New Mod-hi [facility], [address] [address], [place], [id number], [place] tel:[phone] [facility] GI Symptoms or Concerns (chief complaint) DyspepsiaWeight lossNauseaDietar y counseling and surveillance Cecil Reyes. [address] [place] [address], [place] [address], [place], [place], [address], [place]. tel:[phone] Referring Provider: Mayur Foster MD W, [address] [place] [address], [place], [address]. tel:[phone] [facility] Minr Compl [facility], [address] [address], [place], [address], [place] tel:[phone] [facility] No Information No Information Referring Provider: Sudarshan Adams MD, [address] [place] [address], [place], [address] . tel:[phone] Init Inpt Cons New/est Mod-hi [facility], [address] [address], [place], [id number], [place] tel:[phone] [facility] No Information Volodymyr Call. [facility], [facility], [place], [place], [address], [place]. tel:[phone] Referring Provider: Sudarshan Adams MD, [address] [place] [address], [place], [address] . tel:[phone] [facility], [address] [address], [place], [address], [place] tel:[phone] [facility] No Information 9 Gardenia Gamble. [address] [facility], [facility], [place], [place], [address], [place]. tel:[phone] [facility], [address] [address], [place], [address], [place] tel:[phone] [facility] No Information 8 No Information Offic Cons New/estab Minor 15 [facility], [address] [address], [place], [address], [place] tel:[phone] [facility] No Information 8 Volodymyr Call. [address] [facility], [facility], [place], [place], [address], [place]. tel:[phone] Referring Provider: Leonides Bond, [address], [place], [address]. tel:[phone] [facility], [address] [address], [place], [address], [place] tel:[phone] [facility] No Information 7 Link MD Young. [address] [facility], [facility] [address], [place], [place], [address], [place]. tel:[phone] [facility], [address] [address], [place], [id number], [place] tel:[phone] [facility] No Information 7 No Information Referring Provider: Leonides Bond, [address], [place], [address]. tel:[phone] Family History Family Member Type Diagnosis Age [...] Provider Payers Payer name Insurance type Covered alliance party ID Giacomo rendon(s) Blue Cross [employer] [place] Blue BL [id number] Social History Type Description Quantity Date Captured [...]
--- OUTSIDE RECORDS SUMMARY | 2024-09-09 20:03 | XMS_ITS | Continuity of Care Document ---
Author Organization [facility] Address [address] [facility] [address] [place] [address] Phone Care Team Providers Care Land Acquisition Manager Name Role Phone Person Drew RODARTE Unavailable [...] Est Pt Eval Telehealth [facility], [address], [place], [place], [address], [place] tel:[phone] [facility] lower back pain (chief complaint) Body mass index (BMI) 37.0-37.9, adultSpinal stenosis, lumbar region with neurogenic claudicationLow back pain 4 Person Drew. [address], [place], [place], [address], [place]. tel:[phone] Referring Provider: Bryant Barr, [address], [place], [address] . tel:[phone] Devyn [facility], [address], [place], [place], [address], [place] tel:[phone] [facility] No Information 4 Yvette Aranda. [address], [place], [address], [place]. tel:[phone] Referring Provider: Manoj Ovalle, [address], [place], [address]. tel:[phone] [facility], [address], [place], [address], [place] tel:[phone] [facility] Right Low Back Pain (chief complaint) Radiculopathy, lumbar regionSacroiliit is, not elsewhere classifiedSacroi liitis, not elsewhere classified 4 [facility]. [address], [place], [place], [address], [place]. tel:[phone] Referring Provider: Manoj Ovalle, [address], [place], [address]. tel:[phone] Devyn, [facility], [address], [place], [place], [address], [place] tel:[phone] [facility] No Information 4 Yvette Aranda. [address] [facility] [address], [place], [address], [place]. tel:[phone] Referring Provider: Manoj Ovalle, [address] [facility] [address], [place], [address]. tel:[phone] [facility], [facility], [address], [place], [place], [address], [place] tel:[phone] [facility] Low back painSpinal stenosis, lumbar region with neurogenic claudication 4 Iesha Davidson. [address] [facility] [address], [place], [address], [place]. tel:[phone] Referring Provider: *PCP *No. New Pt Eval Moderate Devyn, [facility], [address] [facility] [address], [place], [place], [address], [place] tel:[phone] [facility] back pain (chief complaint) Body mass index (BMI) 37.0-37.9, adultEssential (primary) hypertensionLow back painSpinal stenosis, lumbar region with neurogenic claudication 4 Iesha Davidson. [address] [facility] [address], [place], [address], [place]. tel:[phone] Referring Provider: Bryant Barr, [address] [facility] [address], [place], [address] . tel:[phone] Family History Family Member Type Diagnosis Age At Onset No Information Payers Payer name Insurance type Covered democrat ID kp rendon(s) Blue Cross Medicare 16 [id number] Social History Type Description Quantity Date Captured [...] discuss next stepsDiscuss with your PCP or Extrusion Operator regarding holding your Coumadin for 5 days prior to the procedure Related to Spinal stenosis, lumbar region with neurogenic claudication Lifestyle education regarding di et Related to Body mass index [BMI] 37.0-37.9, adult Hypertension education Related t o High BP Assessments Type Assessment Date assessment Body mass index [BMI] 37.0-37.9, adult assessment Spinal stenosis, lumbar region w ith neurogenic claudication impression Fartun presents with axial lower back pain secondary [...] have MRIs due to older pacemaker. assessment Low back pain impression See above Mental Status Date Cognitive Assessment Orientation - [place] ed to time, place, person, situation. Patient Care Teams Name Effective Dates (start - stop) Status Members No Information
--- OUTSIDE RECORDS SUMMARY | 2024-09-09 20:03 | XMS_ITS | Clinical Summary ---
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 LIPID PANEL Routine 05/02/2007 [...] - BLOOD ORDERABLES Final R esult LABORATORY [facility] [address] Lab (1st floor, no room number) [place] [address], [facility] [phone] * Mammo Screening digital (bilat) (07/22/2010 9:00 AM COMPUTER PATTERNMAKER) Anatomical Region Laterality Modality Breast Bilateral Other 07/22/2010 9:00 AM COMPUTER PATTERNMAKER Impressions 07/22/2010 9:57 AM COMPUTER PATTERNMAKER SCREENING MAMMOGRAPHY, BILATERAL, DIGITAL, w/CAD July 22, 2010. HISTORY/COMPARISON: 01/27/2007 BREAST PARENCHYMAL PATTERN: Heterogeneously dense. FINDINGS: Negative. IMPRESSION: BI-RADS 1, NEGATIVE. Liseth Holly MD IMG MAMMOGRAPHY ORDERABLES Edite d * (ABNORMAL) Occult blood stool (07/15/2009 6:55 AM COMPUTER PATTERNMAKER) Occult Blood Positive(A ) NEG MISYS 07/15/2009 6:55 AM COMPUTER PATTERNMAKER 07/15/2009 7:02 AM COMPUTER PATTERNMAKER Anastasia Castaneda MD LAB - STOOLS ORDERABLES Final Result MISYS * A.M.A. LIPID PANEL (05/02/2007 11:16 AM CDT) Cholesterol 170 0 - 200 mg/dL [facility] Comment: LDL Cholesterol is the primary guide to therapy: LDL-cholesterol goal in high risk patients is <100 mg/dL and in very high risk patients is <70 mg/dL. The NCEP recommends further evaluation of: patients with cholesterol <200 mg/dL if additional risk factors are present, cholesterol >240 mg/dL, triglycerides >150 mg/dL, or HDL <40 mg/dL. Triglycerides 133 0 - 150 mg/dL [facility] HDL Cholesterol 56 50 - 110 mg/dL [facility] LDL Cholesterol Calculated 87 0 - 129 mg/dL [facility] Comment: LDL Cholesterol is the primary guide to therapy: LDL-cholesterol goal in high risk patients is <100 mg/dL and in very high risk patients is <70 mg/dL. VLDL-Cholesterol 27 0 - 30 mg/dL [facility] Cholesterol/HDL Ratio 3.0 0.0 - 5.0 [facility] 05/02/2007 11:1 6 AM CDT 05/02/2007 11:18 [...] and oxygen saturations were monitored continuously. The [id number] was introduced through the anus and advanced [...] Insurance BCBS MEDICARE ADVANTAGE [employer] [facility] MEDICARE ADVANTAGE Advance Directives For more information, please contact: [phone] * Full Code (Latest Code Status on File) Date Activated Date Inactivated Comments 03/15/2021 11:10 PM 03/17/2021 1:25 PM All basic a nd advanced life-sustaining interventions are performed as appropriate Question Answer Comments Code status determined by: Discussion with jose nt/ legal decision maker Care Teams Eligibility Services Representative Relationship Specialty Start Date End Date Mayur Foster PCP - General 05/16/12
--- OUTSIDE RECORDS SUMMARY | 2024-09-09 20:03 | XMS_ITS | Clinical Summary ---
Author Organization [facility] Address [place], [place] [address] Care Team Providers Care Coiler Operator Name Role Phone Guera Dominique DO Primary Care Provider [phone] Allergies Active Allergy Reactions Criticality Noted Date [...] healing 06/17/2021 Overview (06/17/2021): See DEXA from [facility] 06/2021 Primary cancer of right breast 10/02/2020 [...] Department Care Team Description 09/06/2024 9:00 AM LPN RN HOSPICE Orders Only [facility] [address] [place] [address] Lab, [place] [facility] 09/06/2024 Telephone [facility] [address] [place] [address] Guera Dominique, DO Anticoagulation (Procedure 11/02/24) 09/06/2024 Anticoagulation (warfarin) [facility] [address] [place] [address] 1, [place] Anticoagulation 09/06/2024 Travel 08/13/2024 Anticoagulation (warfarin) [facility] [address] [place] [address] 1, [place] [facility] Anticoagulation (Chart Update) 08/13/2024 Refill [facility] [address] [place] [address] Abdirashid Regalado MD, PhD Refill Request (Xarelto 20mg tabs) 08/10/2024 Telephone [facility] [address] [place] [address] Shaqra, Guera Tammy, DO Anticoagulation (Xarelto to warfarin transition) 08/10/[address] [address] Shaqra, Guera Tammy, DO Anticoagulation (INR Orders) 08/10/[address] [address] Shaqra, Guera Tammy, DO 08/08/[address] [address] Shaqra, Guera Tammy, DO Results 08/07/[address] [address] Jose Martin Souza MD pharmacy - [facility] 08/06/2024 7:40 AM LPN RN HOSPICE Office Visit [address] [address] Shaqra Guera Tammy, DO Medicare ANNUAL (subsequent) Visit (74 year old female); Medication Management (Unable to afford Xarelto anymore) 08/06/2024 Travel 08/05/[address] [address] Shaqra, Guera Tammy, DO Refill Request (Carvedilol) 07/27/2024 Orders Only [address] [address] Jose Martin Souza MD <No scans attached> 07/08/[address] [address] Shaqra Guera Tammy, DO Refill Request (Carvedilol) 06/12/2024 Travel 06/11/2024 Refill [facility] [address] [place] [address] Guera Dominique, Refill Request (Rosuvastatin) from Last 3 Months Immunizations Name Administration Dates Next Due COVID-19 vaccine ([employer] 30mcg/0.3mL) PF, MDV 07/28/2021 Influenza, High-dose Inactivated [...] on file Legal Sex Female 5:25 AM LPN RN HOSPICE Gender Identity Not on file Sexual Orientation [...] Comments Blood Pressure 116/78 08/06/2024 7:55 AM LPN RN HOSPICE Pulse 81 08/06/2024 7:55 AM LPN RN HOSPICE Temperature 36.6 C (97.8 F) 08/25/2023 8:01 AM LPN RN HOSPICE Respiratory Rate 20 12/03/2022 2:09 PM CDT Oxygen Saturation 96% 08/06/2024 7:55 AM LPN RN HOSPICE Inhaled Oxygen Concentration - - Weight 95.9 kg (211 lb 6.4 oz) 08/06/2024 7:55 A M LPN RN HOSPICE Height 168 cm (5' 6.14) 08/06/2024 7:55 AM LPN RN HOSPICE Body Mass Index 33.97 08/06/2024 7:55 AM LPN RN HOSPICE Plan of Treatment Upcoming Encounters Date Type Department Care Team (Late st Contact Info) Description 10/24/2024 7:40 AM CDT Office Visit [facility] [address] [place] [address] Guera Dominique DO [address] [place] [address] 11/02/2024 6:30 AM CDT Office Visit [facility] at [facility] [address] [place] [address] Jose Martin Souza MD [address] [place] [address] 12/11/2024 10:00 AM CDT Cardiac Device Check [facility] Heart Colt at [facility] [address] [place] [address] Health Maintenance Due Date Last Done Comments [...] history exists Medical Devices Implanted Type Area Golf Ball Inspector Device Identifier Shelf Expiration Date Model / Serial / Lot Standard Pacemaker- 002 Implanted:2001 by Leonides Coffey MD (Quantity not on file) Standard Pacemaker GUIDANT 1297 / [id number] / Stent Uret [id number] Contour - [id number] Implanted:Qty: 1 on 03/21/2022 by Troy Quintanilla MD at [facility] Right: Ureter [facility] [id number] / / [id number] Stent Uret [id number] Contour - [id number] Implanted:Qty: 1 on 04/07/2022 by Troy Quintanilla MD at [facility] Right: Ureter [facility] 07/09/2024 [id number] 30 / / [id number] Procedures Procedure Name Priority Date/Time Associated Diagnosis Comments PROTIME-INR Routine 09/06/2024 9:16 AM LPN RN HOSPICE PAF (paroxysmal atrial fibrillation) (HC) Anticoagulation monitoring, INR range 2-3 LIPID PANEL W REFLEX MEASURED LDL Routine 08/06/2024 9:11 AM LPN RN HOSPICE Pure hypercholesterolemia BASIC METABOLIC PANEL Routine 08/06/2024 9:11 AM LPN RN HOSPICE Essential hypertension HEMOGLOBIN A1C Routine 08/06/2024 9:11 AM LPN RN HOSPICE Elevated glucose SCAN-BONE DENSITOMETRY DEXA 06/11/2021 12:00 AM LPN RN HOSPICE COLONOSCOPY SCREENING Routine 08/08/2019 7:39 AM LPN RN HOSPICE History of colon polyps from Last 3 Months or Most Recently Relevant to Health Maintenance Results * (ABNORMAL) PROTIME-INR [21800.0] - Standing Order (09/06/2024 9:16 AM LPN RN HOSPICE) INR 2.0(H) <1.3 09/06/2024 2:38 PM LPN RN HOSPICE [facility] PROTIME 22.8(H) 10.6 - 12.4 sec 09/06/2024 2:38 PM LPN RN HOSPICE [facility] Blood BLOOD SPECIMEN / Unknown [facility] / Unknown 09/06/2024 9:16 AM LPN RN HOSPICE 09/06/2024 9:16 AM LPN RN HOSPICE Narrative [facility] - 09/06/2024 2:38 PM LPN RN HOSPICE Therapeutic Range 2.0-3.0 for most anticoagulated patients [...] UFH. Guera Dominique DO HEMATOLOGY Final Result [facility] [address] [place] [address], * (ABNORMAL) HEMOGLOBIN A1C (08/06/2024 9:11 AM LPN RN HOSPICE) HEMOGLOBIN A1C 6.0(H) <5.7 % of total Hgb [facility] Comment: For someone without known diabetes, [...] BLOOD SPECIMEN / Unknown 08/06/2024 9:11 AM LPN RN HOSPICE 08/06/2024 9:11 AM LPN RN HOSPICE Guera Dominique DO CHEMISTRY Final Result [facility] [address] [place] [address], [facility] [address] [place] [address] * LIPID PANEL W REFLEX MEASURED LDL (08/06/2024 9:11 AM LPN RN HOSPICE) [facility] Signature CHOLESTEROL, TOTAL 150 <200 mg/dL [...] Jose Martin SS et al. DORIE. 2013;310(19): 4956-4573 (http://education.BarkBox.Clearwave/faq/CUA888) CHOL/HDLC RATIO 2.1 <5.0 (calc) [facility] NON HDL CHOLESTEROL 80 <130 mg/dL (calc) [facility] Comment: For patients with diabetes plus 1 major ASCVD risk factor, treating to a non-HDL-C goal of <100 mg/dL (LDL-C of <70 mg/dL) is considered a therapeutic option. Blood BLOOD SPECIMEN / Unknown 08/06/2024 9:11 AM LPN RN HOSPICE 08/06/2024 9:11 AM LPN RN HOSPICE Guera Dominique DO CHEMISTRY Final Result Performing Organization Address [facility]/ZIP Co de Phone Number [facility] [address] [place] [address], [place] [phone] [facility] [address] [place] [address] * (ABNORMAL) BASIC METABOLIC PANEL (08/06/2024 9:11 AM LPN RN HOSPICE) [facility] GLUCOSE 103(H) 65 - 99 mg/dL [facility] Comment: Fasting reference interval For [...] BLOOD SPECIMEN / Unknown 08/06/2024 9:11 AM LPN RN HOSPICE 08/06/2024 9:11 AM LPN RN HOSPICE Guera Tammy Trip DO CHEMISTRY Final Result Performing Organization Address City[facility]/ZIP Co de Phone Number [facility] [address] [place] [address], [place] [phone] [facility] [address] [place] [address] * SCAN-BONE DENSITOMETRY DEXA (06/11/2021 12:00 AM LPN RN HOSPICE) Anatomical Region Laterality Modality Other us Scanner OTHER Final Result * COLONOSCOPY SCREENING [[id number]] (08/08/2019 7:39 AM LPN RN HOSPICE) Mayur Foster MD GI PROCEDURE ORD Final R [...] 6:53 AM 12/22/2015 1:14 PM Care Teams Coiler Operator Relationship Specialty Start Date End Date Guera Dominique DO [address] [place] [address] PCP - General Family Practice 08/06/22
== END 2024-09-09 21:02 | disposition home or self-care (01) ==
PROVIDERS: Emergency Provider Emergency Medicine; PCP Family Medicine
DX: S09.90XA Unspecified injury of head, initial encounter (principal); Z79.01 Long term (current) use of anticoagulants; W19.XXXA Unspecified fall, initial encounter
CPT/HCPCS: 70450; 72125; 99283

== ENCOUNTER 2024-11-02 06:07 | Outpatient (CLI) | payer MEDICARE, SELFPAY ==
--- NOTE | 2024-11-02 07:47 | P.ANES_ITS ---
Anesthesia Charges Start Date/Time Anesthesia Start Date: 11/02/24 Anesthesia Start Time: 07:15 Stop Date/Time Anesthesia Stop Date: 11/02/24 Anesthesia Stop Time: 07:44 Summary Extremes of Age - Over 70 or under 1: TOOL PROGRAMMER Coding CPT Codes CPT Codes: ANES LWR INTST NDSC NOS - 70973 ([id number]) P3 - PATIENT W/SEVERE SYS DISEASE, QZ - TOOL PROGRAMMER SVC W/O MISSILE INSPECTOR BY Additional Codes: Summary - Extremes of Age - Over 70 or under 1: TOOL PROGRAMMER ([id number])
--- NOTE | 2024-11-02 07:47 | W.ANESCHARGE ---
Anesthesia Charges Start Date/Time Anesthesia Start Date: 11/02/24 Anesthesia Start Time: 07:15 Stop Date/Time Anesthesia Stop Date: 11/02/24 Anesthesia Stop Time: 07:44 Summary Extremes of Age - Over 70 or under 1: HIGH PRESSURE FIRER Coding CPT Codes CPT Codes: ANES LWR INTST NDSC NOS - 65095 ([id number]) P3 - PATIENT W/SEVERE SYS DISEASE, QZ - HIGH PRESSURE FIRER SVC W/O AIR LIAISON AND SPECIAL STAFF BY Additional Codes: Summary - Extremes of Age - Over 70 or under 1: HIGH PRESSURE FIRER ([id number])
== END 2024-11-02 06:08 | disposition home or self-care (01) ==
LOC: OP CLINIC 06:08
PROVIDERS: PCP Family Medicine; Visit Provider Internal Medicine Gastroenterology
DX: Z12.11 Encounter for screening for malignant neoplasm of colon (principal); D12.2 Benign neoplasm of ascending colon; Q43.8 Other specified congenital malformations of intestine; Z86.0101 Personal history of adenomatous and serrated colon polyps
CPT/HCPCS: 00811; 45385; 88305; 99100; J2704

== ENCOUNTER 2024-12-27 12:34 | Outpatient (CLI) | payer MEDICARE, SELFPAY ==
--- NOTE | 2024-12-27 13:00 | CRLHL7_ITS ---
For Patients: As a result of the Century Cures Act, medical imaging exams and procedure reports are released immediately into your electronic medical record. You may view this report before your referring provider. If you have questions, please contact your health care provider. XR DXA BONE MINERAL DENSITY (BMD) Current height (in): 67.0. Weight (lb): 201.0. Menopause age: 33. Ethnicity: White. Reason for exam: skilled nursing (current) use of aromatase inhibitors. 1. Have you had a previous hip or vertebral fracture? Yes. 2. Have you had any fractures during your adult life which did not result from significant trauma (e.g., auto accident)? Yes. 3. Did either of your parents have a hip fracture? Yes. 4. Do you smoke? No. 5. Have you ever taken Glucocorticoids? No. 6. Do you have rheumatoid arthritis? No. 7. Do you have secondary osteoporosis? No. 8. Do you drink 3 or more alcoholic drinks per day? No. 9. Are you being treated for osteoporosis? No. 10. Have you ever taken any of the following medications: Actonel, Evista, Fosamax, Miacalcin, Reclast, Boniva, Forteo, HRT (i.e. estrogen/hormone therapy), Protelos, Prolia, Vitamin D, Calcium, other ??? please specify. ANSWER: Yes, HRT, Prolia, calcium. 11. Do you have any of the following medical conditions: Anorexia or bulimia, asthma or emphysema, end stage renal disease, hyperparathyroidism, any seizure disorders, cancer, inflammatory bowel diseases, hysterectomy, other ??? please specify. ANSWER: Yes, cancer, hysterectomy. 12. What was your maximum height (inches)? 68. 13. Do you perform weight bearing exercise regularly? No. 14. Do you regularly consume dairy products? Yes. 15. Do you drink caffeinated beverages? Yes. 16. At what age did your period start? 13. 17. Are you premenopausal? No. 18. How many full-term pregnancies have you had? 2. 19. Have you ever missed your period for more than 6 months in a row (not including or menopause)? No. TECHNIQUE: Bone mineral density study was performed using the [employer]. FINDINGS: The results of the study expressed as bone mineral density (BMD) are as follows: Lumbar spine L3-L4: BMD: 0.795 g/cm2. T-score: -2.8. Z-score: -0.2 Neck Left: BMD: 0.662 g/cm2. T-score: -1.7. Z-score: 0.4 Right: BMD: 0.615 g/cm2. T-score: -2.1. Z-score: 0.0 Total Left: BMD: 0.803 g/cm2. T-score: -1.1. Z-score: 0.7 Right: BMD: 0.779 g/cm2. T-score: -1.3. Z-score: 0.5 IMPRESSION: Osteoporosis. *Comparison exams done prior to 12/2019 were performed on different unit, the[facility]. COMPARISON: Compared with scan of 06/29/2023, the bone mineral density has decreased by 1.4 percent at the spine increased by 4.7 percent at the hip. Mike Aguayo M.D. Diagnostic Radiologist [email or web address] Transcribed: 10:47 am DW/Dictated by: Mike Aguayo MD @ 12/28/2024 8:19:00 AM (Electronically Signed)
== END 2024-12-27 12:35 | disposition home or self-care (01) ==
LOC: RAD 12:35
PROVIDERS: PCP Family Medicine; Visit Provider Physician Assistant
DX: C50.919 Malignant neoplasm of unspecified site of unspecified female breast (principal); M81.0 Age-related osteoporosis without current pathological fracture; Z79.811 Long term (current) use of aromatase inhibitors
CPT/HCPCS: 77080

== ENCOUNTER 2025-05-23 10:31 | Emergency (ER) | payer MEDICARE, SELFPAY ==
[2025-05-23 10:40] VITALS: BP 172/91; PULSE 94; RESP 24; TEMP 36.6; O2SAT 96; BMI 33.7
--- NOTE | 2025-05-23 10:49 | CRLHL7_ITS ---
For Patients: As a result of the Century Cures Act, medical imaging exams and procedure reports are released immediately into your electronic medical record. You may view this report before your referring provider. If you have questions, please contact your health care provider. INDICATION: Mid left chest pain TECHNIQUE: Chest 1 view COMPARISON: 03/01/2021 FINDINGS: Cardiovascular and mediastinum: Mediastinal contours are unchanged. Lungs and pleural spaces: Lungs are clear. No sign of infiltrate or mass. No sign of pleural effusion. No pneumothorax. Bones and soft tissues: No significant findings. IMPRESSION: No acute findings. Dictated by Mike Aguayo MD @ 05/23/2025 11:22:32 AM (Electronically Signed)
[2025-05-23 10:51] VITALS: O2SAT 96
[2025-05-23 10:59] LABS: Hematocrit* 39.0 % (33.0-51.0); Hemoglobin* 12.7 gm/dL (12.0-16.0); Immature Granulocytes Pct Auto 0.2 %; Mean Corpuscular HGB Conc 33 gm/dL (32-36); Mean Corpuscular Hemoglobin 30 pg (26-34); Mean Corpuscular Volume 93 fL (80-100); RDW Coefficient of Variation % 14.2 % (11.5-15.5); Red Blood Count* 4.18 m/uL (4.00-5.20); White Blood Count* 12.58 K/uL (4.50-11.00)
[2025-05-23 11:01] LABS: Immature Granulocytes Abs Auto 0.00 K/uL (0.00-0.30); Lymphocytes Absolute Auto 1.50 K/uL (0.90-2.90); Slide Review Reflex No
[2025-05-23 11:13] LABS: Chloride* 104 mmol/L (96-114); Potassium* 4.0 mmol/L (3.6-5.1); Sodium* 137 mmol/L (135-149)
--- NOTE | 2025-05-23 11:14 | ED.GENADULT ---
HPI - General Adult General Date Seen: 05/23/25 Chief complaint: Chest Pain Stated complaint: Severe L shoulder pain Time Seen by Provider: 05/23/25 10:54 Source: patient Mode of arrival: ambulatory Limitations: no limitations History of Present Illness HPI narrative: Patient is a 75-year-old female presenting to the emergency department for left sided back pain. She states she was driving her car when the pain came on suddenly. States he feels a cramping sensation going from the bottom of her shoulder blade down through her back. Denies ever having pain like this before. Is denies any chest pain or shortness of breath. Does have a history of a myocardial infarction but states that pain felt much different. Has a pacemaker and AFib which that due to embolic strokes. No history of PE or DVTs. Is is currently on warfarin. Nothing really seems to make the pain better or worse. Has not taken anything yet for pain as she came straight to the emergency department. Denies pain radiating to the arm. Denies fevers, chills, abdominal pain, headache, lightheadedness, dizziness, weakness, numbness, vision changes. No other concerns noted at this time. Related Data Home Medications ?Medication ?Instructions ?Recorded ?Confirmed carvedilol 3.125 mg tablet 3.125 mg PO Q12H 03/18/22 05/22/25 calcium carbonate-vitamin D3 500 1 cap PO BID 11/18/22 05/22/25 mg (1,250 mg)-50 unit capsule spironolactone 25 mg tablet 25 mg PO QDAY 08/04/23 05/22/25 rosuvastatin 5 mg tablet 5 mg PO DAILY 06/07/24 05/22/25 warfarin 5 mg tablet 5 mg PO DAILY 09/09/24 05/22/25 Previous Rx's ?Medication ?Instructions ?Recorded tamoxifen 20 mg tablet 20 mg PO DAILY #90 tabs 06/11/24 Allergies Allergy/AdvReac Type Severity Reaction Status Date / Time No Known Drug Allergies Allergy Verified 05/23/25 12:27 Review of Systems Status of ROS: Reports: 10 or more systems reviewed and unremarkable except as noted in History and below [facility] Medical History Osteoporosis ?M81.0 - Age-related osteoporosis without current pathological fracture (ICD-10) Surgical History Status post arthroscopy of right shoulder (10/29/93) ?Z98.890 - Other specified postprocedural states (ICD-10) 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) ?Z96.652 - Presence of left artificial knee joint (ICD-10) Status post total right knee replacement (04/13/17) ?Z96.651 - Presence of right artificial knee joint (ICD-10) Status post arthroscopy of right knee (04/13/18) ?Z98.890 - Other specified postprocedural states (ICD-10) H/O bilateral mastectomy ?Z90.13 - Acquired absence of bilateral breasts and nipples (ICD-10) Social History Smoking Status: Never smoker Do you use any of these nicotine containing products: None Second hand tobacco smoke exposure: No How often do you have a drink containing alcohol: monthly or less How many standard drinks containing alcohol do you have on a typical day: 1 or 2 How often do you have six or more drinks on one occasion: Never AUDIT-C Alcohol total score: 1 Non-prescribed substance use: denies use service: No Exam Narrative: Exam Narrative: Const: Well-nourished, Well-developed, in mild distress Eyes: PERRL, no conjunctival injection, and symmetrical lids HENT: Atraumatic external nose and ears. Moist mucous membranes. Neck: Symmetric, trachea midline, No thyromegaly. CVS: RRR, No murmurs or gallops. Peripheral pulses 2+ and equal in all extremities RESP: Unlabored respiratory effort. Clear to auscultation bilaterally. GI: Nontender/Nondistended, No rebound or guarding. MSK:Extremities w/o deformity, Normal Active ROM, mild tenderness noted to the left side of her back and next to the scapula at about rib 6 and radiating down the left side of her back Skin: Warm, Dry. No rashes or lesions. Neuro: Normal Muscle tone, No focal neurological deficits. Psych: Awake, Alert, & Oriented x3. Appropriate mood and affect. Const: Vital Signs, click to edit/add: Vital Signs - 24 hr 05/23/25 10:40 05/23/25 10:51 Temperature 98 F Pulse Rate [Left R adial] 94 Respiratory Rate 24 Blood Pressure [Ri ght Upper Arm] 172/91 H Pulse Oximetry 96 96 Oxygen Delivery Me thod Room Air Course Vital Signs Vital signs: Initial Vital Signs Temperature 98 F 05/23/25 10:40 Temperature Source Temporal Artery Scan 05/23/25 10:40 Pulse Rate 94 05/23/25 10:40 Pulse Rhythm Regular 05/23/25 10:40 Respiratory Rate 24 05/23/25 10:40 Blood Pressure 172/91 H 05/23/25 10:40 Blood Pressure Mean 118 H 05/23/25 10:40 Pulse Oximetry 96 05/23/25 10:40 Oxygen Delivery Method Room Air 05/23/25 10:40 Vital Signs Temperature 98 F 05/23/25 10:40 Pulse Rate 94 05/23/25 10:40 Respiratory Rate 24 05/23/25 10:40 Blood Pressure 172/91 H 05/23/25 10:40 Pulse Oximetry 96 05/23/25 10:40 Oxygen Delivery Method Room Air 05/23/25 10:40 Temperature 98 F 05/23/25 10:40 Pulse Rate 94 05/23/25 10:40 Respiratory Rate 24 05/23/25 10:40 Blood Pressure 172/91 H 05/23/25 10:40 Pulse Oximetry 96 05/23/25 10:51 Oxygen Delivery Method Room Air 05/23/25 10:40 Medications Administered Medications: Discontinued Medications Generic Name Dose Route Start Last Admin Trade Name Freq PRN Reason Stop Dose Admin Acetaminophen 1,000 mg 05/23/25 11:59 05/23/25 12:02 Acetaminophen 500 Mg Tablet PO 05/23/25 12:00 1,000 mg ONCE ONE Administration Ketorolac Tromethamine 15 mg 05/23/25 11:13 05/23/25 11:21 Ketorolac 15 Mg/Ml Inj IVP 05/23/25 11:14 15 mg ONCE ONE Administration Medical Decision Making [facility] Narrative Medical decision making narrative: Patient is a 75-year-old female presenting for back pain. This could be musculoskeletal in nature but differential also includes cardiac abnormalities, PE, aortic dissection. Overall she appears well and a relatively low concern for aortic dissection. Will do a D-dimer to help evaluate for PE. Also order BMP, CBC, D-dimer, INR, troponin, EKG. Toradol given for pain. Patient was having some improvement with the Toradol but did also request Tylenol. Chest x-ray interpreted independently by myself and the radiologist shows no acute concerning abnormalities. Lab work returned showing no acute concerning abnormalities. She has of iron mild elevated white blood cell count of 12.58. No clear signs of infection low at this time. D-dimer within normal limits. EKG and troponin shows no concerning findings. She does still have some of this back pain so I do think it would be beneficial to do a CTA to look for signs of dissection based on location of the pain in her description. CTA results were interpreted by myself and the radiologist returned showing a right lower lobe nodule, nonobstructing nephrolithiasis, S gross about it all to inferior endplate. She does have a history of cancer but she states this is order been evaluated and is not a malignancy in her vertebrae. She is seen her oncologist soon and will follow-up about the pulmonary nodule. At this time she is safe for discharge. Repeat troponin also within normal limits. She is agreeable to this plan Lab Data Labs: Lab Results 05/23/25 05/23/25 Range/Units 10:53 13:25 WBC 12.58 H (4.50-11.00) K/uL RBC 4.18 (4.00-5.20) m/uL Hgb 12.7 (12.0-16.0) gm/dL Hct 39.0 (33.0-51.0) % MCV 93 (80-100) fL MCH 30 (26-34) pg MCHC 33 (32-36) gm/dL RDW Coeff of Walt 14.2 (11.5-15.5) % Plt Count 196 (140-440) K/uL Neut % (Auto) 81.6 H (42.0-72.0) % Lymph % (Auto) 12.1 L (20-44) % [place] % (Auto) 5.8 (0.0-11.0) % Eos % (Auto) 0.1 (0.0-7.0) % Baso % (Auto) 0.2 (0.0-3.0) % Neut # (Auto) 10.30 H (1.7-7.0) K/uL Lymph # (Auto) 1.50 (0.90-2.90) K/uL [place] # (Auto) 0.70 (0.00-0.90) K/UL Eos # (Auto) 0.00 (0.00-0.50) K/uL Baso # (Auto) 0.00 (0.00-0.30) K/uL Abs Immat Gran (auto) 0.00 (0.00-0.30) K/uL Imm/Tot Granulo (auto) 0.2 % INR 1.92 H (0.91-1.10) APTT 32 (23-33) Seconds D-Dimer Quant (PE/DVT) 0.24 (0.00-0.50) ug/ml Sodium 137 (135-149) mmol/L Potassium 4.0 (3.6-5.1) mmol/L Chloride 104 (96-114) mmol/L Carbon Dioxide 23 (20-32) mmol/L Anion Gap 10 (7-15) mEq/L BUN 19 (7-30) mg/dL Creatinine 0.9 (0.5-1.5) mg/dL Estimated Creat Clear 46.54 Estimated GFR 66 ml/min Glucose 135 H (60-115) mg/dL Calcium 9.3 (8.4-10.6) mg/dL Troponin I < 0.01 < 0.01 (0.01-0.04) ng/mL Imaging Data Chest x-ray: Attestation: I have reviewed the pertinent imaging results. Radiologist's impression: No acute findings. Dictated by Mike Aguayo MD @ 05/23/2025 11:22:32 AM CTA chest abdomen and pelvis: Attestation: I have reviewed the pertinent imaging results. Radiologist's impression: 1. No evidence of aortic aneurysm or dissection. 2. Right lower lobe pulmonary nodule measuring 9 millimeters. Follow-up chest CT in 3 months or PET-CT suggested for further management. 3. Nonobstructing nephrolithiasis. Mild left pelviectasis with transition at the UPJ suggesting an underlying UPJ stenosis. 4. Mild sclerosis within the L2 vertebral body near the inferior endplate. This does not clearly conform to the endplate and differential diagnosis includes a bone island, atypical hemangioma or if there is a history of prior malignancy, a blastic lesion. Please note that all CT scans at this facility use dose modulation, iterative reconstruction, and/or weight-based dosing when appropriate to reduce radiation dose to as low as reasonably achievable. Dictated by Nadeem Kearney MD @ 05/23/2025 1:03:18 PM ECG Data Attestation: I personally reviewed and interpreted this ECG as follows: Prior ECG tracings: not available for review Interpretation: Normal Sinus rhythm with a rate of 81 beats per minute, normal intervals, normal axis, no ST or T-wave abnormalities Discharge Plan Discharge Clinical Impression: Muscle spasm Patient Disposition: Home, Self-Care Condition: Stable Instructions: Muscle Spasm (ED) Additional Instructions: Take [id number] pain medication. There was a pulmonary nodule seen on your CT that she should follow-up with your oncologist about. Return to emergency department for new or worsening symptoms. Prescriptions: No Action spironolactone 25 mg tablet 25 mg PO QDAY rosuvastatin 5 mg tablet 5 mg PO DAILY tamoxifen 20 mg tablet 20 mg PO DAILY Qty: 90 3RF carvedilol 3.125 mg tablet 3.125 mg PO Q12H warfarin 5 mg tablet 5 mg PO DAILY calcium carbonate-vitamin D3 500 mg(1,250mg) -50 unit capsule 1 cap PO BID Follow Up/Referrals: Guera Dominique DO [Primary Care Provider, Family Practice] Stand Alone Forms: [employer] Info Instructions
[2025-05-23 11:16] LABS: Anion Gap 10 mEq/L (7-15); Blood Urea Nitrogen* 19 mg/dL (7-30); Calcium* 9.3 mg/dL (8.4-10.6); Carbon Dioxide* 23 mmol/L (20-32); Creatinine* 0.9 mg/dL (0.5-1.5); Est. Creatinine Clearance* 46.54; Estimated Glomerular Filt Rate 66 ml/min; Glucose* 135 mg/dL (60-115)
[2025-05-23 11:20] LABS: INR 1.92 (0.91-1.10); Prothrombin Time 23.1 Seconds
[2025-05-23 11:25] LABS: D Dimer Quantitative* 0.24 ug/ml (0.00-0.50)
[2025-05-23] MEDS: ACETAMINOPHEN 500 MG TABLET 1000 MG PO (12:02)
--- NOTE | 2025-05-23 12:03 | CRLHL7_ITS ---
For Patients: As a result of the Century Cures Act, medical imaging exams and procedure reports are released immediately into your electronic medical record. You may view this report before your referring provider. If you have questions, please contact your health care provider. INDICATION: Sharp left-sided back pain TECHNIQUE: CT chest, abdomen and pelvis acquired with initial noncontrast followed by 95 cc Isovue 370 intravenous contrast. Axial maximum intensity projection reformatted images were performed on the scanner. COMPARISON: None. FINDINGS: CHEST: Cardiovascular structures: Noncontrast images show no evidence of intramural hematoma. Proximal great vessels are patent. Thoracic aorta is normal in caliber. Pulmonary artery grossly unremarkable. Left-sided pacemaker with leads extending to the right atrial appendage and right ventricle. The abdominal aorta is normal in caliber with mild atherosclerotic calcification. Bilateral common, internal and external iliac arteries are widely patent. The inferior mesenteric, superior mesenteric, celiac and renal arteries are patent. Mediastinum and jose luis: Subcentimeter mediastinal lymph nodes. Lungs and pleura: No pleural effusion or pneumothorax. Mosaic attenuation pattern within the lungs with some centrilobular nodularity in the right lower lobe and a right lower lobe pulmonary nodule measuring 9 millimeters (5, 51). 2 millimeter pulmonary nodule within the superior segment of the left lower lobe (5, 36). Chest wall and axilla: Status post bilateral mastectomy. Intramuscular lipoma within the left serratus musculature. Bones: No suspicious bone lesions. Unremarkable for age. ABDOMEN AND PELVIS: Liver: Unremarkable. Gallbladder and bile ducts: Status post cholecystectomy. Pancreas: Unremarkable. Spleen: Unremarkable. Adrenal glands: Unremarkable. Kidneys: Mild scarring at the lower pole of the right kidney with nonobstructing nephrolithiasis. Mild left pelviectasis. GI tract: Status post gastric bypass. No dilated loops of large or small intestine. Lymph nodes: Unremarkable. Miscellaneous: Fat containing umbilical hernia. Pelvic Organs: Status post hysterectomy. Bones: Degenerative disc disease upper lumbar spine. Amorphous sclerosis within the L2 vertebral body measuring 13 millimeters. IMPRESSION: 1. No evidence of aortic aneurysm or dissection. 2. Right lower lobe pulmonary nodule measuring 9 millimeters. Follow-up chest CT in 3 months or PET-CT suggested for further management. 3. Nonobstructing nephrolithiasis. Mild left pelviectasis with transition at the UPJ suggesting an underlying UPJ stenosis. 4. Mild sclerosis within the L2 vertebral body near the inferior endplate. This does not clearly conform to the endplate and differential diagnosis includes a bone island, atypical hemangioma or if there is a history of prior malignancy, a blastic lesion. Please note that all CT scans at this facility use dose modulation, iterative reconstruction, and/or weight-based dosing when appropriate to reduce radiation dose to as low as reasonably achievable. Dictated by Nadeem Kearney MD @ 05/23/2025 1:03:18 PM (Electronically Signed)
[2025-05-23 14:24] VITALS: BP 162/88; PULSE 90; RESP 16; O2SAT 96
== END 2025-05-23 14:25 | disposition home or self-care (01) ==
PROVIDERS: Family Medicine; Emergency Provider Student in an Organized Health Care Education/Training Program; PCP Family Medicine
DX: M62.830 Muscle spasm of back (principal); Z79.01 Long term (current) use of anticoagulants
CPT/HCPCS: 36415; 71045; 71275; 74174; 80048; 82565; 84484; 85025; 85379; 85610; 85730; 93005; 94761; 96374; 99284; 99285; A9270; J1885; Q9967

== ENCOUNTER 2025-06-20 15:21 | Outpatient (CLI) | payer MEDICARE, SELFPAY ==
--- NOTE | 2025-06-20 16:00 | CRLHL7_ITS ---
For Patients: As a result of the 21st Century Cures Act, medical imaging exams and procedure reports are released immediately into your electronic medical record. You may view this report before your referring provider. If you have questions, please contact your health care provider. EXAM: FDG PET-CT Skull Base to Thighs CLINICAL INFORMATION: 75-year-old woman with history of breast cancer. History of lung nodule. PET CT ordered for additional characterization. TECHNIQUE: Radiopharmaceutical: 18F-fluorodeoxyglucose (18F-FDG) Dose: 12.64 MilliCurie. Blood glucose: 61 mg/dL. Image acquisition: At approximately 60 minutes following IV tracer administration via a right antecubital vein, positron emission tomography was performed from the skull base through the mid thigh. Non-contrast low-dose helical CT imaging was performed over the same range without breath-hold for attenuation correction of PET images and anatomic correlation; it is neither sufficient, nor should it be substituted for diagnostic purposes. COMPARISON: CT chest 06/20/2025 FINDINGS: Mediastinal blood pool FDG uptake: SUVMax 2.8 (Image 89) Liver background parenchymal FDG uptake: SUVMax 4.0 (Image 127) PET Findings: Bilateral mastectomies. No abnormal focal increased FDG uptake in the chest wall. Mildly FDG avid spiculated cavitary 1.3 x 1.0 cm lung nodule in the right lower lobe SUVmax 3.2, (images 96-100). Additional faintly FDG avid subcentimeter lung nodules adjacent to the nodule described above, for example a 0.7 cm nodule, SUV max 2.5 (images 96, 102), raising concern for satellite metastatic lung nodules. Mildly FDG avid mediastinal and bilateral hilar lymph nodes, for example: * Left hilar node SUVmax 3.0, (image 83). * Right hilar node SUVmax 3.3, (image 87). * 1.4 x 1.1 cm right lower paratracheal node SUVmax 3.3, (image 83). No abnormal focal increased FDG uptake in the visualized skeleton. Non FDG avid sclerotic lesion in the L2 vertebral body, likely treated/quiescent osseous metastatic disease. No additional sites of new or progressive FDG avid dylan or distant metastatic disease. Tracer uptake elsewhere is physiologic. Non-PET findings: Bilateral lens replacements. Coronary artery calcifications. Atherosclerotic calcifications of the thoracic and abdominal aorta. Left-sided cardiac pacemaker. Cholecystectomy clips. Punctate non-obstructive calyceal stone in the right kidney. Mesenteric panniculitis. Mild left hydronephrosis and dilated left renal pelvis and normal size of the left ureter, compatible with ureteropelvic junction obstruction. Hysterectomy. Multilevel degenerative changes in the spine. IMPRESSION: 1. Bilateral mastectomies. No evidence of FDG avid local recurrent neoplasm in the chest wall. 2. Mildly FDG avid spiculated cavitary 1.3 x 1.0 cm lung nodule in the right lower lobe, raises concern for a primary lung neoplasm. Correlate with tissue sampling pathology. 3. Additional faintly FDG avid subcentimeter lung nodules adjacent to the nodule described above raise concern for satellite metastatic intralobar lung nodules. 4. Mildly FDG avid mediastinal and bilateral hilar lymph nodes raising concern for dylan metastases. Differential considerations include inflammatory lymph nodes. 5. Mild left hydronephrosis and dilated left renal pelvis and normal size of the left ureter, compatible with ureteropelvic junction obstruction. 6. No additional sites of new or progressive FDG avid dylan or distant metastatic disease. Dictated by Carlos Monsivais MD @ 06/24/2025 11:17:18 PM (Electronically Signed)
== END 2025-06-20 15:22 | disposition home or self-care (01) ==
LOC: RAD 15:22
PROVIDERS: PCP Family Medicine; Visit Provider Internal Medicine Hematology & Oncology
DX: C50.411 Malignant neoplasm of upper-outer quadrant of right female breast (principal); R91.8 Other nonspecific abnormal finding of lung field; N13.30 Unspecified hydronephrosis
CPT/HCPCS: 78815; A9552